=== PATIENT | male | born 1975 | race Caucasian/White ===

== ENCOUNTER 2018-01-14 15:04 | Inpatient (IN) | payer OTHER ==
[2018-01-14 16:36] LABS: ABS Basophils 0.1 10^3/ul (0-0.2); ABS Eosinophils 0.2 10^3/ul (0-0.6); ABS Lymphocytes 2.1 10^3/ul (1.0-4.8); ABS Monocytes 0.6 10^3/ul (0-0.8); ABS Neutrophils 3.4 10^3/ul (1.5-7.7); ABS Nucleated RBC 0 10^3/ul; Eosinophil % 2.6 % (0-6); Hematocrit 42 % (42-52); Hemoglobin 15.4 g/dl (14.0-18.0); Lymphocyte % 33.1 % (25-47); Mean Corpuscular HGB Conc 37 g/dl (31-36); Mean Corpuscular Hemoglobin 32 pg (27-31); Mean Corpuscular Volume 87 fL (80-94); Mean Platelet Volume 6.9 um3 (7.4-10.4); Nucleated Red Blood Cells % 0.1; Platelet Count 242 10^3/ul (150-450); Red Blood Count 4.78 10^6/ul (4.0-5.4); Red Cell Distribution Width 13 % (10.5-15); White Blood Count 6.3 10^3/ul (3.5-10.8)
[2018-01-14 16:41] LABS: Urine Appearance Clear; Urine Blood Negative (Negative); Urine Color Yellow; Urine Ketones Negative (Negative); Urine Protein Negative (Negative); Urine Specific Gravity 1.031 (1.010-1.030); Urine Urobilinogen Positive (Negative)
[2018-01-14] MEDS ORDERED: LORazepam TAB(*) 1 MG PO ONE (21:49)
--- NOTE | 2018-01-14 23:16 | ED ---
Sarah Gardiner Nilda, scribed for Jose Wren MD on 01/14/18 at 1729 . Psychiatric Complaint - HPI Summary HPI Summary: This patient is a 42 year old M presenting to [facility] accompanied by family with a chief complaint of constant SI thoughts and worsening depression for the past few months. Symptoms alleviated by nothing including counseling and medications. Patient denies ETOH and drugs today. Medications include Antidepressant, Ativan, and Limictal. PMHx includes major depressive disorder with anxiety. - History Of Current Complaint Chief Complaint: EDMentalHealth Time Seen by Provider: 01/14/18 15:53 Hx Obtained From: Patient Onset/Duration: Gradual Onset, Lasting Weeks, Still Present Timing: Constant Character: Depressed Alleviating Factor(s): Nothing Related History: Positive For: Prior Psychiatric Issues Has Suicidal: Reports: Thoughts - Allergies/Home Medications Allergies/Adverse Reactions: Allergies Allergy/AdvReac Type Severity Reaction Status Date / Time No Known Allergies Allergy Verified 01/14/18 15:20 Home Medications: Home Medications LORazepam TAB(*) [Ativan 1 MG TAB (*)] 2 mg PO BID 01/14/18 [History Confirmed 01/14/18] Multivitamins/Minerals TAB* [Theragran/minerals TAB*] 1 tab PO DAILY 01/14/18 [ History Confirmed 01/14/18] Vortioxetine (NF) [Trintellix (NF)] 20 mg PO DAILY 01/14/18 [History Confirmed 01/14/18] lamoTRIgine TAB(*) [LaMICtal TAB(*)] 100 mg PO DAILY 01/14/18 [History Confirmed 01/14/18] PMH/Surg Hx/FS Hx/Imm Hx Sensory History: Denies: Hx Legally Blind EENT History: Denies: Hx Deafness Psychiatric History: Reports: Hx Anxiety, Hx Depression, Hx Inpatient Treatment Denies: Hx Eating Disorder, Hx of Violent Episodes Against Others - Immunization History Date of Tetanus Vaccine: Unknown Date of Influenza Vaccine: None Infectious Disease History: No Infectious Disease History: Denies: Traveled Outside the [place] in Last 30 Days - Family History Known Family History: Positive: Diabetes, Other - negative mental health - Social History Alcohol Use: Rare Substance Use Type: Reports: None Smoking Status (MU): Never Smoked Tobacco Review of Systems Negative: Shortness Of Breath Psychological: Other - SI Positive: Depressed All Other Systems Reviewed And Are Negative: Yes Physical Exam - Summary Physical Exam Summary: General: well-appearing, no pain distress Skin: warm, color reflects adequate perfusion, dry Head: normal Eyes: EOMI, MONTEZ ENT: normal Neck: supple, nontender Respiratory: CTA, breath sounds present Cardiovascular: RRR Abdomen: soft, nontender Bowel: present Musculoskeletal: normal, strength/ROM intact Neurological: normal, sensory/motor intact, A&O x3 Psychological: affect/mood appropriate Triage Information Reviewed: Yes Vital Signs On Initial Exam: Initial Vitals Temp Pulse Resp BP Pulse Ox 99.4 F 88 16 128/75 97 01/14/18 15:17 01/14/18 15:17 01/14/18 15:17 01/14/18 15:17 01/14/18 15:17 Vital Signs Reviewed: Yes Diagnostics - Vital Signs Vital Signs Temp Pulse Resp BP Pulse Ox 01/14/18 15:17 99.4 F 88 16 128/75 97 - Laboratory Lab Results: Lab Results 01/14/18 01/14/18 01/14/18 Range/Units 06:00 06:00 16:18 WBC 6.3 (3.5-10.8) 10^3/ul RBC 4.78 (4.0-5.4) 10^6/ul Hgb 15.4 (14.0-18.0) g/dl Hct 42 (42-52) % MCV 87 (80-94) fL MCH 32 H (27-31) pg MCHC 37 H (31-36) g/dl RDW 13 (10.5-15) % Plt Count 242 (150-450) 10^3/ul MPV 6.9 L (7.4-10.4) um3 Neut % (Auto) 54.5 (38-83) % Lymph % (Auto) 33.1 (25-47) % [place] % (Auto) 9.0 H (0-7) % Eos % (Auto) 2.6 (0-6) % Baso % (Auto) 0.8 (0-2) % Absolute Neuts (auto) 3.4 (1.5-7.7) 10^3/ul Absolute Lymphs (auto) 2.1 (1.0-4.8) 10^3/ul Absolute Monos (auto) 0.6 (0-0.8) 10^3/ul Absolute Eos (auto) 0.2 (0-0.6) 10^3/ul Absolute Basos (auto) 0.1 (0-0.2) 10^3/ul Absolute Nucleated RBC 0 10^3/ul Nucleated RBC % 0.1 Sodium 139 (139-145) mmol/L Potassium Pending Chloride 102 (101-111) mmol/L Carbon Dioxide 30 (22-32) mmol/L Anion Gap Pending BUN 19 (6-24) mg/dL Creatinine 0.90 (0.67-1.17) mg/dL Est GFR ( Amer) 119.6 (>60) Est GFR (Non-Af Amer) 93.0 (>60) BUN/Creatinine Ratio 21.1 H (8-20) Glucose 100 (70-100) mg/dL Calcium 9.7 (8.6-10.3) mg/dL Total Bilirubin 0.50 (0.2-1.0) mg/dL AST Pending ALT 23 (7-52) U/L Alkaline Phosphatase 68 (34-104) U/L Total Protein 7.5 (6.4-8.9) g/dL Albumin 4.9 (3.2-5.2) g/dL Globulin 2.6 (2-4) g/dL Albumin/Globulin Ratio 1.9 (1-3) TSH 1.12 (0.34-5.60) mcIU/mL Urine Color Yellow Urine Appearance Clear Urine pH 5.0 (5-9) Ur Specific [place] 1.031 H (1.010-1.030) Urine Protein Negative (Negative) Urine Ketones Negative (Negative) Urine Blood Negative (Negative) Urine Nitrate Negative (Negative) Urine Bilirubin Negative (Negative) Urine Urobilinogen Positive A (Negative) Ur Leukocyte Esterase Negative (Negative) Urine Glucose Negative (Negative) Salicylates < 2.50 (<30) mg/dL Urine Opiates Screen (None Detect) Acetaminophen < 15 mcg/mL Ur Barbiturates Screen (None Detect) Ur Phencyclidine Scrn (None Detect) Ur Amphetamines Screen (None Detect) U Benzodiazepines Scrn (None Detect) Urine Cocaine Screen (None Detect) U Cannabinoids Screen (None Detect) Serum Alcohol < 10 (<10) mg/dL 05/07/18 Range/Units 16:18 WBC (3.5-10.8) 10^3/ul RBC (4.0-5.4) 10^6/ul Hgb (14.0-18.0) g/dl Hct (42-52) % MCV (80-94) fL MCH (27-31) pg MCHC (31-36) g/dl RDW (10.5-15) % Plt Count (150-450) 10^3/ul MPV (7.4-10.4) um3 Neut % (Auto) (38-83) % Lymph % (Auto) (25-47) % [place]lan % (Auto) (0-7) % Eos % (Auto) (0-6) % Baso % (Auto) (0-2) % Absolute Neuts (auto) (1.5-7.7) 10^3/ul Absolute Lymphs (auto) (1.0-4.8) 10^3/ul Absolute Monos (auto) (0-0.8) 10^3/ul Absolute Eos (auto) (0-0.6) 10^3/ul Absolute Basos (auto) (0-0.2) 10^3/ul Absolute Nucleated RBC 10^3/ul Nucleated RBC % Sodium (139-145) mmol/L Potassium Chloride (101-111) mmol/L Carbon Dioxide (22-32) mmol/L Anion Gap BUN (6-24) mg/dL Creatinine (0.67-1.17) mg/dL Est GFR ( Amer) (>60) Est GFR (Non-Af Amer) (>60) BUN/Creatinine Ratio (8-20) Glucose (70-100) mg/dL Calcium (8.6-10.3) mg/dL Total Bilirubin (0.2-1.0) mg/dL AST ALT (7-52) U/L Alkaline Phosphatase (34-104) U/L Total Protein (6.4-8.9) g/dL Albumin (3.2-5.2) g/dL Globulin (2-4) g/dL Albumin/Globulin Ratio (1-3) TSH (0.34-5.60) mcIU/mL Urine Color Urine Appearance Urine pH (5-9) Ur Specific [place] (1.010-1.030) Urine Protein (Negative) Urine Ketones (Negative) Urine Blood (Negative) Urine Nitrate (Negative) Urine Bilirubin (Negative) Urine Urobilinogen (Negative) Ur Leukocyte Esterase (Negative) Urine Glucose (Negative) Salicylates (<30) mg/dL Urine Opiates Screen None detected (None Detect) Acetaminophen mcg/mL Ur Barbiturates Screen None detected (None Detect) Ur Phencyclidine Scrn None detected (None Detect) Ur Amphetamines Screen None detected (None Detect) U Benzodiazepines Scrn None detected (None Detect) Urine Cocaine Screen None detected (None Detect) U Cannabinoids Screen None detected (None Detect) Serum Alcohol (<10) mg/dL Result Diagrams: 01/14/18 06:00 01/14/18 16:18 Lab Statement: Any lab studies that have been ordered have been reviewed, and results considered in the medical decision making process. Course/Dx - Course Course Of Treatment: Medically cleared for MHE at 19:06. Medications reviewed. - Differential Dx/Clinical Impression Provider Diagnosis: Mental health problem Discharge - Sign-Out/Discharge Documenting (check all that apply): Sign-Out Patient Signing out patient TO: Dougie Xiao - pending dispo, awaiting MHE. - Discharge Plan Condition: Stable Disposition: [facility]ATRIC FACILITY-[facility] [place] Discharge Disposition Comment: pending dispo, awaiting MHE. Referrals: Otilio Malin MD [Primary Care Provider] - - Billing Disposition and Condition Condition: STABLE Disposition: [facility] [place] The documentation as recorded by the Sarah khan Nilda accurately reflects the service I personally performed and the decisions made by , Jose Wren MD.
--- NOTE | 2018-01-15 06:32 | ED ---
Taryn Gardiner Rebecca, scribed for Dougie Xiao MD on 01/15/18 at 0612 . Progress - Progress Note Progress Note: Pt was signed out by Dr. Wren, pending disposition, awaiting MHE. Course/Dx - Course Course Of Treatment: Pt was signed out by Dr. Wren pending disposition, awaiting MHE. At shift change, the case has been reviewed by Dr. Palomino ( psychiatrist) and pt has been designated as a MHU hold and will be signed out to the next ED attending, Dr. Cruz. - Diagnoses Provider Diagnoses: Mental health problem Discharge - Sign-Out/Discharge Documenting (check all that apply): Sign-Out Patient, Receiving Sign-Out Signing out patient TO: Emmanuel Cruz Receiving patient FROM: Jose Wren - Discharge Plan Condition: Stable Disposition: [facility]AT[facility] FACILITY[facility] [place] Referrals: Otilio Malin MD [Primary Care Provider] - The documentation as recorded by the Taryn khan Rebecca accurately reflects the service I personally performed and the decisions made by Ninoska temple Abdul, MD.
[2018-01-15] MEDS ORDERED: LORazepam TAB(*) 1 MG PO ONE (11:05)
[2018-01-15] MEDS ORDERED: lamoTRIgine TAB(*) 25 MG PO ONE (11:05)
[2018-01-15] MEDS ORDERED: lamoTRIgine TAB(*) 100 MG PO ONE (12:00)
[2018-01-15] MEDS: VORTIOXETINE 10 MG PO SCH (12:20)
[2018-01-15] MEDS ORDERED: Al Hydrox/Mg Hydrox/Simet LIQ* 30 ML UDC PO PRN (13:52)
[2018-01-15] MEDS ORDERED: Acetaminophen TAB* 325 MG PO ONE (13:52)
--- NOTE | 2018-01-15 15:56 | ED ---
Nick Gardiner Jennifer, scribed for Emmanuel Cruz MD on 01/15/18 at 1107 . Progress - Progress Note Progress Note: Pt was signed out by Dr. Xiao, pending disposition, awaiting MHE. The patient has had a mental health evaluation and will be admitted to [facility] [place]. - Consult/PCP Time Called: 19:07 Course/Dx - Course Course Of Treatment: Pt was signed out by Dr. Xiao pending MHE and disposition. The patient is diagnosed with major depression and admitted to [facility] [place]. - Diagnoses Provider Diagnoses: Major depression Discharge - Sign-Out/Discharge Documenting (check all that apply): Discharge/Admit/Transfer - Discharge Plan Condition: Stable Disposition: [facility]AT[facility] FACILITY[facility] [place] - Billing Disposition and Condition Condition: STABLE [facility]position: [facility] [place] The documentation as recorded by the Nick khan Jennifer accurately reflects the service I personally performed and the decisions made by Anthony temple Tudie-Ann, MD.
[2018-01-15] MEDS ORDERED: traZODone TAB* 100 MG PO SCH (21:00)
[2018-01-15] MEDS: lamoTRIgine TAB(*) 100 MG PO SCH (21:06)
[2018-01-16] MEDS: VORTIOXETINE 10 MG PO SCH (08:28)
--- NOTE | 2018-01-16 10:05 | HP ---
H&P (Free Text) History and Physical: Psychiatric Attending History and Physical NAME: Jet Asher : 1975 AGE: 42 PROVIDER: Yonny Yin D.O. DATE OF ADMISSION: 01/16/2018 JUSTIFICATION FOR ADMISSION: Patient brought tot he emergency room by his after revealing that he has been ruminating about committing suicide daily with a plan to hang himself. Patient has history of recurrent depression and two past suicide attempts. He requires imminent admission to an inpatient psychiatric unit for treatment 24 hour supervision as he is danger to self CHIEF COMPLAINT: "My depression started again in early august and its gotten worse to the point that I only feel dread, anxiety, loss of pleasure. I came to get help because I couldn't stop thinking about ending my life..." HISTORY OF THE PRESENT ILLNESS: Mr Asher is a 42 yo father of two children who is temporarily living with parents since leaving family home a month ago after he and his agreed that his young children would be better off if not exposed to his depression which included daily crying spells. Mr. Asher is a reliable historian. I also reviewed past records including his admissions to [facility] in Jul and Aug 2014. Mr Asher reports that he has been diagnosed with Recurrent Depression and OCD but he does not believe that the latter diagnosis is correct. His history is remarkable for being treated with antidepressant medication since 1996 when he first was treated for panic attacks in college. He had his first hospitalization and first depressive episode in 2004 at the age of 30. He attempted suicide by Lexapro overedose at that time. He was treated successfully with Celexa up until 2013 when he had a recurrent episode. He was readmitted to [facility] in 07/2014. at that time patient's symptoms also included rumination over childhood football injury including the belief that this had led to right sided weakness, missed opportunities in his life. 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 patient refused antidepressants and was discharged on low dose depakote and valium for sleep. He was referred to residential OCD treatment program in [place] but left that program after one week. He was readmitted to [facility] in 08/2014 for persistent severe depression after having placed a noose around his neck at his parents home and contemplating committing suicide. patient was discharged on prozac 80 mg and Seroquel 25 mg qam and 100 mg qhs after 2 week hospital stay. Patient was to follow up at [facility]. Patient represented to the ED two weeks after discharge in late September 2013 after having discharged a firearm at parents home in the context of ruminating about suicide. Of concern was that patients parents had participated in family meetings and had assured that their son had no access to firearms. No bed was available and patient was transferred and admitted to [facility]. He relates that he was started on Effexor titrated up to 112.75 mg (having been lowered from 150 mg which resulted in agitation). Since discharge from that hospital stay in Sep 2014 patient's effexor was renewed by his PCP. patient reports that he functioned very well, was able to work, and take care of his family, and was not experiencing anxiety or obsessional ruminations. He was compliant with his medication. 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 Patient reports that his anger caused him to excercise poor judgment on multiple occasions including sending emails to his boss which were uncharacteristically blunt and devaluing. He also reports excercising poor boundaries with a female colleague in terms of being emotionally too intimate and attempting to give her advise which he believes was crossing boundaries that he normally doesnt cross. complaint was filed against him that he was physically to close to her. patient denies problems with sleep or decreased need for sleep,hypersexuality, excessive spending, shoplifting, breaking the law, homicidal ideation, hallucinations, delusions, or paranoid ideation. In late July 2017 he reports that he began to feel sad and quite abruptly he had onset of another depressive episode characterized by anhedonia, low energy, increased fatigue, preoccupation with feelings of hopelessness, worthlessness, obsessing about high school football injury once again, incresed guilt and remorse about past mistakes or perceived transgressions., feelings of dread, intense fear and despair, decreaed appetite with 20 lb weight loss,inability to go to work, poor concentration and inability to continue with his graduate studies. Patient also reports crying daily with almost daily thoughts of suicide which he did not share with his therapist. patient saw is GP in early august who raised Effexor to 150 mg daily with no improvement. By end of August symptoms were so severe that he returned to his GP who added Wellbutrin. At that time pateint reports he had multiple somatic symptoms, felt physcially unwell and very agitated. He was referred to Brittany Rae NP for medication evaluation who he first saw in October 2017. He was tapered off Effexor XR and started on Trintellix which was raised a month ago to 20 mg daily. Lamictal was started a month ago and is currently at 100 mg daily. Patient reports no improvement from this regimen. He was also given Ativan 2 mg BID which has been helping with sleep and daytime agitation. In late October, he moved to parents home so crying wouldn't upset his children. He has been unable to work since late August 2017 and his job is being held for him. Patient reports main stressor is that he has been relying on his parents for financial and emotional support and he feels very guilty about this. also worries about strain on his who homeschools his two sons. PAST PSYCHIATRIC HISTORY: Patient is currently followed by Brittany Rae NP for medication management. He has been seeing a therapist twice weekly named Leonor Gage. past medication trials include: lexapro, Prozac, Paxil, Citalopram, Wellbutrin, Duloxetine, Venlafaxine, Klonopin Diazepam, Ambien, Trintellix, Lamictal, Ativan, Seroquel. reports cutting himself once as a way of punishing himself. SUBSTANCE ABUSE HISTORY: denies past or present abuse of alcohol or drugs. PAST MEDICAL HISTORY: reports that he sustained injury to neck and right side of his body while playing football in 8th grade. states he was "paralyzed" at the time. never came to medical attention. since that injury he has at various times attributed various somatic complaints as arising secondary to that accidental injury. CURRENT MEDICATIONS: Trintellix 20 mg qd Lamictal 100 mg qam Ativan 2 mg BID ALLERGIES: NKDA FAMILY PSYCHIATRIC HISTORY: Alcoholism on paternal side. denies any known family history of psychiatric illness or suicide. FAMILY/PSYCHOSOCIAL HISTORY: Born and raised in [place]. family was intact. father worked as engineering surveyor. mother worked as teacher. He has one older brother. Did well in elementary school and middle school. denies disruptive behaviors, hyperactivity, attentional probelms in early or middle childhood. Grades began to slip in high school. reports he became more defiant and began displaying a temper which he had previously never had. "Its like I had a chip on my shoulder". binge drank from age 17 to 22. arrested twice for public intoxication. graduated high school and went to [employer] for college. Had "first mental health issue in college". developed panic attacks toward end of college and was treated with Paxil. Did well academically and graduated [employer] in 1998 (took him five years to graduate). 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 met and in 2005. 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 REVIEW OF SYSTEMS: 14 point review of systems was non contributory Vital Signs: Temp Pulse Resp BP Pulse Ox 99.2 F 87 14 104/68 99 01/16/18 07:29 01/16/18 07:29 01/16/18 20:14 01/16/18 07:29 01/16/18 07:29 PHYSICAL EXAMINATION: Skin: warm, dry, reflects adequate perfusion, no exanthem Head: atraumatic Neck: supple, non-tender, no cervical or submandibular adenopathy, no bruits Eyes: EOMI, MARLEN, conjunctiva without injection ENT: no nasal discharge, TM's w/o injection, pharynx without exudate or injection, no tonsillar hypertrophy, mucous membranes moist. no evidence of oral lesions Respiratory: CTA bilaterally without expiratory wheezing, no rhonchi, no retractions visible Cardiovascular: RRR normal s1 and s2. radial, brachoradialis, dorsalis pedis pulses symmetic 5+/5 bilaterally Abdomen: soft non tender, normoactive bowel sound present in all quadrants, no HSM, no palpable masses Musculoskeletal: full range of motions in all extremities, no evidence of spinal curvature Lymph: no axillary lypmphadenopathy Neuro: CN 2 to 12 intact, no sensory deficits, motor 5+/5 in upper and lower extremites, bilaterally symmetric no cerebellar signs, normal gait, no tremor MENTAL STATUS EXAMINATION: Patient is a well developed and nourished tall 43 year old male. j Patient was fairly related and came into interview willingly. He was dressed casually and had adequate hygiene. patient has an anxious demeanor and was somewhat restless during the interview. He appeared to be in mild to moderate emotional distress. He frequently mentioned feeling very anxious, fearful and experiencing significant feeling of dread or worry that something terrible was going to happen. .Speech is normal rate and volume. normal fluency and spontaneity. patient articulate Mood: is dysphoric and very anxious. patient has mild psychomotor agitation. affect is constricted, sad, anxious, with low amplitude of response. Thought process is logical, goal directed and coherent. Thought content: patient endorses the following depressive symptoms: decreased concentration, dysphoric mood, crying jags, decreased energy, decreased motivation, loss of interest and decreased ability to experience pleasure,daily daily thougths of suicide with recent increase in his intention to carry it out by hanging himself this is second time that he informed family about the severity of his suicidal impulses because of his fear that he was going to act upon his impulses, decreased ability to fall asleep at times decreased appetite with 20 lb weight loss in past 4 weeks, feeling increased shame and regret for past events. denies auditory, visual hallucinations, Paranoia, delusions, denies homicidal thoughts. Cogntive: alert and fully oriented in all spheres. He reports diminished concentration past few months. attention, concentration and memory not tested due to time constraints. Insight and Judgment both good/intact. LABORATORY DATA: Laboratory Results - last 24 hr 01/16/18 01/16/18 15:54 15:54 Hemoglobin A1c 4.4 Free T4 0.67 Thyroxine (T4) 5.68 L Laboratory Last Values WBC 6.3 10^3/ul (3.5-10.8) 01/14/18 06:00 RBC 4.78 10^6/ul (4.0-5.4) 01/14/18 06:00 Hgb 15.4 g/dl (14.0-18.0) 01/14/18 06:00 Hct 42 % (42-52) 01/14/18 06:00 MCV 87 fL (80-94) 01/14/18 06:00 MCH 32 pg (27-31) H 01/14/18 06:00 MCHC 37 g/dl (31-36) H 01/14/18 06:00 RDW 13 % (10.5-15) 01/14/18 06:00 Plt Count 242 10^3/ul (150-450) 01/14/18 06:00 MPV 6.9 um3 (7.4-10.4) L 01/14/18 06:00 Neut % (Auto) 54.5 % (38-83) 01/14/18 06:00 Lymph % (Auto) 33.1 % (25-47) 01/14/18 06:00 [place] % (Auto) 9.0 % (0-7) H 01/14/18 06:00 Eos % (Auto) 2.6 % (0-6) 01/14/18 06:00 Baso % (Auto) 0.8 % (0-2) 01/14/18 06:00 Absolute Neuts (auto) 3.4 10^3/ul (1.5-7.7) 01/14/18 06:00 Absolute Lymphs (auto) 2.1 10^3/ul (1.0-4.8) 01/14/18 06:00 Absolute Monos (auto) 0.6 10^3/ul (0-0.8) 01/14/18 06:00 Absolute Eos (auto) 0.2 10^3/ul (0-0.6) 01/14/18 06:00 Absolute Basos (auto) 0.1 10^3/ul (0-0.2) 01/14/18 06:00 Absolute Nucleated RBC 0 10^3/ul 01/14/18 06:00 Nucleated RBC % 0.1 01/14/18 06:00 Sodium 139 mmol/L (139-145) 01/14/18 16:18 Potassium TNP 01/14/18 16:18 Chloride 102 mmol/L (101-111) 05/07/18 16:18 Carbon Dioxide 30 mmol/L (22-32) 01/14/18 16:18 Anion Gap 7 mmol/L (2-11) 01/14/18 16:18 BUN 19 mg/dL (6-24) 01/14/18 16:18 Creatinine 0.90 mg/dL (0.67-1.17) 01/14/18 16:18 Est GFR ( Amer) 119.6 (>60) 01/14/18 16:18 Est GFR (Non-Af Amer) 93.0 (>60) 01/14/18 16:18 BUN/Creatinine Ratio 21.1 (8-20) H 01/14/18 16:18 Glucose 100 mg/dL (70-100) 01/14/18 16:18 Hemoglobin A1c 4.4 % (4.0-5.6) 01/16/18 15:54 Calcium 9.7 mg/dL (8.6-10.3) 01/14/18 16:18 Total Bilirubin 0.50 mg/dL (0.2-1.0) 01/14/18 16:18 AST TNP 01/14/18 16:18 ALT 23 U/L (7-52) 01/14/18 16:18 Alkaline Phosphatase 68 U/L (34-104) 01/14/18 16:18 Total Protein 7.5 g/dL (6.4-8.9) 01/14/18 16:18 Albumin 4.9 g/dL (3.2-5.2) 01/14/18 16:18 Globulin 2.6 g/dL (2-4) 01/14/18 16:18 Albumin/Globulin Ratio 1.9 (1-3) 01/14/18 16:18 TSH 1.12 mcIU/mL (0.34-5.60) 01/14/18 16:18 Free T4 0.67 ng/dL (0.61-1.12) 01/16/18 15:54 Thyroxine (T4) 5.68 mcg/mL (6.09-12.23) L 01/16/18 15:54 Urine Color Yellow 01/14/18 06:00 Urine Appearance Clear 01/14/18 06:00 Urine pH 5.0 (5-9) 01/14/18 06:00 Ur Specific [place] 1.031 (1.010-1.030) H 01/14/18 06:00 Urine Protein Negative (Negative) 01/14/18 06:00 Urine Ketones Negative (Negative) 01/14/18 06:00 Urine Blood Negative (Negative) 01/14/18 06:00 Urine Nitrate Negative (Negative) 01/14/18 06:00 Urine Bilirubin Negative (Negative) 01/14/18 06:00 Urine Urobilinogen Positive (Negative) A 01/14/18 06:00 Ur Leukocyte Esterase Negative (Negative) 01/14/18 06:00 Urine Glucose Negative (Negative) 01/14/18 06:00 Salicylates < 2.50 mg/dL (<30) 01/14/18 16:18 Urine Opiates Screen None detected (None Detect) 01/14/18 16:18 Acetaminophen < 15 mcg/mL 01/14/18 16:18 Ur Barbiturates Screen None detected (None Detect) 01/14/18 16:18 Ur Phencyclidine Scrn None detected (None Detect) 01/14/18 16:18 Ur Amphetamines Screen None detected (None Detect) 01/14/18 16:18 U Benzodiazepines Scrn None detected (None Detect) 01/14/18 16:18 Urine Cocaine Screen None detected (None Detect) 01/14/18 16:18 U Cannabinoids Screen None detected (None Detect) 01/14/18 16:18 Serum Alcohol < 10 mg/dL (<10) 01/14/18 16:18 IMPRESSION: 42 yo with history of recurrent severe depressive episodes (this would be third ) associated with suicidal ideation and at least two suicide attempts. necessitating multiple psychiatric hospitalization. Between epiosdes of illness patient had many years of being in complete remission. Patient had first onset of jackie about one year ago which lasted for about 6 months and was followed by abrupt cycling into depressive syndrome which had onset in early August and has become increasingly more disabling leading up to the current admission. Patient mental status reveal profound dysphoria, despair, psychomotor agiation, suicidal ideation with strong impulsses to hang himself with a belt or noose. Patient is not actively suicidal at present time and contracts for safety. Patient has a significant anxious component to current depression and I would classify it as an agitated depression. patient has significant anticipatory anxiety, dread, fear which would best be classified as an unspecified anxiety disorder. His tendency to ruminate about somatic symptoms and past injury are commonly seen during episodes of depression. He denies rituals, compulsions, intrusive thoughts with typical ocd themes of scrupulousness, germs, zoroastrianism, symmetry. DIAGNOSES: Bipolar Disorder type I current episode depressed severe with agitation and obsessional rumination Anxiety disorder unspecified rule out panic disorder (reemergence) rule out obsessive compulsive personality disorder PLAN: patient will be admitted to [facility] as an involuntary patient. he will be placed on q 15 min observation. Milieu, individual and group therapies. social work evaluation for therapy and discharge planning. to see psychiatry daily for medication management in order to address target psychiatric symptoms pharmacologically. family meeting in future to increase data base. psychoeducation with patient with regard to bipolar disorder. after full discussino of diagnostic impressions and treatment alternatives, patient gave informed consent to treatment with [place] Carbonate, Lamictal and Ativan initially. we will reassess daily and consider other medications if patient is not making progress. no need to repeat MRI or EEG as these were done in 2013.
[2018-01-16] MEDS ORDERED: LORazepam TAB(*) 0.5 MG PO ONE (15:16)
[2018-01-16] MEDS ORDERED: OLANzapine TAB*ODT* 5 MG PO PRN (15:18)
[2018-01-16] MEDS: lamoTRIgine TAB(*) 100 MG PO SCH (20:14)
[2018-01-16] MEDS: Lithium Carbonate ER* 450 MG TAB.ER PO SCH (20:15)
[2018-01-16] MEDS ORDERED: LORazepam TAB(*) 0.5 MG PO SCH (21:00)
[2018-01-17] MEDS: Lithium Carbonate ER* 450 MG TAB.ER PO SCH ×2 (08:35→20:15)
[2018-01-17] MEDS: VORTIOXETINE 10 MG PO SCH (08:36)
--- NOTE | 2018-01-17 10:27 | PN ---
Subjective - Subjective Subjective: Psychiatric Attending progress Note: Per nursing patient tends to be seclusive, spends alot of time in room yesterday did not attend many groups. Today he has been out of his room more and attended 3 groups today. I saw Skyler with hospital social worker Sharron Edmonds today. He continues to present as flat, dysphoric, and anxious. He has trouble making eye contact. His fluency is reduced. Verbal responses are delayed, and he appears to be expending considerable effort to respond. There is considerable internal agitation that I sense and likely he is preoccupied internally with many worries. perseverates about possible side effect from lithium (which he doesn't have), perseverates about becoming addicted if he uses too much ativan. asked if we would be meeting tomorrow. has considerable difficulties making decisions (should my parents be invited to family meeting). also worried alot about his thesis which his college has allowed him to defer to February 2018. skyler denied suicidal ideation today. He believes the ativan helps during the day. He had some difficulty sleeping last night but did manage to get 6 to 8 hours. He did not request Zyprexa which was available as a prn. we agreed to hold family meeting next week. He requested computer priveleges so he could check his graduate program email. He is not interested in staff pass as he has been fearful of going outside which he views as "agoraphobic". He describes being on verge of panic for past 5 months-- again not typical physical symptoms of panic but more psychical components including fear, panic, dread, belief that something terrible is going to happen. I shared that xanax and klonopoin are typically better for panic but he reports ativan works better for his anxiety. He agreed to allow me to change am ativan to scheduled so that he is now taking 2 mg BID. and I will add an additional 2 mg daily prn for total max of 6 mg daily. Objective - Appearance Appearance: Well Developed/Nourished, Obese Dysmorphic Features: No Hygiene: Normal Grooming: Well Kept - Behavior Psychomotor Activities: Abnormal-Decreased Exhibits Abnormal Movement: No - Attitude and Relatedness Attitude and Relatedness: Cooperative Eye Contact: Fair - Speech Quality: Unpressured Latencies: Long Quantity: Terse - Mood Patient's Decription of Mood: "Anxious" - Affect Observed Affect: Constricted - tense, Affect Consistent with: Dysphoria - Thought Process Patient's Thought Process: Coherent Thought Content: Yes Passive Wish, No Suicidal Planning, No Homicidal Ideation, No Paranoid Ideation - Sensorium Type of Hallucinations: Visual: No, Auditory: No, Command: No - Level of Consciousness Level of Consciousness: Alert Orientation: Yes Intact, Yes Orientated to Time, Yes Orientated to Place, Yes Orientated to Person - Impulse Control Impulse Control: Intact - Insight and Judgement Insight and Judgement: Good - Group Participation Particating in Group Activities: Yes Assessment - Assessment Merits Inpatient Hospitalization: For Stabilization, For Ongoing Evaluation, For Discharge Planning Clinical Impression: bipolar disorder current episode depressed severe with agitated component Anxiety Disorder unspecified (atypical panic, rumination, perseveration) personality disorder unspecified (dependent, obsessive compulsive traits) Plan - Plan Treatment Plan: Plan: [place] CR 450 mg BID increase to 450/675 on Sunday ativan 2 mg BID and 2 mg additional prn Change Lamictal to 50 mg QAM and 75 mg QHS on Sunday Lower Trintellix to 5 mg daily on Sunday Consider adding Rexulti and Imipramine for augmentation of depression and to treat panic will discuss further with patient q 30 min add staff pass add comfort room priveleges with computer priveleges family meeting next week Medications: Current Medications Al Hydrox/Mg Hydrox/Simethicone (Maalox Plus*) 30 ml PO Q6H PRN PRN Reason: INDIGESTION Lamotrigine (Lamictal Tab(*)) 100 mg PO BEDTIME [facility] Last Admin: 01/16/18 20:14 Dose: 100 mg [place] Carbonate ([place] Carbonate Er Tab*) 450 mg PO BID@ [facility] Last Admin: 01/17/18 08:35 Dose: 450 mg Lorazepam (Ativan Tab(*)) 2 mg PO BEDTIME [facility] Last Admin: 01/16/18 20:14 Dose: 2 mg Lorazepam (Ativan Tab(*)) 2 mg PO DAILY PRN PRN Reason: ANXIETY Olanzapine (Zyprexa * Tab Odt) 5 mg PO BEDTIME PRN PRN Reason: agitation or insomnia Vortioxetine (Trintellix (Nf)) 10 mg PO DAILY [facility] Last Admin: 01/17/18 08:36 Dose: 10 mg
--- NOTE | 2018-01-17 11:32 | PN ---
[facility]: Group Therapy Note - Service Type Service Type: [id number] Group Psychotherapy - Cognitive Behavioral Group Therapy ( CBT):Patient was attentive and participatory in CBT programming this morning, and remained in good behavioral control. Patient expressed positive insights regarding relevant treatment interventions and goals.
[2018-01-17] MEDS: LORazepam TAB(*) 1 MG PO PRN (13:53)
[2018-01-17] MEDS: lamoTRIgine TAB(*) 100 MG PO SCH (20:15)
[2018-01-17] MEDS: LORazepam TAB(*) 1 MG PO SCH (20:16)
[2018-01-18] MEDS: Lithium Carbonate ER* 450 MG TAB.ER PO SCH ×2 (08:25→20:21)
[2018-01-18] MEDS: VORTIOXETINE 10 MG PO SCH (08:26)
[2018-01-18] MEDS: LORazepam TAB(*) 1 MG PO SCH ×2 (08:26→20:22)
--- NOTE | 2018-01-18 12:22 | PN ---
Subjective - Subjective Subjective: Psychiatric Attending Progress Note: remains sullen, dysphoric, flat affect. Tells me that he has been attending 3 groups but that he is unable to tolerate more than that. needs time alone in his room to rest. tells me that he gets over whelmed and anxious after 3 groups. In a similar manner, he cannot tolerate going outside past few months. He did go on staff pass yesterday and will try to go today. I encouraged him to go on staff pass. We talked in length about medication. patient remains overly concerned about having adverse effects from medication citing prozac/seroquel combination was "disastrous". I told him that his reticence to accept medication does not jive with the marked impairement and disruption of functioning that depression has caused inhis life. add to that the months of not getting better with outpatient therapy. I shared that lithium was going to help with maintenance of his mood disorder and prevent recurrences but that he needed a medicatino or two medications that were abortive medication which would acutely and rapidly address his symptoms. quite frankly: "you need to get better and get back to your and children." Patient remains preoccupied with potential side effects. He agreed to start Cymbalta 30 mg po QAM but not Rexulti or Latuda which I also wanted to start. Objective - Appearance Appearance: Well Developed/Nourished Dysmorphic Features: No Hygiene: Normal Grooming: Fairly Well Kept - Behavior Psychomotor Activities: Abnormal-Decreased Exhibits Abnormal Movement: No - Attitude and Relatedness Attitude and Relatedness: Cooperative Eye Contact: Fair - Speech Quality: Unpressured Latencies: Long Quantity: Terse - Mood Patient's Decription of Mood: "Anxious" - Affect Observed Affect: Depressed Affect Consistent with: Dysphoria - Thought Process Patient's Thought Process: Over Inclusive Thought Content: No Passive Wish, No Suicidal Planning, No Homicidal Ideation, No Paranoid Ideation - Sensorium Experiencing Hallucinations: No, Sensorium is Clear Type of Hallucinations: Visual: No, Auditory: No - Level of Consciousness Level of Consciousness: Alert Orientation: Yes Intact, Yes Orientated to Time, Yes Orientated to Place, Yes Orientated to Person - Impulse Control Impulse Control: Intact - Insight and Judgement Insight and Judgement: Good - Group Participation Particating in Group Activities: Yes - Medication Management Medication Management Adherence: Yes Assessment - Assessment Clinical Impression: bipolar disorder current episode depressed severe with agitated component Anxiety Disorder unspecified (atypical panic, rumination, perseveration) personality disorder unspecified (dependent, obsessive compulsive traits) Plan - Plan Treatment Plan: Plan: increase to 450/675 on Sunday and then to 675 mg BID on sunday ativan 2 mg BID and 2 mg additional prn Change Lamictal to 50 mg QAM and 75 mg QHS on Sunday Lower Trintellix to 5 mg po QAM in morning start Cymbalta 30 mg po daily in am Consider adding Rexulti and Imipramine for augmentation of depression and to treat panic will discuss further with patient family meeting next week Medications: Current Medications Al Hydrox/Mg Hydrox/Simethicone (Maalox Plus*) 30 ml PO Q6H PRN PRN Reason: INDIGESTION Lamotrigine (Lamictal Tab(*)) 100 mg PO BEDTIME [facility] Last Admin: 01/17/18 20:15 Dose: 100 mg [place] Carbonate ([place] Carbonate Er Tab*) 450 mg PO BID@ [facility] Last Admin: 01/18/18 08:25 Dose: 450 mg Lorazepam (Ativan Tab(*)) 2 mg PO DAILY PRN PRN Reason: ANXIETY Last Admin: 01/17/18 13:53 Dose: 2 mg Lorazepam (Ativan Tab(*)) 2 mg PO BID@ [facility] Last Admin: 01/18/18 08:26 Dose: 2 mg Olanzapine (Zyprexa * Tab Odt) 5 mg PO BEDTIME PRN PRN Reason: agitation or insomnia Vortioxetine (Trintellix (Nf)) 10 mg PO DAILY [facility] Last Admin: 01/18/18 08:26 Dose: 10 mg
[2018-01-18] MEDS: lamoTRIgine TAB(*) 100 MG PO SCH (20:22)
[2018-01-19] MEDS: CMCS: Vortioxetine (NF) 10 MG TAB (FORMERLY Brintellix) PO SCH (08:28)
[2018-01-19] MEDS: DULoxetine DR CAP* 30 MG CAP.DR PO SCH (08:28)
[2018-01-19] MEDS: Lithium Carbonate ER* 450 MG TAB.ER PO SCH ×2 (08:28→20:00)
[2018-01-19] MEDS: LORazepam TAB(*) 1 MG PO SCH ×2 (08:28→19:59)
[2018-01-19] MEDS: LORazepam TAB(*) 1 MG PO PRN (13:53)
[2018-01-19] MEDS: lamoTRIgine TAB(*) 100 MG PO SCH (19:59)
[2018-01-20] MEDS: DULoxetine DR CAP* 30 MG CAP.DR PO SCH (08:39)
[2018-01-20] MEDS: Lithium Carbonate ER* 450 MG TAB.ER PO SCH ×2 (08:39→20:07)
[2018-01-20] MEDS: CMCS: Vortioxetine (NF) 10 MG TAB (FORMERLY Brintellix) PO SCH (08:40)
[2018-01-20] MEDS: LORazepam TAB(*) 1 MG PO SCH ×2 (08:41→20:09)
--- NOTE | 2018-01-20 13:13 | PN ---
Subjective - Subjective Date of Service: 01/20/18 Service Type: 91101 Hosp care 15 min low complexity Subjective: Shasha is seen in weekend coverage for Dr. Yin. He is found in his room, lying supine in bed, awake but isolating to himself. He reports some mild sedation from recent med changes and says that he's taking it easy this weekend to get some rest. "I'll go do some painting during rec group this afternoon." He remains depressed and withdrawn with psychomotor retardation, however, he notes that his SI has dissipated since admission and he thinks the unit is doing him good. Objective - Appearance Appearance: Well Developed/Nourished Dysmorphic Features: No Hygiene: Normal Grooming: Well Kept - Behavior Psychomotor Activities: Abnormal-Decreased Exhibits Abnormal Movement: No - Attitude and Relatedness Attitude and Relatedness: Withdrawn Eye Contact: Good - Speech Quality: Unpressured Latencies: Normal Quantity: Terse - Mood Patient's Decription of Mood: "Sad" - Affect Observed Affect: Constricted Affect Consistent with: Dysphoria - Thought Process Patient's Thought Process: Coherent Thought Content: No Passive Wish, No Suicidal Planning, No Homicidal Ideation, No Paranoid Ideation - Sensorium Experiencing Hallucinations: No, Sensorium is Clear Type of Hallucinations: Visual: No, Auditory: No, Command: No - Level of Consciousness Level of Consciousness: Alert Orientation: Yes Intact, Yes Orientated to Time, Yes Orientated to Place, Yes Orientated to Person - Impulse Control Impulse Control: Tenuous - Insight and Judgement Insight and Judgement: Fair - Group Participation Particating in Group Activities: Yes - Medication Management Medication Management Adherence: Yes Assessment - Assessment Merits Inpatient Hospitalization: For Immediate Safety, For Stabilization Inpatient DSM-V Dx: F31.4 Clinical Impression: 42 y.o. , white male with a history of bipolar depression admitted for treatment refractory depressive episode associated with suicidality. Plan - Plan Treatment Plan: Name: SHASHA GRAYSON Birthdate: 1975 [id number] The patient remains on lamotrigine and vortioxetine therapies from outpatient setting. [place] and duloxetine have been added. The patient remains depressed and warrants further care in a locked and secured inpatient setting for safety. Continued Medication Management: Different Medication Medications: Current Medications Al Hydrox/Mg Hydrox/Simethicone (Maalox Plus*) 30 ml PO Q6H PRN PRN Reason: INDIGESTION Duloxetine HCl (Cymbalta Cap*) 60 mg PO DAILY [facility] Lamotrigine (Lamictal Tab(*)) 100 mg PO BEDTIME [facility] Stop: 01/20/18 21:01 Last Admin: 01/19/18 19:59 Dose: 100 mg Lamotrigine (Lamictal Tab(*)) 50 mg PO DAILY [facility] Lamotrigine (Lamictal Tab(*)) 75 mg PO BEDTIME [facility] [place] Carbonate ([place] Carbonate Er Tab*) 450 mg PO DAILY [facility] Last Admin: 01/20/18 08:39 Dose: 450 mg [place] Carbonate ([place] Carbonate Er Tab*) 675 mg PO BEDTIME [facility] Last Admin: 01/19/18 20:00 Dose: 675 mg Lorazepam (Ativan Tab(*)) 2 mg PO DAILY PRN PRN Reason: ANXIETY Last Admin: 01/19/18 13:53 Dose: 2 mg Lorazepam (Ativan Tab(*)) 2 mg PO BID@ [facility] Last Admin: 01/20/18 08:41 Dose: Not Given Olanzapine (Zyprexa * Tab Odt) 5 mg PO BEDTIME PRN PRN Reason: agitation or insomnia Vortioxetine (Trintellix (Nf)) 5 mg PO DAILY [facility] Stop: 01/21/18 09:01 Last Admin: 01/20/18 08:40 Dose: 5 mg - Discharge Plan Discharge Plan: Inpatient Hospitalization
[2018-01-20] MEDS: lamoTRIgine TAB(*) 100 MG PO SCH (20:07)
[2018-01-21] MEDS: DULoxetine DR CAP* 60 MG CAP.DR PO SCH (08:21)
[2018-01-21] MEDS: lamoTRIgine TAB(*) 25 MG PO SCH ×2 (08:22→20:08)
[2018-01-21] MEDS: Lithium Carbonate ER* 450 MG TAB.ER PO SCH ×2 (08:22→20:08)
[2018-01-21] MEDS: CMCS: Vortioxetine (NF) 10 MG TAB (FORMERLY Brintellix) PO SCH (08:22)
[2018-01-21] MEDS: LORazepam TAB(*) 1 MG PO SCH ×2 (08:23→20:07)
--- NOTE | 2018-01-21 15:26 | PN ---
Subjective - Subjective Subjective: Psychiatric Attending Progress Note: Patient reports that he remains "flat and with very little motivation or ability to feel pleasure". He does say that the crisis of feeling desperate, hopeless and suicidal has remitted. We discussed how his depressive symptoms progressed during the past 6 months and impacted his family to point that asked him to leave and move in with parents. He was crying alot and this was upsetting his children. we further talked about goal of remission of symptoms. I expressed concern that we continue to be aggressive with medication given the severity of his illness and the risk for losing marriage and family from mental illness. Patient further talked of parents and his illness's effect on them as well. we discussed alternative to medication should medication be ineffective or only partiallly effective This would include ECT. inpatient ECT at [facility] versus outpatient ECT discussed. Patient not in favor of this at this point but would consider it if no response is seen from medication trials done on this admission. We have A family meeting set up for tomorrow with parents and Objective - Appearance Appearance: Well Developed/Nourished Dysmorphic Features: No Hygiene: Normal Grooming: Well Kept - Behavior Psychomotor Activities: Normal Exhibits Abnormal Movement: No - Attitude and Relatedness Attitude and Relatedness: Cooperative Eye Contact: Fair - Speech Quality: Unpressured Latencies: Normal Quantity: Appropriate - Mood Patient's Decription of Mood: "Anxious" - Affect Observed Affect: Depressed - constricted, flat Affect Consistent with: Dysphoria - Thought Process Patient's Thought Process: Coherent, Impoverished Thought Content: No Passive Wish, No Suicidal Planning, No Homicidal Ideation, No Paranoid Ideation - Sensorium Experiencing Hallucinations: No, Sensorium is Clear Type of Hallucinations: Visual: No, Auditory: No, Command: No - Level of Consciousness Level of Consciousness: Alert Orientation: Yes Intact, Yes Orientated to Time, Yes Orientated to Place, Yes Orientated to Person - Impulse Control Impulse Control: Intact - Insight and Judgement Insight and Judgement: Good - Group Participation Particating in Group Activities: Yes - Medication Management Medication Management Adherence: Yes Assessment - Assessment Inpatient DSM-V Dx: F31.4 Clinical Impression: bipolar disorder current episode depressed severe with agitated component Anxiety Disorder unspecified (atypical panic, rumination, perseveration) personality disorder unspecified (dependent, obsessive compulsive traits) Plan - Plan Treatment Plan: Plan: [place] 675 mg BID since yesterday ativan 2 mg BID and 2 mg additional prn (only using 2 mg twice daily) Change Lamictal to 50 mg QAM and 75 mg QHS on Sunday Discontinue Trintellix Cymbalta currently at 60 mg daily Consider adding Rexulti and Imipramine for augmentation of depression and to treat panic family meeting in am Medications: Current Medications Al Hydrox/Mg Hydrox/Simethicone (Maalox Plus*) 30 ml PO Q6H PRN PRN Reason: INDIGESTION Duloxetine HCl (Cymbalta Cap*) 60 mg PO DAILY [facility] Last Admin: 01/21/18 08:21 Dose: 60 mg Lamotrigine (Lamictal Tab(*)) 50 mg PO DAILY [facility] Last Admin: 01/21/18 08:22 Dose: 50 mg Lamotrigine (Lamictal Tab(*)) 75 mg PO BEDTIME [facility] Long Carbonate (Long Carbonate Er Tab*) 450 mg PO DAILY [facility] Last Admin: 01/21/18 08:22 Dose: 450 mg Long Carbonate (Long Carbonate Er Tab*) 675 mg PO BEDTIME [facility] Last Admin: 01/20/18 20:07 Dose: 675 mg Lorazepam (Ativan Tab(*)) 2 mg PO DAILY PRN PRN Reason: ANXIETY Last Admin: 01/19/18 13:53 Dose: 2 mg Lorazepam (Ativan Tab(*)) 2 mg PO BID@, [facility] Last Admin: 01/21/18 08:23 Dose: 2 mg Olanzapine (Zyprexa * Tab Odt) 5 mg PO BEDTIME PRN PRN Reason: agitation or insomnia
[2018-01-22] MEDS: LORazepam TAB(*) 1 MG PO SCH ×2 (08:26→20:10)
[2018-01-22] MEDS: DULoxetine DR CAP* 60 MG CAP.DR PO SCH (08:27)
[2018-01-22] MEDS: Lithium Carbonate ER* 450 MG TAB.ER PO SCH ×2 (08:27→20:10)
[2018-01-22] MEDS: lamoTRIgine TAB(*) 25 MG PO SCH ×2 (08:27→20:09)
--- NOTE | 2018-01-22 10:18 | PN ---
Subjective - Subjective Subjective: Psychiatric Attending Progress Note: Family Meeting: Dr. Wesley Yin, SHYANNE Edmonds, Patient, Patient's parents, Patient' s present at meeting Pertinent History related by Skyler's : After Skyler's first depression in 2004 he had complete remission and was euthymic. Children were born in 2007 and 2010 and Nathen bonded with both children, spent time with them, was reliable to watch them. In 2013 Nathen developed another severe depressive episode which necessitated three hospitalizations in close succession due to recurrent suicidal ideation and persistent depressive symptoms. Family and Nathen agree that he appeared "overmedicated" on prozac and seroquel combination. This was ultimately discontinued when he went to [facility] and he was started on Effexor with remission of dysphoria, amotivation, crying, severe panic and anxiety, isolation, loss of interest. Nathen's reluctance to more than one medication is a direct result of his fear of feeling like he did when he was taking prozac and serouquel. He remains fearful of taking antipsychotic medications because of the side effects he experienced with seroquel. Although his depressive symptoms lifted after release from [facility] in 2014, she reports he has not been the same since 2013. She states that Nathen showed increased goal directed activity since 2014 which was highly egocentric, often excluded family. 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 The amount of time he spent with his children has been much less than previous to 2013, he slept much less than usual, exhibited excessive and increased goal directed activities (hiking,working on his masters degree), was described as having very low frustration tolerance, and displayed irritability which previously had not been his baseline. Much more focused on his own needs rather than the needs of the family. During last 6 months things deteriorated further. skyler became inreasingly rageful and intensely angry to the point that he would become explosive in front of the children. never mean or abusive to them the anger was never over something the children did. It was always over becoming frustrated over something that he was doing that fell short of his expectations or dropping something by accident. He would begin screaming or cursing. This occurred for about a one month time. It go so bad that report was made to [facility] and Skyler had to take anger management classes. Ultimately she was asked him to leave and go live with his parents. subsequently, the intense rage went away and was never at that level again. However, he remained irritable, tearful, would isolate, was unavailable , couldnt go to work, was deeply internally preoccupied, sad, and motorically slowed. He would call stating he was agitated, suicidal and couldn't take it any more. Family would try and get him to go the hospital but he resisted for fear of being placed on medication that would cause him side effects and fearing that he would not get better with medicaiton anyway. Discussed obstacles to current treatment including resistance to medication. 's perspective very much not understanding of biological basis of depression. mother pretty much the same. mother told me that maybe he got this way because they kept him on Celexa all those years (was euthymic for 9 years on Celexa). didnt believe medication was the answer but that the symptoms represent a character fault that Skyler is masking with medication. biological basis of depression explained. Father understood my concern over Skyler's resistance to various medications which could petentially help. In particular the antipsychotic medication. FAther confronted son and asked if he would allow to switch antipsychotic medication for the Cymbalta which was what I initially wanted. skyler said no and would like to remain on current combination of lithium and cymbalta for another week to see how he is responding. MSE: flat affect, psychomotorically slow, tearful, paucity of speech and paucity of content of speech indecisive, anhedonic, dysphoric, k patient continues with delusion that the injury he sustained as a child caused his chronic depression. denies AH,VH, denies SI and HI at present time. 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 unspecified personality disorder Plan: continue current medication unchanged lithium carbonate 675 mg BID Cymbalta 60 mg qam Ativan 2 mg BID observe closely for remissio of symtoms Assessment - Assessment Inpatient DSM-V Dx: F31.4 Clinical Impression: bipolar disorder current episode depressed severe with agitated component Anxiety Disorder unspecified (atypical panic, rumination, perseveration) personality disorder unspecified (dependent, obsessive compulsive traits) Plan - Plan Treatment Plan: Plan: [place] 675 mg BID since yesterday ativan 2 mg BID and 2 mg additional prn (only using 2 mg twice daily) Change Lamictal to 50 mg QAM and 75 mg QHS on Sunday Discontinue Trintellix Cymbalta currently at 60 mg daily Consider adding Rexulti and Imipramine for augmentation of depression and to treat panic family meeting in am Medications: Current Medications Al Hydrox/Mg Hydrox/Simethicone (Maalox Plus*) 30 ml PO Q6H PRN PRN Reason: INDIGESTION Duloxetine HCl (Cymbalta Cap*) 60 mg PO DAILY [facility] Last Admin: 01/22/18 08:27 Dose: 60 mg Lamotrigine (Lamictal Tab(*)) 50 mg PO DAILY [facility] Last Admin: 01/22/18 08:27 Dose: 50 mg Lamotrigine (Lamictal Tab(*)) 75 mg PO BEDTIME [facility] Last Admin: 01/21/18 20:08 Dose: 75 mg [place] Carbonate ([place] Carbonate Er Tab*) 450 mg PO DAILY [facility] Last Admin: 01/22/18 08:27 Dose: 450 mg [place] Carbonate ([place] Carbonate Er Tab*) 675 mg PO BEDTIME [facility] Last Admin: 01/21/18 20:08 Dose: 675 mg Lorazepam (Ativan Tab(*)) 2 mg PO DAILY PRN PRN Reason: ANXIETY Last Admin: 01/19/18 13:53 Dose: 2 mg Lorazepam (Ativan Tab(*)) 2 mg PO BID@09,21 [facility] Last Admin: 01/22/18 08:26 Dose: 2 mg Olanzapine (Zyprexa * Tab Odt) 5 mg PO BEDTIME PRN PRN Reason: agitation or insomnia
[2018-01-23] MEDS: lamoTRIgine TAB(*) 25 MG PO SCH ×2 (08:16→20:13)
[2018-01-23] MEDS: LORazepam TAB(*) 1 MG PO SCH ×2 (08:16→20:18)
[2018-01-23] MEDS: Lithium Carbonate ER* 450 MG TAB.ER PO SCH ×2 (08:16→20:14)
[2018-01-23] MEDS: DULoxetine DR CAP* 60 MG CAP.DR PO SCH (08:16)
[2018-01-23] MEDS: Levothyroxine TAB* 25 MCG TAB PO SCH (10:48)
--- NOTE | 2018-01-23 11:59 | PN ---
Subjective - Subjective Subjective: Psychiatric Attending Progress Note: Met with patient x 60 minutes to reassess his mental status and to discuss yesterday's family meeting. Patient continues to have symptoms of severe depressin including amotivation, dysphoria, feeling of worthlessness, hopelessness. He is sleeping better getting 8 hoursper night. Although he attends some groups, he continues to retreat to his room and isolates for large blocks of time. socialization and interaction with other patients is sparse. Patient usually eats alone. patient denies any adverse side effects from medication. Mental status speech: decrased fluency and spontaneity. delayed response time. soft volume. slow rate psychomotor behavior: evidences moderate slowing in all gross motor movements no postural rigidity note, no shuffling gait, Mood: dysphoric affect: flat, decreased range, somber, low amplitude Thought process: goal directed, logical Thought content: no AH,VH. patient remains with severe anhedonia, abulia ( inabilty to initite purposeful activity), sense of hopelessness and helplessness, preoccupied with never getting better, worries about whether he will be able to return to work, whether he will be able to support his family , guilty ridden that is bearing the burden of caring for children. denies active suicidal thoughts but fearful that he could become this way again if depression doesn't lift. patient went into detail today about his preoccupation with accident which occurred when he was 13 which was mistakenly (in my opinion) diagnosed with obsessive compulsive disorder. patient was playing football. tackled and headbutted hard on his side. remembers feeling intense fear, feeling pain on right side, being unable to move his arm intially (feeling of paralysis). felt body integrity was compromised. injury never addressed acutely. brought home by mother. injury was highly traumatic experience, never processed with adult and never was reassured that his injuries were not permanent. over time developed loss of confidence, had psychosomatic symptoms including perception of right sided weakness and sensory changes on same side. developed belief that injury had resulted in neurological deficits which would explain his failure to excel in sports and which discouraged him from continuing on with his involvement in drumming. He reports that he has ruminated about this injury since age 13. total time spent weekly is 2 hours. no rituals. thoughts are egosyntonic. patient continues to believe that he has weakness on right side, despite having seen neurologist and being told that he has normal neurological examination. discussed adding abilify to augment antidepressant effect of other mediations and because abilify will acutely treat depression. and will likely decrease somatic symptom which is really a somatic delusion at this point. patient reluctant to add abiilfy due to experience here 4 years ago when he was put on prozac and seroquel andfelt "overmedicated". ultimately agreed and gave informed consent to add Abilify Impression: patient continues with severe bipolar depressive syndrome. SI has remitted since starting [place]. However patient remains profoundly depressed with psychomotor retardation, neurovegetative symptoms, obsessional preoccupation with childhood trauma, somatic delusions of right sided weakness. The aforementioned symtpoms combined with new understanding that patient has bipolar depression versus previously though unipolar depression significantly increase suicide risk. patient will need to show significant remission of mood symptoms. Plan; add abilify 2 mg and titrate to 5 mg tomorrow lithium level is 0.66 after two days of 675 mg BID. will repeat level in two days and titrate lithium further Duloxetine 60 mg qam ATivan 2 mg BID synthroid 25 mcg daily Assessment - Assessment Clinical Impression: bipolar disorder current episode depressed severe with obsessional features Anxiety Disorder unspecified (atypical panic, rumination, perseveration) unspecified trauma related disorder (traumatic childhood injury)
[2018-01-23] MEDS: ARIPiprazole TAB* 2 MG PO SCH (20:13)
[2018-01-24] MEDS: lamoTRIgine TAB(*) 25 MG PO SCH ×2 (08:17→20:07)
[2018-01-24] MEDS: DULoxetine DR CAP* 60 MG CAP.DR PO SCH (08:17)
[2018-01-24] MEDS: Levothyroxine TAB* 25 MCG TAB PO SCH (08:18)
[2018-01-24] MEDS: Lithium Carbonate ER* 450 MG TAB.ER PO SCH ×2 (08:18→20:09)
[2018-01-24] MEDS: LORazepam TAB(*) 1 MG PO SCH ×2 (08:21→20:10)
[2018-01-24] MEDS: ARIPiprazole TAB* 2 MG PO SCH (20:07)
[2018-01-25] MEDS: DULoxetine DR CAP* 60 MG CAP.DR PO SCH (08:57)
[2018-01-25] MEDS: lamoTRIgine TAB(*) 25 MG PO SCH ×2 (08:57→20:44)
[2018-01-25] MEDS: LORazepam TAB(*) 1 MG PO SCH ×2 (08:57→20:42)
[2018-01-25] MEDS: Levothyroxine TAB* 25 MCG TAB PO SCH (08:58)
[2018-01-25] MEDS: Lithium Carbonate ER* 450 MG TAB.ER PO SCH ×2 (08:58→20:43)
--- NOTE | 2018-01-25 11:04 | PN ---
Subjective - Subjective Subjective: Psychiatric Attending Progress Note feels like he has made progress/gains over past two days. reports motivation, energy, ability to engage, desire to initiate are returning. agreed to take synthroid yesterday after I explained reasoning behind starting low dose of synthroid. MSE: there is a definite improvement from yesterday to today in patients mental status (likely related to addition of abilify 2 mg). speech with increased spontaneity, fluency, amount mood: less dysphoric affect brighter, more animated. no longer dull or flat. patient is much more engaged and interactive. eye contact improved. psychomotor behavior not so slow. reaction time, relatedness much better today. TC: no SI. no mention of past accident ie. somatic delusions remitting. patient talked of discharge next week. He met with parents during visiting hours who will allow him to return to live with them on discharge insight improved. judgment intact/good Denies side effects from any of the meds no tremor, no frequency or dysuria, denies eps, dytonia, dry mouth, diarrhea, Impression: MDD recurrent severe which has begun to respond to multidrug regimen Plan: continue current medication regimen increase Abilify to 5 mg qhs lithium level over weekend. Assessment - Assessment Inpatient DSM-V Dx: F31.4 Clinical Impression: bipolar disorder current episode depressed severe with obsessional features Anxiety Disorder unspecified (atypical panic, rumination, perseveration) unspecified trauma related disorder (traumatic childhood injury) Plan - Plan Treatment Plan: Plan: [place] 675 mg BID since yesterday ativan 2 mg BID and 2 mg additional prn (only using 2 mg twice daily) Change Lamictal to 50 mg QAM and 75 mg QHS on Sunday Discontinue Trintellix Cymbalta currently at 60 mg daily Consider adding Rexulti and Imipramine for augmentation of depression and to treat panic family meeting in am Medications: Current Medications Al Hydrox/Mg Hydrox/Simethicone (Maalox Plus*) 30 ml PO Q6H PRN PRN Reason: INDIGESTION Aripiprazole (Abilify Tab*) 2 mg PO BEDTIME [facility] Last Admin: 01/24/18 20:07 Dose: 2 mg Duloxetine HCl (Cymbalta Cap*) 60 mg PO DAILY [facility] Last Admin: 01/25/18 08:57 Dose: 60 mg Lamotrigine (Lamictal Tab(*)) 50 mg PO DAILY [facility] Last Admin: 01/25/18 08:57 Dose: 50 mg Lamotrigine (Lamictal Tab(*)) 75 mg PO BEDTIME [facility] Last Admin: 01/24/18 20:07 Dose: 75 mg Levothyroxine Sodium (Synthroid Tab*) 25 mcg PO 0600 [facility] Last Admin: 01/25/18 08:58 Dose: 25 mcg [place] Carbonate ([place] Carbonate Er Tab*) 675 mg PO BEDTIME [facility] Last Admin: 01/24/18 20:09 Dose: 675 mg [place] Carbonate ([place] Carbonate Er Tab*) 675 mg PO DAILY [facility] Last Admin: 01/25/18 08:58 Dose: 675 mg Lorazepam (Ativan Tab(*)) 2 mg PO DAILY PRN PRN Reason: ANXIETY Last Admin: 01/19/18 13:53 Dose: 2 mg Lorazepam (Ativan Tab(*)) 2 mg PO BID@, [facility] Last Admin: 01/25/18 08:57 Dose: 2 mg Olanzapine (Zyprexa * Tab Odt) 5 mg PO BEDTIME PRN PRN Reason: agitation or insomnia
[2018-01-25] MEDS: ARIPiprazole TAB* 5 MG PO SCH (20:41)
[2018-01-26] MEDS: Levothyroxine TAB* 25 MCG TAB PO SCH (07:40)
[2018-01-26] MEDS: lamoTRIgine TAB(*) 25 MG PO SCH ×2 (08:35→20:25)
[2018-01-26] MEDS: DULoxetine DR CAP* 60 MG CAP.DR PO SCH (08:35)
[2018-01-26] MEDS: Lithium Carbonate ER* 450 MG TAB.ER PO SCH ×2 (08:36→20:26)
[2018-01-26] MEDS: LORazepam TAB(*) 1 MG PO SCH ×2 (08:39→20:27)
[2018-01-26] MEDS: ARIPiprazole TAB* 5 MG PO SCH (20:25)
[2018-01-27] MEDS: Levothyroxine TAB* 25 MCG TAB PO SCH (07:46)
[2018-01-27] MEDS: DULoxetine DR CAP* 60 MG CAP.DR PO SCH (09:06)
[2018-01-27] MEDS: Lithium Carbonate ER* 450 MG TAB.ER PO SCH ×2 (09:07→21:13)
[2018-01-27] MEDS: LORazepam TAB(*) 1 MG PO SCH ×2 (09:08→21:16)
[2018-01-27] MEDS: lamoTRIgine TAB(*) 25 MG PO SCH ×2 (09:08→21:13)
[2018-01-27] MEDS: ARIPiprazole TAB* 5 MG PO SCH (21:13)
[2018-01-28] MEDS: LORazepam TAB(*) 1 MG PO SCH ×2 (08:34→20:18)
[2018-01-28] MEDS: Lithium Carbonate ER* 450 MG TAB.ER PO SCH ×2 (08:35→20:19)
[2018-01-28] MEDS: Levothyroxine TAB* 25 MCG TAB PO SCH (08:35)
[2018-01-28] MEDS: DULoxetine DR CAP* 60 MG CAP.DR PO SCH (08:35)
[2018-01-28] MEDS: lamoTRIgine TAB(*) 25 MG PO SCH ×2 (08:35→20:18)
--- NOTE | 2018-01-28 13:07 | PN ---
Subjective - Subjective Subjective: Psychiatric Attending Progress Note: weekend staff reports/notes reviewed. patient received visitations from parents and over weekend. all agree that Devin will return to his parents home temporarily before transitioning back home with his and two sons. dysphoria less prominent and suicidal ideation remitted. continues to experience anhedonia, loss of interest, diminished initiative. perseveration over past accident has diminished over weekend even further then it was. appetite good. sleeping 8 to 9 hours through the night. [place] level = 0.72 (01/28/2018) Objective - Appearance Appearance: Well Developed/Nourished Dysmorphic Features: No Hygiene: Normal - fair hygiene Grooming: Fairly Well Kept - Behavior Psychomotor Activities: Abnormal-Decreased Exhibits Abnormal Movement: No - Attitude and Relatedness Attitude and Relatedness: fairly related Eye Contact: Fair - Speech Quality: Unpressured Latencies: Normal Quantity: Terse - Mood Patient's Decription of Mood: "Okay" - Affect Observed Affect: Constricted Affect Consistent with: Dysphoria - Thought Process Patient's Thought Process: Coherent Thought Content: No Passive Wish, No Suicidal Planning, No Homicidal Ideation, No Paranoid Ideation - Sensorium Experiencing Hallucinations: No, Sensorium is Clear Type of Hallucinations: Visual: No, Auditory: No, Command: No - Level of Consciousness Level of Consciousness: Alert Orientation: Yes Intact, Yes Orientated to Time, Yes Orientated to Place, Yes Orientated to Person - Impulse Control Impulse Control: Intact - Insight and Judgement Insight and Judgement: Good - Group Participation Particating in Group Activities: Yes - Medication Management Medication Management Adherence: Yes Assessment - Assessment Inpatient DSM-V Dx: F31.4 Clinical Impression: bipolar disorder current episode depressed severe with obsessional features Anxiety Disorder unspecified (atypical panic, rumination, perseveration) unspecified trauma related disorder (traumatic childhood injury) Plan - Plan Treatment Plan: Plan: Increase [place] to 675 mg QAM/900 mg QHS since yesterday ativan 2 mg BID and 2 mg additional prn (only using 2 mg twice daily) Lamictal to 50 mg QAM and 75 mg QHS on Sunday Cymbalta 60 mg daily Increase ABilify to 7.5 mg QHS synthroid 25 mcg daily patient continues to require medicaiton adjustment foir mood stabalization at this time on an iinpatient level of care. depressive symptoms have partially lifted but not adequate for discharge as patient is high risk for relapse and has made near lethal self injurious gestures and suicide attempts in past. Medications: Current Medications Al Hydrox/Mg Hydrox/Simethicone (Maalox Plus*) 30 ml PO Q6H PRN PRN Reason: INDIGESTION Aripiprazole (Abilify Tab*) 5 mg PO BEDTIME [facility] Last Admin: 01/27/18 21:13 Dose: 5 mg Duloxetine HCl (Cymbalta Cap*) 60 mg PO DAILY [facility] Last Admin: 01/28/18 08:35 Dose: 60 mg Lamotrigine (Lamictal Tab(*)) 50 mg PO DAILY [facility] Last Admin: 01/28/18 08:35 Dose: 50 mg Lamotrigine (Lamictal Tab(*)) 75 mg PO BEDTIME [facility] Last Admin: 01/27/18 21:13 Dose: 75 mg Levothyroxine Sodium (Synthroid Tab*) 25 mcg PO 0600 [facility] Last Admin: 01/28/18 08:35 Dose: 25 mcg [place] Carbonate ([place] Carbonate Er Tab*) 675 mg PO DAILY [facility] Last Admin: 01/28/18 08:35 Dose: 675 mg [place] Carbonate ([place] Carbonate Er Tab*) 900 mg PO BEDTIME [facility] Lorazepam (Ativan Tab(*)) 2 mg PO DAILY PRN PRN Reason: ANXIETY Last Admin: 01/19/18 13:53 Dose: 2 mg Lorazepam (Ativan Tab(*)) 2 mg PO BID@ [facility] Last Admin: 01/28/18 08:34 Dose: 2 mg Olanzapine (Zyprexa * Tab Odt) 5 mg PO BEDTIME PRN PRN Reason: agitation or insomnia
[2018-01-28] MEDS ORDERED: Bisacodyl EC TAB* 5 MG PO ONE (15:37)
[2018-01-28] MEDS ORDERED: Docusate CAP* 100 MG PO ONE (15:37)
[2018-01-28] MEDS: Polyethylene Glycol 3350* 17 GM PACKET PO SCH (15:45)
[2018-01-28] MEDS: Docusate CAP* 100 MG PO SCH (20:19)
[2018-01-28] MEDS: ARIPiprazole TAB* 5 MG PO SCH (20:19)
[2018-01-29] MEDS: Polyethylene Glycol 3350* 17 GM PACKET PO SCH (08:21)
[2018-01-29] MEDS: Levothyroxine TAB* 25 MCG TAB PO SCH (08:22)
[2018-01-29] MEDS: DULoxetine DR CAP* 60 MG CAP.DR PO SCH (08:22)
[2018-01-29] MEDS: Lithium Carbonate ER* 450 MG TAB.ER PO SCH ×2 (08:23→20:26)
[2018-01-29] MEDS: lamoTRIgine TAB(*) 25 MG PO SCH ×2 (08:23→20:25)
[2018-01-29] MEDS: Docusate CAP* 100 MG PO SCH ×2 (08:24→20:27)
[2018-01-29] MEDS: LORazepam TAB(*) 1 MG PO SCH ×2 (08:24→20:25)
--- NOTE | 2018-01-29 12:01 | PN ---
MHU: Group Therapy Note - Service Type Service Type: [id number] Group Psychotherapy - Cognitive Behavioral Group Therapy ( CBT):Patient was attentive and participatory in CBT programming this morning, and remained in good behavioral control. Patient expressed positive insights regarding relevant treatment interventions and goals.
[2018-01-29] MEDS: ARIPiprazole TAB* 5 MG PO SCH (20:27)
[2018-01-30] MEDS: lamoTRIgine TAB(*) 25 MG PO SCH ×2 (08:27→20:18)
[2018-01-30] MEDS: DULoxetine DR CAP* 60 MG CAP.DR PO SCH (08:27)
[2018-01-30] MEDS: Polyethylene Glycol 3350* 17 GM PACKET PO SCH (08:28)
[2018-01-30] MEDS: Levothyroxine TAB* 25 MCG TAB PO SCH (08:28)
[2018-01-30] MEDS: LORazepam TAB(*) 1 MG PO SCH ×2 (08:29→20:20)
[2018-01-30] MEDS: Docusate CAP* 100 MG PO SCH (08:30)
[2018-01-30] MEDS: Lithium Carbonate ER* 450 MG TAB.ER PO SCH ×2 (08:57→20:17)
--- NOTE | 2018-01-30 10:47 | PN ---
Subjective - Subjective Subjective: Psychiatric Attending Progress Note: Met with Jet and his yesterday X 1 hour. shared more history. Talked about her children, home schooling them. much more favorable and positive in her interaction with Daniel. 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 Discussion moved to Jet's accident on football field at age 13. both were able to come to understanding that accident was a psychical trauma which resulted in Jet having perception of being weaker on right side, causing him to develop an avoidance of sports and music due to his belief that he lacked the neurological capacity to excel. Nathen's persistent preoccupation with neurologic deficit (weakness) despite non focal physical exam and reassurance by several neurologists that he is neurologically intact was explored. Jet's symptoms were interpreted as psychosomatic in origin. Jet and his were both accepting of this interpretation. Jet's tendency to avoid playing guitar and singing as well as his reticence to take part in his own son's musical education was explored. progress made today with improved level of insight on patient's part. ABILIFY INCREASED YESTERDAY TO 7.5 MG LITHIUM LEVEL DRAWN EARLY THIS MORNING LITHIUM LEVEL IS .89 WHICH IS THERAPEUTIC I met with Jet today. His mood overall has improved. affect brighter. still somewhat flat with constricted affect. no SI, feels he has made progress and will be ready for discharge on Sunday. patient researched therapist on line He wants to do EMDR for trauma history He agrees to follow up with [facility] for medication follow up We will solidify appointment with new therapist prior to discharge Impression/plan Bipolar Disorder I current episode depressed severe in partial remission Conversion disorder with weakness other specified trauma disorder (sports injury age 13) continue current medication regimen discharge is set for sunday
[2018-01-30] MEDS: ARIPiprazole TAB* 5 MG PO SCH (20:18)
[2018-01-31] MEDS: Polyethylene Glycol 3350* 17 GM PACKET PO SCH (08:14)
[2018-01-31] MEDS: DULoxetine DR CAP* 60 MG CAP.DR PO SCH (08:15)
[2018-01-31] MEDS: LORazepam TAB(*) 1 MG PO SCH (08:15)
[2018-01-31] MEDS: Lithium Carbonate ER* 450 MG TAB.ER PO SCH (08:16)
[2018-01-31] MEDS: Levothyroxine TAB* 25 MCG TAB PO SCH (08:16)
[2018-01-31] MEDS: Docusate CAP* 100 MG PO SCH ×2 (08:17)
[2018-01-31 08:20] VITALS: BP 117/64
[2018-01-31] MEDS ORDERED: lamoTRIgine TAB(*) 25 MG PO SCH (09:00)
--- NOTE | 2018-01-31 13:16 | PN ---
MHU: Group Therapy Note - Service Type Service Type: [id number] Group Psychotherapy - Cognitive Behavioral Group Therapy ( CBT):Patient was attentive and participatory in CBT programming this morning, and remained in good behavioral control. Patient expressed positive insights regarding relevant treatment interventions and goals.
--- NOTE | 2018-01-31 14:58 | DS ---
Subjective - Subjective Subjective: DISCHARGE SUMMARY PATIENT: Jet Asher : 11/08/1974 AGE: 42 PROVIDER: Yonny Yin D.O. 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 He endorses 60 to 70 percent improvement overall. specifically he endorses brighter mood and affect, remission of all suicidal thoughts, improved motivation,greater energy, increased ability to experience pleasure, and greater initiative. He has set attainable short term goals including moving back in with his family, completing his masters degree, and following up with therapist and medication provider. He understands that it will take more time for him to make a more complete recovery and expects to return to work when his depressive symptoms have more fully remitted. speech is normal rate and volume. mood is improved but remains dysphoric. affect brighter more reactive but remains constricted Thought process organized, logical goal directed. Thought content denies AH,VH,SI,HI. no psychotic symptoms. patient continues with belief that he has neurological deficit ie. weakness on one side secondary top sports injury that he sustained at age 13. This does not cause severe impairment in his functioning and is a chronic conversion symptoms secondary to trauma. patient has no panic symptoms. He does have free floating anxiety which has decreased considerably with ativan. alert fully oriented. concentration, short term memory are intact. insight good judgment: intact DISCHARGE INSTRUCTIONS: A. MEDICATIONS: Wetmore CR 900 mg (two tabs) po QAM and 675 mg (one and one half tablets) po QHS Lamictal 75 mg po BID Duloxetine 60 mg po QAM Abilify 7.5 mg po QHS Ativan 2 mg po BID Synthroid 25 mcg po QAM B. DIET: Regular C. ACTIVITIES: TOLERATED NICOTINE REPLACEMENT THERAPY/SMOKING CESSATION REFERRAL NOT INDICATED PATIENT IS A NONSMOKER THERE ARE NO LABORATORY OR DIAGNOSTIC STUDIES PENDING AT THE TIME OF DISCHARGE. D. FOLLOW UP CARE: f/u with JIMI Rae on 02/06/2018 for medication management patient referred for therapy to [facility] patient to f/u with PCP by scheduling appointment within 2 weeks of discharge E. SUBSTANCE ABUSE FOLLOWUP: Not indicated ATTENDING PSYCHIATRIST HOSPITAL COURSE: PART A. JUSTIFICATION FOR ADMISSION: Patient brought tot he emergency room by his after revealing that he has been ruminating about committing suicide daily with a plan to hang himself. Patient has history of recurrent depression and two past suicide attempts. He requires imminent admission to an inpatient psychiatric unit for treatment 24 hour supervision as he is danger to self CHIEF COMPLAINT: "My depression started again in early august and its gotten worse to the point that I only feel dread, anxiety, loss of pleasure. I came to get help because I couldn't stop thinking about ending my life..." HISTORY OF THE PRESENT ILLNESS: Mr Asher is a 42 yo father of two children who is temporarily living with parents since leaving family home a month ago after he and his agreed that his young children would be better off if not exposed to his depression which included daily crying spells. Mr. Asher is a reliable historian. I also reviewed past records including [place] [facility] [place]. Mr Asher reports that he has been diagnosed with Recurrent Depression and OCD but he does not believe that the latter diagnosis is correct. His history is remarkable for being treated with antidepressant medication since 1996 when he first was treated for panic attacks in [facility]. He had his first hospitalization and first depressive episode in 2004 at the age of 30. He attempted suicide by Lexaaron simms at that time. He was treated successfully with Celexa up until 2013 when he had a recurrent episode. He was read[place] [facility] [place]. at that time patient's symptoms also included rumination over childhood football injury including the belief that this had led to right sided weakness, missed opportunities in his life. 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 patient refused antidepressants and was discharged on low dose depakote and valium for sleep. He was referred to residential OCD treatment program in [place] but left that program after one week. He was read[place] [facility] [place] for persistent severe depression after having placed a noose around his neck at his parents home and contemplating committing suicide. patient was discharged on prozac 80 mg and Seroquel 25 mg qam and 100 mg qhs after 2 week hospital stay. Patient was to follow up at [facility]. Patient represented to the ED two weeks after discharge in late September 2013 after having discharged a firearm at parents home in the context of ruminating about suicide. Of concern was that patients parents had participated in family meetings and had assured that their son had no access to firearms. No bed was available and patient was transferred and admitted to [facility]. He relates that he was started on Effexor titrated up to 112.75 mg (having been lowered from 150 mg which resulted in agitation). Since discharge from that hospital stay in Sep 2014 patient's effexor was renewed by his PCP. patient reports that he functioned very well, was able to work, and take care of his family, and was not experiencing anxiety or obsessional ruminations. He was compliant with his medication. 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 Patient reports that his anger caused him to excercise poor judgment on multiple occasions including sending emails to his boss which were uncharacteristically blunt and devaluing. He also reports excercising poor boundaries with a female colleague in terms of being emotionally too intimate and attempting to give her advise which he believes was crossing boundaries that he normally doesnt cross. complaint was filed against him that he was physically to close to her. patient denies problems with sleep or decreased need for sleep,hypersexuality, excessive spending, shoplifting, breaking the law, homicidal ideation, hallucinations, delusions, or paranoid ideation. In late July 2017 he reports that he began to feel sad and quite abruptly he had onset of another depressive episode characterized by anhedonia, low energy, increased fatigue, preoccupation with feelings of hopelessness, worthlessness, obsessing about high school football injury once again, incresed guilt and remorse about past mistakes or perceived transgressions., feelings of dread, intense fear and despair, decreaed appetite with 20 lb weight loss,inability to go to work, poor concentration and inability to continue with his graduate studies. Patient also reports crying daily with almost daily thoughts of suicide which he did not share with his therapist. patient saw is GP in early august who raised Effexor to 150 mg daily with no improvement. By end of August symptoms were so severe that he returned to his GP who added Wellbutrin. At that time pateint reports he had multiple somatic symptoms, felt physcially unwell and very agitated. He was referred to Brittany Rae NP for medication evaluation who he first saw in October 2017. He was tapered off Effexor XR and started on Trintellix which was raised a month ago to 20 mg daily. Lamictal was started a month ago and is currently at 100 mg daily. Patient reports no improvement from this regimen. He was also given Ativan 2 mg BID which has been helping with sleep and daytime agitation. In late October, he moved to parents home so crying wouldn't upset his children. He has been unable to work since late August 2017 and his job is being held for him. Patient reports main stressor is that he has been relying on his parents for financial and emotional support and he feels very guilty about this. also worries about strain on his who homeschools his two sons. PAST PSYCHIATRIC HISTORY: Patient is currently followed by Brittany Rae NP for medication management. He has been seeing a therapist twice weekly named Leonor Gage. past medication trials include: lexapro, Prozac, Paxil, Citalopram, Wellbutrin, Duloxetine, Venlafaxine, Klonopin Diazepam, Ambien, Trintellix, Lamictal, Ativan, Seroquel. reports cutting himself once as a way of punishing himself. SUBSTANCE ABUSE HISTORY: denies past or present abuse of alcohol or drugs. PAST MEDICAL HISTORY: reports that he sustained injury to neck and right side of his body while playing football in 8th grade. states he was "paralyzed" at the time. never came to medical attention. since that injury he has at various times attributed various somatic complaints as arising secondary to that accidental injury. CURRENT MEDICATIONS: Trintellix 20 mg qd Lamictal 100 mg qam Ativan 2 mg BID ALLERGIES: NKDA FAMILY PSYCHIATRIC HISTORY: Alcoholism on paternal side. denies any known family history of psychiatric illness or suicide. FAMILY/PSYCHOSOCIAL HISTORY: Born and raised in [place]. family was intact. father worked as electrical engineering intern. mother worked as teacher. He has one older brother. Did well in elementary school and middle school. denies disruptive behaviors, hyperactivity, attentional probelms in early or middle childhood. Grades began to slip in high school. reports he became more defiant and began displaying a temper which he had previously never had. "Its like I had a chip on my shoulder". binge drank from age 17 to 22. arrested twice for public intoxication. graduated high school and went to [employer] for college. Had "first mental health issue in college". developed panic attacks toward end of college and was treated with Paxil. Did well academically and graduated [employer] in 1998 (took him five years to graduate). 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 met and in 2005. 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 MENTAL STATUS EXAMINATION: Patient is a well developed and nourished tall 43 year old male. j Patient was fairly related and came into interview willingly. He was dressed casually and had adequate hygiene. patient has an anxious demeanor and was somewhat restless during the interview. He appeared to be in mild to moderate emotional distress. He frequently mentioned feeling very anxious, fearful and experiencing significant feeling of dread or worry that something terrible was going to happen. .Speech is normal rate and volume. normal fluency and spontaneity. patient articulate Mood: is dysphoric and very anxious. patient has mild psychomotor agitation. affect is constricted, sad, anxious, with low amplitude of response. Thought process is logical, goal directed and coherent. Thought content: patient endorses the following depressive symptoms: decreased concentration, dysphoric mood, crying jags, decreased energy, decreased motivation, loss of interest and decreased ability to experience pleasure,daily daily thougths of suicide with recent increase in his intention to carry it out by hanging himself this is second time that he informed family about the severity of his suicidal impulses because of his fear that he was going to act upon his impulses, decreased ability to fall asleep at times decreased appetite with 20 lb weight loss in past 4 weeks, feeling increased shame and regret for past events. denies auditory, visual hallucinations, Paranoia, delusions, denies homicidal thoughts. Cogntive: alert and fully oriented in all spheres. He reports diminished concentration past few months. attention, concentration and memory not tested due to time constraints. Insight and Judgment both good/intact. HOSPITAL COURSE : PART B PSYCHIATRIC TREATMENT RENDERED: Patient was admitted to [facility] on voluntary status. He was integrated into the structured milieu and afforded individual and group therapies lead by the units interdisciplinary team of mental health professionals. Mental status checks and vitals were closely monitored by 24 hour nursing staff with the assistance of mental health technical staff. Patient was evaluated and reassessed daily by a psychiatrist which included medication adjustment in order to ameliorate target symptoms and minimize potential side effects. Patient was also seen daily by a social science research assistant for therapy and discharge planning. Mr. Asher was respectful to stafff and other patients and actively participated in his treatment plan during his hospital stay. initially, he tended to be quiet and would only attend some of the groups. Further history gathering with patient revealed that prior to recurrence of depressive symptoms in September 2017, patient had a 6 month period characterized by increased goal directed activity, irritability, psychomotor acceleration, decreased need for sleep, increased distractability, poor impulse control, injudicious behaviors at work (overstepping boundaries with boss and female colleague). Patient was rediagnosed with Bipolar Disorder. His current depressive episode was therefore treated as bipolar depressive episode. Patient was initially resistant to medication changes. psychoeducation and family sessions resulted in increased acceptance of medication for treatment of patient's target symtpoms. Patient was started on Wetmore Carbonate CR which was titrated up to 1575 mg daily for maintenance treatment of bipolar disorder as well as to target suicidal ideation and depressive symptoms. She was cooperative with staff and participated in her own treatment plan. Patient's behavioral functioning characterized by negative symptoms including poor hygiene, low energy, low motivation, tendency to sleep late and take naps during the day, attendance at few groups with limited participation, intermittent paranoid statements but no evidence of arben paranoid or persecutory delusions, poverty of content of thought, no hallucinations Patient reported feeling "manic" which she described as too many thoughts, feeling so agitated and irritable that she feared losing control of herself, when agitated in such a manner patient describes that she fears she will hurt someone. she denied desire to hurt someone. She never had homicidal thoughts. she only feared that her agitation would cause her to become violent. . Patient had normal physical examination and was cleared medically for admission to psychiatry. Routine admission bloodwork was all within normal limits (see labs). Patient was restarted on blood pressure and antihypercholesterolemia medications. Perphenazine was discontinued and replaced with Invega in order to target negative psychotic symptoms as well as racing thoughts, and intermittent low frequency grandiose/paranoid thoughts. Patient requested to restart lithium as she had been on this medication for more than 10years and it was only since discontinuing her lithium last year that she has been ill enough to require psychiatric hospitalization. Patient was titrated up to 1125 mg daily and lithium levels were closely monitored as patient also takes Hydrochlorthiazide for hypertension and this agent is known to elevate lithium levels. Patient's steady state lithium level prior to discharge was 0.78. To address insomnia patient was started on Ambien which was titrated up to 10 mg nightly. Patient's sleep increased in duration but she continued to have mid AM awakenings. Over the course of the hospital stay patient's mental status improved. racing thoughts gradually remitted. Her thoughts became more organized and she had increased duration of sleep. There was no evidence of danger to self or others during the admission. Patient was enthusiastic about being discharged. She felt she was ready and verbalized that medication changes had been beneficial. She endorsed improved clarity of thought, decreased irritability, no further episodes of agitation, and she felt more hopeful. She was able to set short term goals to accomplish after discharge. These included focusing on herself rather than always offering to help others, reengaging in her mental health treatment on a regular basis by going to [facility] several days weekly, decreasing her use of the [employer] phone lines which is unhealthy as she is exposed to various forms of verbal and emotional abuse when she uses this service. Patient denied any adverse effects from any of the new medications she was prescribed. she agreed to follow up with Dr. Johnson for medication management on 02/07/2018 at 2:00 pm YONNY YIN DO Treatment Course & Assessment Clinical Course & Impression: bipolar disorder current episode depressed severe with obsessional features Anxiety Disorder unspecified (atypical panic, rumination, perseveration) unspecified trauma related disorder (traumatic childhood injury) Inpatient DSM-V Dx: F31.4 Discharge Planning - Discharge Planning Medications: Current Medications Al Hydrox/Mg Hydrox/Simethicone (Maalox Plus*) 30 ml PO Q6H PRN PRN Reason: INDIGESTION Aripiprazole (Abilify Tab*) 7.5 mg PO BEDTIME [facility] Last Admin: 01/30/18 20:18 Dose: 7.5 mg Docusate Sodium (Colace Cap*) 100 mg PO BID@ [facility] Last Admin: 01/31/18 08:17 Dose: 100 mg Duloxetine HCl (Cymbalta Cap*) 60 mg PO DAILY [facility] Last Admin: 01/31/18 08:15 Dose: 60 mg Lamotrigine (Lamictal Tab(*)) 75 mg PO BEDTIME [facility] Last Admin: 01/30/18 20:18 Dose: 75 mg Lamotrigine (Lamictal Tab(*)) 75 mg PO DAILY@ [facility] Last Admin: 01/31/18 08:17 Dose: 75 mg Levothyroxine Sodium (Synthroid Tab*) 25 mcg PO 0600 [facility] Last Admin: 01/31/18 08:16 Dose: 25 mcg Wetmore Carbonate (Wetmore Carbonate Er Tab*) 675 mg PO DAILY [facility] Last Admin: 01/31/18 08:16 Dose: 675 mg Wetmore Carbonate (Wetmore Carbonate Er Tab*) 900 mg PO BEDTIME [facility] Last Admin: 01/30/18 20:17 Dose: 900 mg Lorazepam (Ativan Tab(*)) 2 mg PO DAILY PRN PRN Reason: ANXIETY Last Admin: 01/19/18 13:53 Dose: 2 mg Lorazepam (Ativan Tab(*)) 2 mg PO BID@ [facility] Last Admin: 01/31/18 08:15 Dose: 2 mg Olanzapine (Zyprexa * Tab Odt) 5 mg PO BEDTIME PRN PRN Reason: agitation or insomnia Polyethylene Glycol/Electrolytes (Miralax*) 17 gm PO DAILY [facility] Last Admin: 01/31/18 08:14 Dose: 17 gm Discharge Planning: Prescriptions provided for discharge [] Yes [] No Follow up care details as per social work arrangements. Patient response to discharge plan: [] eager for discharge [] agreeable with discharge plan [] ambivalent about discharge [] disagrees with discharge today
== END 2018-01-31 16:10 | disposition home or self-care (01) | DRG 753 ==
LOC: ED 15:04 → BSU 01-15 13:33
PROVIDERS: ADMIT Psychiatry & Neurology Psychiatry; ATTEND Psychiatry & Neurology Psychiatry
PROC: GZHZZZZ Group Psychotherapy (ICD-10-PCS; principal; 2018-01-31)
DX: F31.4 Bipolar disorder, current episode depressed, severe, without psychotic features (principal); R45.851 Suicidal ideations; F44.89 Other dissociative and conversion disorders; R53.1 Weakness; F41.9 Anxiety disorder, unspecified; F42.9 Obsessive-compulsive disorder, unspecified; F43.9 Reaction to severe stress, unspecified; Z87.828 Personal history of other (healed) physical injury and trauma; Z91.5 Personal history of self-harm; Z81.1 Family history of alcohol abuse and dependence; Z83.3 Family history of diabetes mellitus
CPT/HCPCS: 36415; 80053; 80061; 80178; 80307; 80320; 80329; 81003; 81291; 82607; 82746; 83036; 83930; 84436; 84439; 84443; 84479; 84481; 85014; 85025; 86376; 90847; 90853; 99222; 99231; 99232; 99233; 99238; 99284; A9270-GY; G0480

== ENCOUNTER 2018-08-09 14:44 | Inpatient (IN) | payer OTHER ==
[2018-08-09] MEDS ORDERED: Nicotine Inhaler* 10 MG AMP INH PRN (15:46)
[2018-08-09] MEDS ORDERED: Mouth Piece, Nicotine* 1 EACH CARTRIDGE INH ONE (16:00)
[2018-08-09 16:11] LABS: ABS Basophils 0 10^3/ul (0-0.2); ABS Eosinophils 0.2 10^3/ul (0-0.6); ABS Lymphocytes 1.8 10^3/ul (1.0-4.8); ABS Monocytes 0.5 10^3/ul (0-0.8); ABS Neutrophils 3.7 10^3/ul (1.5-7.7); ABS Nucleated RBC 0 10^3/ul; Eosinophil % 2.6 %; Hematocrit 43 % (42-52); Hemoglobin 15.1 g/dl (14.0-18.0); Lymphocyte % 29.1 %; Mean Corpuscular HGB Conc 36 g/dl (31-36); Mean Corpuscular Hemoglobin 31 pg (27-31); Mean Corpuscular Volume 87 fL (80-94); Mean Platelet Volume 6.9 fL (7.4-10.4); Nucleated Red Blood Cells % 0.2; Platelet Count 194 10^3/ul (150-450); Red Blood Count 4.91 10^6/ul (4.00-5.40); Red Cell Distribution Width 14 % (10.5-15); White Blood Count 6.3 10^3/ul (3.5-10.8)
[2018-08-09 16:27] LABS: EGFR Non-African American 110.8 (>60)
--- NOTE | 2018-08-09 17:13 | ED ---
Substance Abuse/Use - HPI Summary HPI Summary: A 43 y/o male brought in by [facility] presents to [facility] with a chief complaint of a suicide attempt by intentional overdose at around 00:30 . The patient claims that he currently feels sad. He denies any thyroid or heart conditions, DM or HTN. He states that he has been sad for over one year. He denies HI, CP or SOB. Per mother and the patient has been sad and anxious for a very long time and has tried various drug therapies with no success. He is afraid of doing electric shock therapy, although he previously had that option in [place]. He has been using CBD oil and Ativan as needed. The patient took 50 2 mg Ativan. He recently spent 8 weeks in [place] at therapy. He has a FHx of depression. - History Of Current Complaint Chief Complaint: EDOverdose Stated Complaint: OVERDOSE Time Seen by Provider: 08/09/18 15:05 Hx Obtained From: Patient, Family/Chronometer Tester Overdose Characteristics: Oral Severity Initially: Severe Severity Currently: Severe Associated Signs And Symptoms: Other: - depressed Related Hx: Prior Psych Admission - Allergies/Home Medications Allergies/Adverse Reactions: Allergies Allergy/AdvReac Type Severity Reaction Status Date / Time No Known Allergies Allergy Verified 08/09/18 18:13 Home Medications: Home Medications LORazepam TAB(*) [Ativan 1 MG TAB (*)] 2 mg PO BID PRN MDD 4 mg 08/09/18 [ History Confirmed 08/09/18] PMH/Surg Hx/FS Hx/Imm Hx Endocrine/Hematology History: Denies: Hx Diabetes, Hx Thyroid Disease Cardiovascular History: Denies: Hx Hypertension Sensory History: Denies: Hx Contacts or Glasses, Hx Legally Blind, Hx Deafness, Hx Hearing Aid Opthamlomology History: Denies: Hx Contacts or Glasses, Hx Legally Blind Psychiatric History: Reports: Hx Anxiety, Hx Depression, Hx Inpatient Treatment , Hx Community Mental Health Tx Denies: Hx Eating Disorder, Hx of Violent Episodes Against Others - Immunization History Date of Tetanus Vaccine: Unknown Date of Influenza Vaccine: None Infectious Disease History: No Infectious Disease History: Denies: Traveled Outside the [place] in Last 30 Days - Family History Known Family History: Positive: Diabetes, Other - negative mental health, depression - Social History Alcohol Use: states that he last drank alcohol six months ago Substance Use Type: Reports: Other Substance Use Comment - Amount & Last Used: CBD oil Smoking Status (MU): Former Smoker Have You Smoked in the Last Year: Yes - reports he smokes "on occasion", identifying one cigarette "every so often" Review of Systems Negative: Chest Pain Negative: Shortness Of Breath Positive: Other - positive:SI negative: HI All Other Systems Reviewed And Are Negative: Yes Physical Exam - Summary Physical Exam Summary: GENERAL: Patient is a well-developed and nourished M who is lying comfortable in the stretcher. Patient is not in any acute respiratory distress. HEAD AND FACE: Normocephalic EYES: PERRLA, EOMI x 2. EARS: Hearing grossly intact. MOUTH: Oropharynx within normal limits. NECK: Supple, trachea is midline, no adenopathy, no JVD, no carotid bruit. CHEST: Symmetric, no tenderness at palpation LUNGS: Clear to auscultation bilaterally. No wheezing or crackles. CVS: Regular rate and rhythm, S1 and S2 present, no murmurs or gallops appreciated. ABDOMEN: Soft, non-tender. Bowel sounds are normal. No abdominal abnormal pulsations. EXTREMITIES: Full ROM in all major joints, no edema, no cyanosis or clubbing. NEURO: Alert and oriented x 3. No acute neurological deficits. Speech is normal and follows commands. SKIN: Dry and warm Psych: Very flat affect. SI no HI Triage Information Reviewed: Yes Vital Signs On Initial Exam: Initial Vitals Pulse Resp BP Pulse Ox 77 20 117/80 95 08/09/18 14:49 08/09/18 14:49 08/09/18 14:49 08/09/18 14:49 Vital Signs Reviewed: Yes Diagnostics - Vital Signs Vital Signs Temp Pulse Resp BP Pulse Ox 08/09/18 16:19 74 134/86 98 08/09/18 16:00 76 96 08/09/18 15:49 75 135/80 96 08/09/18 15:19 76 20 114/85 96 08/09/18 15:01 98.4 F 79 16 117/80 96 08/09/18 15:00 78 22 96 08/09/18 14:49 77 20 117/80 95 - Laboratory Lab Results: Lab Results 08/09/18 08/09/18 Range/Units 16:04 16:04 WBC 6.3 (3.5-10.8) 10^3/ul RBC 4.91 (4.00-5.40) 10^6/ul Hgb 15.1 (14.0-18.0) g/dl Hct 43 (42-52) % MCV 87 (80-94) fL MCH 31 (27-31) pg MCHC 36 (31-36) g/dl RDW 14 (10.5-15) % Plt Count 194 (150-450) 10^3/ul MPV 6.9 L (7.4-10.4) fL Neut % (Auto) 59.2 % Lymph % (Auto) 29.1 % [place] % (Auto) 8.7 % Eos % (Auto) 2.6 % Baso % (Auto) 0.4 % Absolute Neuts (auto) 3.7 (1.5-7.7) 10^3/ul Absolute Lymphs (auto) 1.8 (1.0-4.8) 10^3/ul Absolute Monos (auto) 0.5 (0-0.8) 10^3/ul Absolute Eos (auto) 0.2 (0-0.6) 10^3/ul Absolute Basos (auto) 0 (0-0.2) 10^3/ul Absolute Nucleated RBC 0 10^3/ul Nucleated RBC % 0.2 Sodium 138 (135-145) mmol/L Potassium 4.0 (3.5-5.0) mmol/L Chloride 107 (101-111) mmol/L Carbon Dioxide 23 (22-32) mmol/L Anion Gap 8 (2-11) mmol/L BUN 14 (6-24) mg/dL Creatinine 0.77 (0.67-1.17) mg/dL Est GFR ( Amer) 134.1 (>60) Est GFR (Non-Af Amer) 110.8 (>60) BUN/Creatinine Ratio 18.2 (8-20) Glucose 88 (70-100) mg/dL Calcium 9.7 (8.6-10.3) mg/dL Total Bilirubin 0.60 (0.2-1.0) mg/dL AST 16 (13-39) U/L ALT 23 (7-52) U/L Alkaline Phosphatase 88 (34-104) U/L Total Protein 6.8 (6.4-8.9) g/dL Albumin 4.5 (3.2-5.2) g/dL Globulin 2.3 (2-4) g/dL Albumin/Globulin Ratio 2.0 (1-3) TSH 1.05 (0.34-5.60) mcIU/mL Salicylates < 2.50 (<30) mg/dL Acetaminophen < 15 mcg/mL Serum Alcohol < 10 (<10) mg/dL Result Diagrams: 08/09/18 16:04 08/09/18 16:04 Lab Statement: Any lab studies that have been ordered have been reviewed, and results considered in the medical decision making process. - EKG 15:50 Cardiac Rate: NL - 75 bpm EKG Rhythm: Sinus Rhythm Summary of EKG Findings: CELIA Course/Dx - Course Course Of Treatment: A 43 y/o male brought in by [facility] ambulance presents to [facility] with a chief complaint of a suicide attempt by intentional overdose at around 00:30 08/09/18. Workup is remarkable with a very flat affect and SI no HI. EKG showed NSR at 75 bpm. Lab results obtained WNL. Dx: intentional overdose. Called poision control and they requested an additional 6 hours of observation. The patient will be admitted to Dr. Erickson.Case discussed with hospitalist. I discussed results with patient. The patient agrees with this plan. - Diagnoses Provider Diagnoses: Intentional lorazepam overdose - Physician Notifications Discussed Care Of Patient With: Vivienne Erickson Time Discussed With Above Provider: 17:00 Instructed by Provider To: Admit As Observation - Poson control was called requesting additional observation for 6 hours Discharge - Sign-Out/Discharge Documenting (check all that apply): Patient Departure - admit - Discharge Plan Condition: Fair Disposition: ADMITTED TO [facility] - Billing Disposition and Condition Condition: FAIR Disposition: Admitted to [facility] - Attestation Statements Document Initiated by Scribe: Yes Documenting Scribe: Cyrus Chau Provider For Whom [place] is Documenting (Include Credential): Emmanuel Cruz MD Scribe Attestation: Cyrus Gardiner, scribed for Emmanuel Cruz MD on 08/11/18 at 0232. Scribe Documentation Reviewed: Yes Provider Attestation: The documentation as recorded by the Cyrus khan accurately reflects the service I personally performed and the decisions made by me, Osbaldo Cruz MD Status of Scribe Document: Viewed
[2018-08-09] MEDS ORDERED: NS 0.9% 1000 ML* 1,000 ML IV ONE (17:40)
[2018-08-09 19:54] LABS: Urine Appearance Clear; Urine Blood Negative (Negative); Urine Color Yellow; Urine Ketones Negative (Negative); Urine Protein Negative (Negative); Urine Specific Gravity 1.012 (1.010-1.030); Urine Urobilinogen Negative (Negative)
[2018-08-09] MEDS: NS 0.9% 1000 ML* 1,000 ML IV SCH (20:16)
--- NOTE | 2018-08-10 04:38 | HP ---
HISTORY AND PHYSICAL: ADDENDUM AND CORRECTION: Please note that the medication list above mentioned was incorrect. It was taken from the medical records when the patient was still sedated. Currently, the patient is awake and he is able to tell me that he is taking Ativan 2 mg as needed only. He is not on any remaining medications including the Synthroid that he was taking in the past only when he was on lithium. [id number]/CPS #: [id number] MTDD
--- NOTE | 2018-08-10 05:19 | HP ---
MEDICATION CORRECTION ADDENDUM NOW INCLUDED ON THIS REPORT CC: Brittany Rae NP.* HISTORY AND PHYSICAL: DATE OF ADMISSION: 08/09/18 PRIMARY CARE PROVIDER: Brittany Rae NP and Dr. Otilio Malin. CHIEF COMPLAINT: Status post Ativan overdose. HISTORY OF PRESENT ILLNESS: Jet Asher is a 43-year-old male with history of problems with depression and suicidal ideations in the past, who presented to the hospital after reported 50 tablets of 2 mg dose of Ativan overdose. The patient also stated that with the tablets he drank a bottle of wine yesterday. The patient is fully conversational, alert and oriented, but his gait is still mildly unsteady. I recommended to place on overnight observation to the medical floor for Ativan overdose with a plan for psychiatric consult in the morning and physical therapy in the morning and likely transferred to psychiatric service tomorrow. PAST MEDICAL HISTORY: 1. History of major depression with suicidal ideations in the past, most recent hospitalizations for depression with suicidal ideation was in January 2018. 2. History of right shoulder chronic pain after surgery when playing football. MEDICATIONS AT HOME: Include: 1. Multivitamin 1 tablet daily. 2. Cymbalta 60 mg daily. 3. Abilify 5 mg daily. 4. Levothyroxine 25 mcg daily. 5. Lorazepam 2 mg b.i.d. p.r.n. ADDENDUM AND CORRECTION: Please note that the medication list above mentioned was incorrect. It was taken from the medical records when the patient was still sedated. Currently, the patient is awake and he is able to tell me that he is taking Ativan 2 mg as needed only. He is not on any remaining medications including the Synthroid that he was taking in the past only when he was on lithium. ALLERGIES: No known drug allergies. FAMILY HISTORY: No reported history of depression, cancer, and diabetes SOCIAL HISTORY: The patient denies any tobacco, alcohol or drug use. He is currently unemployed and lives with his parents. REVIEW OF SYSTEMS: The patient stated that she just got "unlucky." He complains of feeling depressed and not willing to live. He states that he tried to kill himself with the Ativan, but "unfortunately he did not succeed." He denies any GI symptoms specifically, no constipation, diarrhea, abdominal pain. He has no genitourinary complaints. He has chronic pain in the right shoulder that has not bothering him that much recently. All the remaining 12 systems were reviewed with the patient and were otherwise negative. PHYSICAL EXAMINATION GENERAL: The patient is a very pleasant 43-year-old male, who has a very flat affect. The patient is not in acute distress, alert, awake, and oriented x3, mildly lethargic. VITAL SIGNS: Blood pressure of 134/86, heart rate of 74, respiratory rate 20, oxygen saturation 98% on room air, temperature of 98.4. HEENT: Head atraumatic, normocephalic. Eyes: Pupils are equal and reactive to light and accommodation. Oropharynx is clear. Mucosa moist. NECK: Supple. No JVD. No bruit bilaterally. RESPIRATORY: Clear to auscultation bilaterally. CARDIOVASCULAR: Regular rhythm. No murmur. ABDOMEN: Soft, nontender. Bowel sounds are present in all 4 quadrants. EXTREMITIES: There is no edema. +2 pitting pedal edema. There is no clubbing and cyanosis. NEURO EVALUATION: Speech clear. Cranial nerves II through XII grossly intact. Motor strength is 5/5 bilaterally. The patient's gait is unsteady and he needs one person assist in walk or to be able to ambulate at this point. PSYCHIATRIC EVALUATION: Very flat affect. No evidence of anxiety. DIAGNOSTIC STUDIES/LAB DATA: White blood cell count of 6.2, hemoglobin of 15.1 , hematocrit of 43, platelets of 194. Sodium was 138, potassium 4.0, chloride 107, carbon dioxide 43, BUN 14, creatinine 0.77. Liver function is unremarkable, TSH of 1.05. Drug screen was negative for salicylates, acetaminophen and alcohol. ASSESSMENT AND PLAN: In regards to Ativan overdose. The Poison Control Center recommended for the patient to be observed medically until 8 p.m. today, which would be another hour and a half. Nevertheless, patient still has unsteady gait and requires physical therapy evaluation in order to be able to ambulate fully at our mental health unit. With that he is going to be placed on overnight observation on surveillance system monitor bed. I will place the patient on intravenous fluids. I will stop all of his medications apart from levothyroxine , which he is going to be continued until the psychiatrist sees him in the morning for evaluation. The patient also will be required to be on one-to-one observation due to suicidal ideation. For DVT prophylaxis, the patient is low risk and he is going to be continued with encouragement for ambulation. The patient's code status is full. His surrogate decision maker is mother. TIME SPENT: Approximately 55 minutes was spent on admission of this patient. More than half that time was spent [id number] with the patient in patient's evaluation and physical exam. [id number]/CPS #: [id number]/CPS #: [id number] JING
[2018-08-10] MEDS ORDERED: Levothyroxine TAB* 25 MCG TAB PO SCH (06:00)
[2018-08-10] MEDS: NS 0.9% 1000 ML* 1,000 ML IV SCH (06:37)
--- NOTE | 2018-08-10 19:00 | PN ---
Subjective Date of Service: 08/10/18 Interval History: Patient felt much more steady on his feet today. No cardiac events. Denies chest pain, abdominal pain, SOB. Able to give clear psychiatric history. Attests the Ativan OD occurred PM. He recently left the [facility] in [place] about 3 weeks ago 07/21. There he stopped his previous Cymbalta 60mg daily. [place] bad both pre and post this change. Attests he has 20 year history of medication trials which include zoloft, wellbutrin, effexor, paxil, depakote (4 years ago) , lithium (5months ago), clonopin. Says Dr. Yin was first/only person to think he may have bipolar and he disagrees with that assessment. Following with Brittany Rae for Psychiatry needs since October. Medically cleared for discharge around 1000am. Awaiting psychiatry consult. Objective Active Medications: Acetaminophen (Tylenol Tab*) 650 mg PO Q4H PRN PRN Reason: FEVER/PAIN Nicotine (Nicotine Inhaler*) 10 mg INH Q2H PRN PRN Reason: CRAVING Vital Signs - 8 hr 08/10/18 08/10/18 11:05 14:59 Temperature 98.2 F 97.9 F Pulse Rate 81 89 Respiratory 16 16 Rate Blood Pressure 131/69 121/71 (mmHg) O2 Sat by Pulse 98 97 Oximetry Oxygen Devices in Use Now: None Appearance: Anxious appearing. Eyes: No Scleral Icterus, PERRLA Ears/Nose/Mouth/Throat: NL Teeth, Lips, Gums, Mucous Membranes Moist Respiratory: Symmetrical Chest Expansion and Respiratory Effort, Clear to Auscultation Cardiovascular: NL Sounds; No Murmurs; No JVD, RRR Abdominal: NL Sounds; No Tenderness; No Distention, No Hepatosplenomegaly Extremities: No Edema Skin: No Rash or Ulcers Neurological: Alert and Oriented x 3 - Oriented to name, [facility], reason for admission. 2018. Initially mispoke and said May 11 instead of August 10, NL Sensation, NL Muscle Strength and Tone Nutrition: Taking PO's Result Diagrams: 08/09/18 16:04 08/09/18 16:04 Additional Lab and Data: Laboratory Results - last 24 hr 08/09/18 08/09/18 19:00 19:00 Urine Color Yellow Urine Appearance Clear Urine pH 6.0 Ur Specific [place] 1.012 Urine Protein Negative Urine Ketones Negative Urine Blood Negative Urine Nitrate Negative Urine Bilirubin Negative Urine Urobilinogen Negative Ur Leukocyte Esterase Negative Urine Glucose Negative Urine Opiates Screen None detected Ur Barbiturates Screen None detected Ur Phencyclidine Scrn None detected Ur Amphetamines Screen None detected U Benzodiazepines Scrn None detected Urine Cocaine Screen None detected U Cannabinoids Screen None detected Assess/Plan/Problems-Billing Assessment: 43 yo male long standing severe depression and anxiety, recently took off his cymbalta at [facility] in [place] 3 weeks prior presents with intentional OD with suicidal intent of 50 tabs of 2mg ativan. Medically cleared since 1000 08/10/18. Awaiting psychiatric evaluation continue 1:1 suicide precautions mental health gown nicotine inhaler prn. discontinue telemetry discontinue IVF regular diet dispo: medically discharged but no safe discharge plan without psychiatric evaluation. CODE: FULL
--- NOTE | 2018-08-11 18:50 | ADMNOTE ---
Identification - Identify Employment Status: Unemployed Hx Psychiatric Hospitalization: Yes Arrived to Hospital Via: Ambulance History - Objective HPI: 43 y/o WM with h/o mental illness and alcohol use d/o was admitted to medical floor following an intentional OD on 50 X 2mg Lorazepam and drinking a bottle of wine with an intention to end his life. He continues to be severely depressed and suicidal. At this time he barely can speak due to sedation. Denies hallucinations or delusions. Got off of all psychotropics except Ativan prescribed by his outpatient prescriber. Considering ECT if his Treatment Team agrees. Past Medical History: None Exam Appearance: Well Developed/Nourished, Healthy Appearing Hygiene: Normal Grooming: Disheveled Psychomotor Activities: Abnormal-Decreased Exhibits Abnormal Movement: No Attitude and Relatedness: Cooperative Eye Contact: Poor - Speech Quality: Unpressured Latencies: Long Quantity: Terse Patient's Decription of Mood: "Sad" Observed Affect: Depressed Affect Consistent with: Dysphoria Patient's Thought Process: Coherent, Goal Directed Thought Content: Yes Passive Wish, No Suicidal Planning, No Homicidal Ideation, No Paranoid Ideation Experiencing Hallucinations: No, Sensorium is Clear Type of Hallucinations: Visual: No, Auditory: No, Command: No Level of Consciousness: Lethargic Orientation: Yes Intact, Yes Orientated to Time, Yes Orientated to Place, Yes Orientated to Person Impulse Control: Impaired Insight and Judgement: Impaired Impression - Impression Merits Inpatient Hospitalization: Yes Plan - Treatment Plan Continued Medication Management: Consider Medication - Consider ECT Medications: Current Medications Acetaminophen (Tylenol Tab*) 650 mg PO Q4H PRN PRN Reason: FEVER/PAIN Nicotine (Nicotine Inhaler*) 10 mg INH Q2H PRN PRN Reason: CRAVING - Discharge Plan Discharge Plan: Drug/Alcohol Rehab
--- NOTE | 2018-08-12 01:19 | DS ---
DISCHARGE SUMMARY: DATE OF ADMISSION: 08/09/18 DATE OF DISCHARGE: 08/11/18 ADMITTING PROVIDER: Dr. Linda Butts. PRIMARY CARE PROVIDERS: Dr. Otilio Malin and Brittany Rae, OVERSEAMER ATTENDING PHYSICIAN ON DAY OF DISCHARGE: Dr. Yoshi Hutchins. CONSULTING PSYCHIATRIST: Will be Dr. Wetzel. CHIEF COMPLAINT: Severe depression with intentional overdose with suicidal intent. PRINCIPAL DIAGNOSES: 1. Longstanding severe depression. 2. Anxiety. 3. Possible bipolar disorder; suicidal attempt with overdose of 100 mg total Ativan with continued suicidal ideation. HISTORY OF PRESENT ILLNESS AND HOSPITAL COURSE: Jet Asher is a 43-year- old male with past medical history of severe longstanding depression, anxiety, possible bipolar disorder with multiple suicidal ideations in the past who attempted to kill himself taking 50 tablets of his 2 mg Ativan dose on the night of 08/08/18. He was found by his father approximately 12 hours later, was brought to [facility] [place]. Please see H and P of Dr. Linda Butts for full details. He also drank a bottle of wine that . He was referred to hospitalist service for admission and Poison Control was contacted who recommended continued observation. His gait was found to be unsteady initially in the emergency room. This improved, he was cleared by physical therapy. He had no events on telemetry overnight and this was discontinued. He was oriented x4, able to give a clear psychiatric history, and repeatedly said that he was displeased that his suicidal attempt had failed and reportedly asked this provider why it did not work and was asking how long the medication will last in the system. He has extensive longstanding depression history. He has been on medication trials of Lexapro, Prozac, Paxil, citalopram, Wellbutrin, duloxetine, venlafaxine, Klonopin, diazepam, Ambien, Trintellix, Lamictal, Ativan, Seroquel , lithium. Did report recently on duloxetine 60 mg a day and 3 weeks prior to admission had returned from a treatment center in [place] called the [facility]" where his duloxetine was stopped. He felt poorly both before and after discharge from that facility on 07/21/18. He had continued to follow with Brittany Rae and it was thought he had developed tolerance to the 1 mg of Ativan b.i.d. p.r.n. and just a day prior to his suicide attempt, has been prescribed 2 mg b.i.d. p.r.n. His last suicidal ideation had been in January when he had been admitted between 01/16/18 and and had been discharged with diagnosis of bipolar disorder with current episode severe depression and conversion disorder related to weakness related to a football injury at age 13. His discharge medications at that time had been lithium CR 900 mg (2 tabs) p.o. q.a.m. and 675 mg (one and one-half tabs) p.o. q.h.s., Lamictal 75 mg p.o. b.i.d., duloxetine 60 mg p.o. q.a.m., Abilify 7.5 mg q.h.s., Ativan 2 mg p.o. b.i.d., and Synthroid 25 mcg p.o. q.a.m. (at that time, his TSH had been 1.12, free T4 0.67 (low), and total T4 5.68 (low)). His admission meds at that time had been Trintellix 20 mg daily and Lamictal 100 mg q.a.m. and Ativan 2 mg b.i.d. The patient's additional workup included CBC, CMP, urinalysis and toxicology screen, was within normal limits. His TSH was 1.05. There are no medications on discharge other than nicotine inhaler. MEDICATIONS: Nicotine inhaler 10 mg inhaled q.2 hours p.r.n. DIET: Unchanged. No instructions. FOLLOWUP: He will be transferring to the behavioral services unit for further medication titration and treatment for his severe depression and/or bipolar disorder. He will be meeting with Dr. Wetzel later today. He will follow up with Dr. Malin and Brittany Rae after his discharge from behavioral services unit. TIME SPENT: On discharge 45 minutes. [id number]/[facility] #: [id number] [facility] MEDICAL CENTERRosemary
[2018-08-12] MEDS ORDERED: Acetaminophen TAB* 325 MG PO PRN (10:12)
[2018-08-12] MEDS ORDERED: Al Hydrox/Mg Hydrox/Simet LIQ* 30 ML UDC PO PRN (10:12)
[2018-08-12] MEDS ORDERED: Cefpodoxime (NF) 200 MG TAB PO SCH (14:00)
--- NOTE | 2018-08-12 14:52 | HP ---
H&P (Free Text) History and Physical: JUSTIFICATION FOR ADMISSION: Patient presented to emergency room with suicidal attempt of overdosing on Ativan with alcohol and worsening of depression. He requires inpatient psychiatric admission in order to provide treatment and stabilization as he is a danger to himself. CHIEF COMPLAINT: "I have no motivation do anything, I have tried many medications HISTORY OF THE PRESENT ILLNESS: Patient is a 43 y/o male, living with his parent, unemployed, with history of major depressive disorder. Patient was admitted to inpatient unit for worsening of depression, feelings of worthless, hopeless and helpless, decline in his functioning, hypersomnia, psychomotor retardation, anhedonia and was struggling with suicidal thoughts. 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 Patient woke up the next day still under influence of Ativan communicated his attempt and was brought to the hospital for further evaluation and treatment. Patient was observed and treated on the medical floor and then transferred. Patient has been compliant with his Ativan 2 mg BID but reports that he went off of all his other medications at a treatment center in [place] where he stayed for about 8 weeks somewhere in May/ June. Patient has multiple trial of medications in the past and reportedly has been unable to function and reports no improvement in his depression for some time and was thinking about ECT and do not want to try any medications. Patient reports no manic symptoms. Patient reports no psychotic symptoms. Patient continues to struggle with suicidal thoughts but is looking into ECT or TMS for his depression. Patient reports no homicidal ideation on the unit. Patient continued to exhibit behavior that is in control and is safe on all checks at the hospital . PAST PSYCHIATRIC HISTORY: Patient has history of multiple inpatient psychiatric hospitalization for depression and suicidal thoughts/attempts. Patient has history of outpatient psychiatric treatment for his depression with both therapy and medication management . Patients medications trials included lexapro, Prozac, Paxil, Citalopram, Wellbutrin, Duloxetine, Venlafaxine, Klonopin, Diazepam, Ambien, Trintellix, Lamictal, Ativan, Seroquel. Patient reported cutting himself once as a way of punishing himself. Patient has been in no inpatient or outpatient drug treatment. Patient has history of no homicidal threats, intent or attempt. Patient reports no history of aggressive and agitated behavior when decompensates. No access to firearm reported. Patient reports no manic or psychotic symptoms in the past. But during chart review patient had a period of manic like symptoms mentioned in Dr. Nobles note . 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 Patient reports that his anger caused him to excercise poor judgment on multiple occasions including sending emails to his boss which were uncharacteristically blunt and devaluing. He also reports excercising poor boundaries with a female colleague in terms of being emotionally too intimate and attempting to give her advise which he believes was crossing boundaries that he normally doesnt cross. Complaint was filed against him that he was physically to close to her. Patient denies problems with sleep or decreased need for sl eep,hypersexuality,excessive spending, shoplifting, breaking the law, homicidal ideation, hallucinations, delusions, or paranoid ideation. SUBSTANCE ABUSE HISTORY: Patient denies any current substance abuse. Patient reports history of abusing cannabis but years ago and no recent use. Patient reported use of alcohol on the day when he presented to ED. Patient overdosed on his Ativan with a bottle of wine in one evening. Patient reported last use of alcohol before this attempt was about a year ago. No inpatient or outpatient durg treatment reported. PAST MEDICAL HISTORY: No active medical problems, History of injury during football play when he was in 8th grade. ALLERGIES: NKA FAMILY PSYCHIATRIC HISTORY: Patient reports no family history of psychiatric illness or suicide. Reports alcoholism on paternal side. FAMILY/PSYCHOSOCIAL HISTORY: Patient currently lives with his parents. Patient is . Patient has children. Patient education level is graduation with masters in creative writing. Patient support system includes family/parents. Born and raised in [place]. family was intact. father worked as internal combustion engineer. mother worked as teacher. He has one older brother. Did well in elementary school and middle school. denies disruptive behaviors, hyperactivity, attentional problems in early or middle childhood. Grades began to slip in high school. reports he became more defiant and began displaying a temper which he had previously never had. "Its like I had a chip on my shoulder". binge drank from age 17 to 22. arrested twice for public intoxication. graduated high school and went to [employer] for college. Had "first mental healthissue in college". developed panic attacks toward end of college and was treated with Paxil. Did well academically and graduated [employer] in 1998 ( took him five years to graduate). 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 met and in 2005. 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 REVIEW OF SYSTEMS: Patients review of symptoms was negative for any physical complaint. Patient vitals and labs were reviewed and within normal limits. Patients Medical floor physical exam before transfer was reviewed which is grossly normal with no active medical problem. Appearance: Anxious appearing. Eyes: No Scleral Icterus, PERRLA Ears/Nose/Mouth/Throat: NL Teeth, Lips, Gums, Mucous Membranes Moist Respiratory: Symmetrical Chest Expansion and Respiratory Effort, Clear to Auscultation Cardiovascular: NL Sounds; No Murmurs; No JVD, RRR Abdominal: NL Sounds; No Tenderness; No Distention, No Hepatosplenomegaly Extremities: No Edema Skin: No Rash or Ulcers Neurological: Alert and Oriented x 3 - Oriented to name, [facility], reason for admission. 2018. Initially mispoke and said May 11 instead of August 10, NL Sensation, NL Muscle Strength and Tone MENTAL STATUS EXAMINATION: Appearance: 43 year old male, sparse hair, making poor eye contact disheveled, fair hygiene, poor grooming Behavior: cooperative Gait: normal but slow Abnormal motor activity: psychomotor retardation Speech: slow rate and rhythm, low tone and volume Mood: sad Affect: depressed, constrictive and not reactive Thought process: goal directed Thought Content: Suicidal/Homicidal ideation: suicidal thoughts with negative cognitive thinking, no hi Delusions: none Obsessions: none Phobia: none Perceptual disturbance: none Attention: limited Orientation: grossly intact Concentration: limited Memory: fair Insight: poor Judgment: improving given understanding and wanting to get ECT Impulse control: poor given recent attempt IMPRESSION: Patient with history of major depression. Patient currently admitted due to worsening of depression, feelings of worthless and hopeless and helpless with suicidal attempt. Patient has also struggled with multiple medication trials in the past with no to limited response. Patient is a danger to self if discharged hence will be stabilized on inpatient unit with medication adjustments and therapy. DIAGNOSIS: Major Depressive Disorder, recurrent, Severe without psychotic features PLAN: Admit to U on Q 15 min observation. Patient is full code. Patient is on involuntary admission status Integrate patient into the milieu Individual and group psychotherapy Social work consult for therapy and assist with transfer to [facility] for inpatient ECT treatment. Will hold family meeting with parents to increase Data base, if needed. Will obtain further collateral information from facility treatment at [place]. Patient did not agree for any medication trial at this time. Will start patient on Trazodone 50 mg PO at bedtime as needed for sleep. Hydroxyzine 5 0mg PO Q6HRS PRN fro anxiety. Will continue to monitor and f/u for improvement and side effects. Amy Richardson MD Attending Psychiatrist
[2018-08-12] MEDS ORDERED: traZODone TAB* 50 MG TAB PO PRN (18:07)
[2018-08-13] MEDS: Vitamin THERAPEUTIC TAB PO SCH (09:44)
--- NOTE | 2018-08-13 12:28 | PN ---
Subjective - Subjective Date of Service: 08/13/18 Service Type: 93716 Hosp care 15 min low complexity Subjective: Patient was seen by self, discussed with treatment team, chart was reviewed. Patient has not been acceptive of medications on the unit. Patient has been hopeless about response from mediations as he has been on multiple trials. Patient reports continued depression, suicidal thoughts, not intent or plan in the hospital. Patient is hoping to get his depression resolved with treatment of ECT. Patient was educated and encouraged to participate in therapy and milieu. patient has been isolative and secluded most of the time. But was able to come out of his room after motivation. Patient was given psyhoeducation about depression and treatment options other than medications. Patient sleeping has been fair and is in his bed most of the day. Patient eating has been fair. Patient has been cooperative with staff. Patient behavior has been in control. Patient mood was anxious and dysphoric and worries about if he is ever going to get better. Patient report he is distress about his feelings of depression especially around his and children and has been living at his parents since the beginning of this year to avoid that. Patient has been reporting no homicidal ideation. No psychotic symptoms of delusions or hallucinations. Objective - Appearance Appearance: Healthy Appearing Dysmorphic Features: No Hygiene: Normal Grooming: Fairly Well Kept - Behavior Psychomotor Activities: Abnormal-Decreased Exhibits Abnormal Movement: No - Attitude and Relatedness Attitude and Relatedness: Cooperative Eye Contact: Fair - Speech Quality: Unpressured Latencies: Long Quantity: Terse - Mood Patient's Decription of Mood: "Sad" - Affect Observed Affect: Depressed Affect Consistent with: Dysphoria - Thought Process Patient's Thought Process: Goal Directed Thought Content: Yes Passive Wish, No Suicidal Planning, No Homicidal Ideation, No Paranoid Ideation - Sensorium Experiencing Hallucinations: No, Sensorium is Clear Type of Hallucinations: Visual: No, Auditory: No, Command: No - Level of Consciousness Level of Consciousness: Alert Orientation: Yes Intact, Yes Orientated to Time - Impulse Control Impulse Control: Poor - given recent suicidal attempt - Insight and Judgement Insight and Judgement: Poor - given recent suicidal attempt buyt improving as willing to get ECT - Group Participation Particating in Group Activities: No - Medication Management Medication Management Adherence: No - patient not on any standing medications Assessment - Assessment Merits Inpatient Hospitalization: For Immediate Safety, For Stabilization, For Discharge Planning Inpatient DSM-V Dx: F33.9 MHU: Problem List - Patient Problems (1) Suicide attempt by substance overdose Current Visit: Yes Status: Acute Code(s): T65.92XA - TOXIC EFFECT OF UNSP SUBSTANCE, INTENTIONAL SELF-HARM, INIT SNOMED Code(s): 49134079 (2) Anxiety disorder, unspecified Current Visit: No Status: Acute Code(s): F41.9 - ANXIETY DISORDER, UNSPECIFIED SNOMED Code(s): 417274882 (3) Major depressive disorder, severe Current Visit: No Status: Acute Priority: High Onset Date: 07/16/14 Code (s): F32.2 - MAJOR DEPRESSV DISORD, SINGLE EPSD, SEV W/O PSYCH FEATURES SNOMED Code(s): 963446135 Plan - Plan Treatment Plan: Name: SHASHA GRAYSON Birthdate: 1975 [id number] - Patient continues to be hospitalized due to recent suicidal attempt, depression, anxiety and negative cognition awaiting transfer to [place] for ECT treatment. - Patient's as needed medications were continued for anxiety and benzo withdrawal and sleep. - Patient will be monitored for improvement and side effects. Risk and benefits were discussed. - Patient was encouraged to continue his participation in the milieu, group and individual therapy. Medications: Current Medications Acetaminophen (Tylenol Tab*) 650 mg PO Q4H PRN PRN Reason: FEVER/PAIN Al Hydrox/Mg Hydrox/Simethicone (Maalox Plus*) 30 ml PO Q4H PRN PRN Reason: INDIGESTION Lorazepam (Ativan Tab(*)) 2 mg PO Q6H PRN PRN Reason: ANXIETY/BENZO WITHDRAWAL Multivitamins (Theragran Tab*) 1 tab PO DAILY IRENE Last Admin: 08/13/18 09:44 Dose: Not Given Nicotine (Nicotine Inhaler*) 10 mg INH Q2H PRN PRN Reason: CRAVING Trazodone HCl (Desyrel Tab*) 50 mg PO BEDTIME PRN PRN Reason: SLEEP
[2018-08-14] MEDS: LORazepam TAB(*) 1 MG PO PRN ×2 (04:03→12:26)
--- NOTE | 2018-08-14 11:33 | PN ---
Subjective - Subjective Date of Service: 08/14/18 Service Type: [id number] Hosp care 15 min low complexity Subjective: Patient was seen by self, discussed with treatment team, chart was reviewed. Patient has not been acceptive of medications on the unit. Patient has been hoping that ECT will help with his severed depressive symptoms. Patient reports continued depression, suicidal thoughts, was worried about chcf sequela from recent attempt. Patient reports no current suicidal intent or plan in the hospital. Patient has been doing somewhat better in attending groups. Patient has been less isolative and secluded. Patient sleeping was disturbed last night with intense anxiety and took Ativan to resolve that. Patient eating has been fair. Patient has been cooperative with staff. Patient behavior has been in control. Patient mood was anxious and dysphoric and worries about if he is ever going to get better. P Patient has been reporting no homicidal ideation. No psychotic symptoms of delusions or hallucinations. Objective - Appearance Appearance: Healthy Appearing Dysmorphic Features: No Hygiene: Normal Grooming: Fairly Well Kept - Behavior Psychomotor Activities: Abnormal-Decreased Exhibits Abnormal Movement: No - Attitude and Relatedness Attitude and Relatedness: Cooperative Eye Contact: Fair - Speech Quality: Unpressured Latencies: Normal Quantity: Terse - Mood Patient's Decription of Mood: "Anxious" - Affect Observed Affect: Tense Affect Consistent with: Dysphoria - Thought Process Patient's Thought Process: Goal Directed Thought Content: Yes Passive Wish, No Suicidal Planning, No Homicidal Ideation, No Paranoid Ideation - Sensorium Experiencing Hallucinations: No, Sensorium is Clear Type of Hallucinations: Visual: No, Auditory: No, Command: No - Level of Consciousness Level of Consciousness: Alert Orientation: Yes Intact, Yes Orientated to Time, Yes Orientated to Place, Yes Orientated to Person - Impulse Control Impulse Control: Poor - Insight and Judgement Insight and Judgement: Poor - Medication Management Medication Management Adherence: Yes Assessment - Assessment Merits Inpatient Hospitalization: For Immediate Safety, For Stabilization, For Discharge Planning Inpatient DSM-V Dx: F33.9 Clinical Impression: Patient with history of major depression. Patient currently admitted due to worsening of depression, feelings of worthless and hopeless and helpless with suicidal attempt. Patient has also struggled with multiple medication trials in the past with no to limited response. Patient is a danger to self if discharged hence will be stabilized on inpatient unit with medication adjustments and therapy. MHU: Problem List - Patient Problems (1) Suicide attempt by substance overdose Current Visit: Yes Status: Acute Code(s): T65.92XA - TOXIC EFFECT OF UNSP SUBSTANCE, INTENTIONAL SELF-HARM, INIT SNOMED Code(s): 26585333 (2) Anxiety disorder, unspecified Current Visit: No Status: Acute Code(s): F41.9 - ANXIETY DISORDER, UNSPECIFIED SNOMED Code(s): 734471610 (3) Major depressive disorder, severe Current Visit: No Status: Acute Priority: High Onset Date: 07/16/14 Code (s): F32.2 - MAJOR DEPRESSV DISORD, SINGLE EPSD, SEV W/O PSYCH FEATURES SNOMED Code(s): 069264550 Plan - Plan Treatment Plan: Name: SHASHA GRAYSON Birthdate: 1975 [id number] - Patient continues to be hospitalized due to recent suicidal attempt, depression, anxiety and negative cognition awaiting transfer to [place] for ECT treatment. - Patient's as needed medications were continued Ativan for anxiety and benzo withdrawal and Trazodone for sleep. - Patient will be monitored for improvement and side effects. Risk and benefits were discussed. - Patient was encouraged to continue his participation in the milieu, group and individual therapy. Medications: Current Medications Acetaminophen (Tylenol Tab*) 650 mg PO Q4H PRN PRN Reason: FEVER/PAIN Al Hydrox/Mg Hydrox/Simethicone (Maalox Plus*) 30 ml PO Q4H PRN PRN Reason: INDIGESTION Lorazepam (Ativan Tab(*)) 2 mg PO Q6H PRN PRN Reason: ANXIETY/BENZO WITHDRAWAL Last Admin: 08/14/18 04:03 Dose: 2 mg Multivitamins (Theragran Tab*) 1 tab PO DAILY IRENE Last Admin: 08/13/18 09:44 Dose: Not Given Nicotine (Nicotine Inhaler*) 10 mg INH Q2H PRN PRN Reason: CRAVING Trazodone HCl (Desyrel Tab*) 50 mg PO BEDTIME PRN PRN Reason: SLEEP
[2018-08-14] MEDS: Vitamin THERAPEUTIC TAB PO SCH (11:52)
[2018-08-15] MEDS: Vitamin THERAPEUTIC TAB PO SCH (10:10)
--- NOTE | 2018-08-15 12:48 | PN ---
Subjective - Subjective Date of Service: 08/15/18 Service Type: [id number] Hosp care 15 min low complexity Subjective: Patient was seen by self, discussed with treatment team, chart was reviewed. Patient continues to be not been acceptive of medications on the unit. Patient has been hoping that ECT will help with his severed depressive symptoms. Patient reports continued depression with minimal improvement and participating in some groups and milieu, suicidal thoughts, negative cognition. Patient reports no current suicidal intent or plan in the hospital. Patient has been less isolative and secluded. Patient sleeping was better last night. Patient eating has been fair. Patient has been cooperative with staff. Patient behavior has been in control. Patient mood was anxious and dysphoric and worries about his future and thinks his problems to be big. Patient has been reporting no homicidal ideation. No psychotic symptoms of delusions or hallucinations. Patient has been safe on all checks and requesting for observation level to be switched to q30 minutes. Objective - Appearance Appearance: Healthy Appearing Dysmorphic Features: No Hygiene: Normal Grooming: Fairly Well Kept - Behavior Psychomotor Activities: Abnormal-Decreased - Attitude and Relatedness Attitude and Relatedness: Cooperative Eye Contact: Fair - Speech Quality: Unpressured Latencies: Normal Quantity: Terse - Mood Patient's Decription of Mood: "Anxious" - Affect Observed Affect: Constricted Affect Consistent with: Dysphoria - Thought Process Patient's Thought Process: Goal Directed Thought Content: Yes Passive Wish, No Suicidal Planning, No Homicidal Ideation, No Paranoid Ideation - Sensorium Experiencing Hallucinations: No, Sensorium is Clear Type of Hallucinations: Visual: No, Auditory: No, Command: No - Level of Consciousness Level of Consciousness: Alert Orientation: Yes Intact, Yes Orientated to Time, Yes Orientated to Place, Yes Orientated to Person - Impulse Control Impulse Control: Poor - as per recent evidence but improving - Insight and Judgement Insight and Judgement: Poor - as per recent evidence but improving - Group Participation Particating in Group Activities: Yes - Medication Management Medication Management Adherence: Yes - but improving even though refusing any medication trial but accepting ECT treatment Assessment - Assessment Merits Inpatient Hospitalization: For Immediate Safety, For Stabilization, For Discharge Planning Inpatient DSM-V Dx: F33.9 Clinical Impression: Patient with history of major depression. Patient currently admitted due to worsening of depression, feelings of worthless and hopeless and helpless with suicidal attempt. Patient has also struggled with multiple medication trials in the past with no to limited response. Patient is a danger to self if discharged hence will be stabilized on inpatient unit with medication adjustments and therapy. MHU: Problem List - Patient Problems (1) Suicide attempt by substance overdose Current Visit: Yes Status: Acute Code(s): T65.92XA - TOXIC EFFECT OF UNSP SUBSTANCE, INTENTIONAL SELF-HARM, INIT SNOMED Code(s): 74803107 (2) Anxiety disorder, unspecified Current Visit: No Status: Acute Code(s): F41.9 - ANXIETY DISORDER, UNSPECIFIED SNOMED Code(s): 697445374 (3) Major depressive disorder, severe Current Visit: No Status: Acute Priority: High Onset Date: 07/16/14 Code (s): F32.2 - MAJOR DEPRESSV DISORD, SINGLE EPSD, SEV W/O PSYCH FEATURES SNOMED Code(s): 925511809 Plan - Plan Treatment Plan: Name: SHASHA GRAYSON Birthdate: 1975 [id number] - Patient continues to be hospitalized due to recent suicidal attempt, depression, anxiety and negative cognition awaiting transfer to [place] for ECT treatment. - Patient's as needed medications were continued Ativan for anxiety and Trazodone for sleep. - Patient will be monitored for improvement and side effects. Risk and benefits were discussed. - Patient was encouraged to continue his participation in the milieu, group and individual therapy. Medications: Current Medications Acetaminophen (Tylenol Tab*) 650 mg PO Q4H PRN PRN Reason: FEVER/PAIN Al Hydrox/Mg Hydrox/Simethicone (Maalox Plus*) 30 ml PO Q4H PRN PRN Reason: INDIGESTION Lorazepam (Ativan Tab(*)) 2 mg PO Q6H PRN PRN Reason: ANXIETY/BENZO WITHDRAWAL Last Admin: 08/14/18 12:26 Dose: 2 mg Multivitamins (Theragran Tab*) 1 tab PO DAILY IRENE Last Admin: 08/15/18 10:10 Dose: Not Given Nicotine (Nicotine Inhaler*) 10 mg INH Q2H PRN PRN Reason: CRAVING Trazodone HCl (Desyrel Tab*) 50 mg PO BEDTIME PRN PRN Reason: SLEEP Last Admin: 08/14/18 20:48 Dose: 50 mg
[2018-08-15] MEDS: LORazepam TAB(*) 1 MG PO PRN (13:19)
[2018-08-16] MEDS: Vitamin THERAPEUTIC TAB PO SCH (09:51)
--- NOTE | 2018-08-16 11:36 | PN ---
Subjective - Subjective Date of Service: 08/16/18 Service Type: 13339 Hosp care 15 min low complexity Subjective: Patient was seen by self, discussed with treatment team, chart was reviewed. Patient continues to have catastrophic thinking and feeling that ativan makes it worst when effects wears off. Patient is hopeful about ECT that will help with his severe depressive symptoms. Patient reported continued depression with minimal improvement and is participating in some groups and milieu, suicidal thoughts, negative cognition. Patient reports no current suicidal intent or plan in the hospital. Patient has been isolative and secluded but less than initial days of hospitalization. Patient sleeping was disturbed last night. Patient reports that he doesn't respond to trazodone for sleep. Patient eating has been fair. Patient has been cooperative with staff. Patient behavior has been in control. Patient mood was anxious and dysphoric and worries about every thing. Patient was working to find a root cause to his depression but has been unable to find any specific cause. Patient has been reporting no homicidal ideation. No psychotic symptoms of delusions or hallucinations. Patient has been safe on all checks and requesting for observation level to be switched to q30 minutes and provide comfort room and computer privileges. Objective - Appearance Appearance: Healthy Appearing Dysmorphic Features: No Hygiene: Normal Grooming: Well Kept - Behavior Psychomotor Activities: Abnormal-Decreased Exhibits Abnormal Movement: No - Attitude and Relatedness Attitude and Relatedness: Cooperative Eye Contact: Poor - Speech Quality: Unpressured Latencies: Normal Quantity: Terse - Mood Patient's Decription of Mood: "Anxious" - Affect Observed Affect: Constricted Affect Consistent with: Dysphoria - Thought Process Patient's Thought Process: Goal Directed Thought Content: No Passive Wish, No Suicidal Planning, No Homicidal Ideation, No Paranoid Ideation - Sensorium Experiencing Hallucinations: No, Sensorium is Clear Type of Hallucinations: Visual: No, Auditory: No, Command: No - Level of Consciousness Level of Consciousness: Alert Orientation: No Intact, No Orientated to Time, No Orientated to Place, No Orientated to Person - Impulse Control Impulse Control: Intact - Insight and Judgement Insight and Judgement: Fair - Group Participation Particating in Group Activities: Yes - Medication Management Medication Management Adherence: Yes Assessment - Assessment Merits Inpatient Hospitalization: For Immediate Safety, For Stabilization, For Discharge Planning Inpatient DSM-V Dx: F33.9 Clinical Impression: Patient with history of major depression. Patient currently admitted due to worsening of depression, feelings of worthless and hopeless and helpless with suicidal attempt. Patient has also struggled with multiple medication trials in the past with no to limited response. Patient is a danger to self if discharged hence will be stabilized on inpatient unit with medication adjustments and therapy. MHU: Problem List - Patient Problems (1) Suicide attempt by substance overdose Current Visit: Yes Status: Acute Code(s): T65.92XA - TOXIC EFFECT OF UNSP SUBSTANCE, INTENTIONAL SELF-HARM, INIT SNOMED Code(s): 65823863 (2) Anxiety disorder, unspecified Current Visit: No Status: Acute Code(s): F41.9 - ANXIETY DISORDER, UNSPECIFIED SNOMED Code(s): 131039011 (3) Major depressive disorder, severe Current Visit: No Status: Acute Priority: High Onset Date: 07/16/14 Code (s): F32.2 - MAJOR DEPRESSV DISORD, SINGLE EPSD, SEV W/O PSYCH FEATURES SNOMED Code(s): 827730129 Plan - Plan Treatment Plan: Name: SHASHA GRAYSON Birthdate: 1975 [id number] - Patient continues to be hospitalized due to recent suicidal attempt, depression, anxiety and negative cognition awaiting transfer to [place] for ECT treatment. - Patient's as needed medications were switched from Ativan to Hydroxyzine 100 mg PO Q8hrs for anxiety and Trazodone to Remeron for sleep. - Patient will be monitored for improvement and side effects. Risk and benefits were discussed. - Patient was encouraged to continue his participation in the milieu, group and individual therapy. Medications: Current Medications Acetaminophen (Tylenol Tab*) 650 mg PO Q4H PRN PRN Reason: FEVER/PAIN Al Hydrox/Mg Hydrox/Simethicone (Maalox Plus*) 30 ml PO Q4H PRN PRN Reason: INDIGESTION Lorazepam (Ativan Tab(*)) 2 mg PO Q6H PRN PRN Reason: ANXIETY/BENZO WITHDRAWAL Last Admin: 08/15/18 13:19 Dose: 2 mg Multivitamins (Theragran Tab*) 1 tab PO DAILY IRENE Last Admin: 08/16/18 09:51 Dose: Not Given Nicotine (Nicotine Inhaler*) 10 mg INH Q2H PRN PRN Reason: CRAVING Trazodone HCl (Desyrel Tab*) 50 mg PO BEDTIME PRN PRN Reason: SLEEP Last Admin: 08/14/18 20:48 Dose: 50 mg
[2018-08-16] MEDS: hydrOXYzine HCL TAB* 50 MG PO PRN (11:59)
[2018-08-16] MEDS: Acetaminophen TAB* 325 MG PO PRN (17:08)
[2018-08-17] MEDS: Mirtazapine TAB* 15 MG PO PRN ×2 (02:43→20:44)
[2018-08-17] MEDS: Vitamin THERAPEUTIC TAB PO SCH (08:51)
[2018-08-17] MEDS: hydrOXYzine HCL TAB* 50 MG PO PRN ×2 (09:05→19:25)
[2018-08-17] MEDS: Acetaminophen TAB* 325 MG PO PRN (10:54)
[2018-08-17] MEDS ORDERED: traZODone TAB* 50 MG TAB ONE (21:21)
[2018-08-17] MEDS ORDERED: traZODone TAB* 50 MG TAB PO ONE (21:25)
[2018-08-18] MEDS: Acetaminophen TAB* 325 MG PO PRN ×4 (00:50→22:25)
[2018-08-18] MEDS: Vitamin THERAPEUTIC TAB PO SCH (08:28)
[2018-08-18] MEDS ORDERED: Magnesium Hydroxide LIQ* 30 ML UDC PO ONE (14:00)
--- NOTE | 2018-08-18 21:30 | PN ---
Subjective - Subjective Date of Service: 08/18/18 Subjective: Patient found in his room, reading, he continues to endorse high level of distress with depressed mood, high anxiety, continued poor sleep and passive wish. He denies active suicidal ideation and contracts for safety. He asks pertinent questions about ECT and he is receptive to support and psycho- education. Per staff, he has been mostly seclusive to his room. Objective - Appearance Appearance: Healthy Appearing Dysmorphic Features: No Hygiene: Normal Grooming: Well Kept - Behavior Psychomotor Activities: Normal Exhibits Abnormal Movement: No - Attitude and Relatedness Attitude and Relatedness: Cooperative Eye Contact: Fair - Speech Quality: Unpressured Latencies: Normal Quantity: Appropriate - Mood Patient's Decription of Mood: "Sad" - Affect Observed Affect: Constricted Affect Consistent with: Dysphoria - Thought Process Patient's Thought Process: Coherent, Goal Directed Thought Content: Yes Passive Wish, No Suicidal Planning, No Homicidal Ideation, No Paranoid Ideation - Sensorium Experiencing Hallucinations: No, Sensorium is Clear - Level of Consciousness Level of Consciousness: Alert Orientation: Yes Intact - Impulse Control Impulse Control: Intact - Insight and Judgement Insight and Judgement: Fair - Group Participation Particating in Group Activities: No - Medication Management Medication Management Adherence: Yes Assessment - Assessment Merits Inpatient Hospitalization: For Ongoing Evaluation, Consolidate Improvements, For Discharge Planning Inpatient DSM-V Dx: F33.9 Clinical Impression: Patient with history of major depression. Patient currently admitted due to worsening of depression, feelings of worthless and hopeless and helpless with suicidal attempt. Patient has also struggled with multiple medication trials in the past with no to limited response. Patient is a danger to self if discharged hence will be stabilized on inpatient unit with medication adjustments and therapy. Continues to feel depressed and anxious, denying suicidality,and leatha for safety. He does not find current trials of hydroxyzine, mirtazapine and trazodone helpful. hopeful ECT will provide relief. He needs continued admission for safety and stabilization. Plan - Plan Treatment Plan: Name: SHASHA GRAYSON Birthdate: 1975 [id number] - Patient continues to be hospitalized due to recent suicidal attempt, depression, anxiety and negative cognition awaiting transfer to [place] for ECT treatment. - Patient's as needed medications were switched from Ativan to Hydroxyzine 100 mg PO Q8hrs for anxiety and Trazodone to Remeron for sleep. - Patient will be monitored for improvement and side effects. Risk and benefits were discussed. - Patient was encouraged to continue his participation in the milieu, group and individual therapy. Medications: Current Medications Acetaminophen (Tylenol Tab*) 650 mg PO Q4H PRN PRN Reason: FEVER/PAIN Last Admin: 08/18/18 18:35 Dose: 650 mg Al Hydrox/Mg Hydrox/Simethicone (Maalox Plus*) 30 ml PO Q4H PRN PRN Reason: INDIGESTION Docusate Sodium (Colace Cap*) 100 mg PO BID IRENE Hydroxyzine HCl (Atarax Tab*) 100 mg PO Q8HR PRN PRN Reason: ANXIETY Last Admin: 08/17/18 19:25 Dose: 100 mg Mirtazapine (Remeron Tab*) 7.5 mg PO BEDTIME PRN PRN Reason: SLEEP Last Admin: 08/17/18 20:44 Dose: 7.5 mg Multivitamins (Theragran Tab*) 1 tab PO DAILY IRENE Last Admin: 08/18/18 08:28 Dose: Not Given Nicotine (Nicotine Inhaler*) 10 mg INH Q2H PRN PRN Reason: CRAVING - Discharge Plan Discharge Plan: Inpatient Hospitalization - [place] to [facility] for ECT
[2018-08-18] MEDS: Docusate CAP* 100 MG PO SCH (22:48)
[2018-08-18] MEDS ORDERED: Ibuprofen TAB* 600 MG ONE (23:47)
[2018-08-18] MEDS: Mirtazapine TAB* 15 MG PO PRN (23:55)
[2018-08-19] MEDS ORDERED: Ibuprofen TAB* 600 MG PO ONE (00:15)
[2018-08-19] MEDS: Acetaminophen TAB* 325 MG PO PRN ×4 (01:55→13:55)
[2018-08-19] MEDS: Ibuprofen TAB* 600 MG PO PRN ×2 (06:00→12:08)
[2018-08-19 08:51] VITALS: BP 158/87
[2018-08-19] MEDS: Vitamin THERAPEUTIC TAB PO SCH (09:31)
[2018-08-19] MEDS: Docusate CAP* 100 MG PO SCH (09:31)
--- NOTE | 2018-08-19 11:50 | PN ---
MHU: Group Therapy Note - Service Type Service Type: [id number] Group Psychotherapy - Cognitive Behavioral Group Therapy ( CBT):Patient attended CBT programming this morning and presented with flat affect that did not vary with discussion. Although responsive to direct prompts to respond to questions, patient did not engage in spontaneous conversation.
--- NOTE | 2018-08-19 15:12 | DS ---
Subjective - Subjective Service Types: [id number] [facility] Day Mgmt complex over 30 min Discharge Date: 08/19/18 Subjective: JUSTIFICATION FOR ADMISSION: Patient presented to emergency room with suicidal attempt of overdosing on Ativan with alcohol and worsening of depression. He requires inpatient psychiatric admission in order to provide treatment and stabilization as he is a danger to himself. CHIEF COMPLAINT: "I have no motivation do anything, I have tried many medications HISTORY OF THE PRESENT ILLNESS: Patient is a 43 y/o male, living with his parent, unemployed, with history of major depressive disorder. Patient was admitted to inpatient unit for worsening of depression, feelings of worthless, hopeless and helpless, decline in his functioning, hypersomnia, psychomotor retardation, anhedonia and was struggling with suicidal thoughts. 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 Patient woke up the next day still under influence of Ativan communicated his attempt and was brought to the hospital for further evaluation and treatment. Patient was observed and treated on the medical floor and then transferred. Patient has been compliant with his Ativan 2 mg BID but reports that he went off of all his other medications at a treatment center in [place] where he stayed for about 8 weeks somewhere in May/ June. Patient has multiple trial of medications in the past and reportedly has been unable to function and reports no improvement in his depression for some time and was thinking about ECT and do not want to try any medications. Patient reports no manic symptoms. Patient reports no psychotic symptoms. Patient continues to struggle with suicidal thoughts but is looking into ECT or TMS for his depression. Patient reports no homicidal ideation on the unit. Patient continued to exhibit behavior that is in control and is safe on all checks at the hospital . PAST PSYCHIATRIC HISTORY: Patient has history of multiple inpatient psychiatric hospitalization for depression and suicidal thoughts/attempts. Patient has history of outpatient psychiatric treatment for his depression with both therapy and medication management . Patients medications trials included lexapro, Prozac, Paxil, Citalopram, Wellbutrin, Duloxetine, Venlafaxine, Klonopin, Diazepam, Ambien, Trintellix, Lamictal, Ativan, Seroquel. Patient reported cutting himself once as a way of punishing himself. Patient has been in no inpatient or outpatient drug treatment. Patient has history of no homicidal threats, intent or attempt. Patient reports no history of aggressive and agitated behavior when decompensates. No access to firearm reported. Patient reports no manic or psychotic symptoms in the past. But during chart review patient had a period of manic like symptoms mentioned in Dr. Nobles note . 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 Patient reports that his anger caused him to excercise poor judgment on multiple occasions including sending emails to his boss which were uncharacteristically blunt and devaluing. He also reports excercising poor boundaries with a female colleague in terms of being emotionally too intimate and attempting to give her advise which he believes was crossing boundaries that he normally doesnt cross. Complaint was filed against him that he was physically to close to her. Patient denies problems with sleep or decreased need for sl eep,hypersexuality,excessive spending, shoplifting, breaking the law, homicidal ideation, hallucinations, delusions, or paranoid ideation. SUBSTANCE ABUSE HISTORY: Patient denies any current substance abuse. Patient reports history of abusing cannabis but years ago and no recent use. Patient reported use of alcohol on the day when he presented to ED. Patient overdosed on his Ativan with a bottle of wine in one evening. Patient reported last use of alcohol before this attempt was about a year ago. No inpatient or outpatient durg treatment reported. PAST MEDICAL HISTORY: No active medical problems, History of back injury during football play when he was in 8th grade. ALLERGIES: NKA FAMILY PSYCHIATRIC HISTORY: Patient reports no family history of psychiatric illness or suicide. Reports alcoholism on paternal side. FAMILY/PSYCHOSOCIAL HISTORY: Patient currently lives with his parents. Patient is . Patient has children. Patient education level is graduation with masters in creative writing. Patient support system includes family/parents. Born and raised in [place]. family was intact. father worked as dredge boat engineer. mother worked as teacher. He has one older brother. Did well in elementary school and middle school. denies disruptive behaviors, hyperactivity, attentional problems in early or middle childhood. Grades began to slip in high school. reports he became more defiant and began displaying a temper which he had previously never had. "Its like I had a chip on my shoulder". binge drank from age 17 to 22. arrested twice for public intoxication. graduated high school and went to [employer] for college. Had "first mental healthissue in college". developed panic attacks toward end of college and was treated with Paxil. Did well academically and graduated [employer] in 1998 ( took him five years to graduate). 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 met and in 2005. Started work at a [employer] agency and has worked for them in different capacities for the past 11 years. 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 REVIEW OF SYSTEMS: Patients review of symptoms was negative for any physical complaint. Patient vitals and labs were reviewed and within normal limits. Patients Medical floor physical exam before transfer was reviewed which is grossly normal with no active medical problem. Appearance: Anxious appearing. Eyes: No Scleral Icterus, PERRLA Ears/Nose/Mouth/Throat: NL Teeth, Lips, Gums, Mucous Membranes Moist Respiratory: Symmetrical Chest Expansion and Respiratory Effort, Clear to Auscultation Cardiovascular: NL Sounds; No Murmurs; No JVD, RRR Abdominal: NL Sounds; No Tenderness; No Distention, No Hepatosplenomegaly Extremities: No Edema Skin: No Rash or Ulcers Neurological: Alert and Oriented x 3 - Oriented to name, [facility], reason for admission. 2018. Initially mispoke and said May 11 instead of August 10, NL Sensation, NL Muscle Strength and Tone MENTAL STATUS EXAMINATION On ADMISSION: Appearance: 43 year old male, sparse hair, making poor eye contact disheveled, fair hygiene, poor grooming Behavior: cooperative Gait: normal but slow Abnormal motor activity: psychomotor retardation Speech: slow rate and rhythm, low tone and volume Mood: sad Affect: depressed, constrictive and not reactive Thought process: goal directed Thought Content: Suicidal/Homicidal ideation: suicidal thoughts with negative cognitive thinking, no hi Delusions: none Obsessions: none Phobia: none Perceptual disturbance: none Attention: limited Orientation: grossly intact Concentration: limited Memory: fair Insight: poor Judgment: improving given understanding and wanting to get ECT Impulse control: poor given recent attempt DIAGNOSIS On ADMISSION: Major Depressive Disorder, recurrent, Severe without psychotic features DIAGNOSIS On DISCHARGE: Major Depressive Disorder, recurrent, Severe without psychotic features, Generalized Anxiety Disorder, History of questionable manic symptom Objective - Appearance Appearance: Healthy Appearing Dysmorphic Features: No Hygiene: Normal - Behavior Psychomotor Activities: Abnormal-Decreased Exhibits Abnormal Movement: No - Attitude and Relatedness Attitude and Relatedness: Cooperative Eye Contact: Poor - Speech Quality: Unpressured Latencies: Normal Quantity: Terse - Mood Patient's Decription of Mood: "Anxious" - Affect Observed Affect: Constricted Affect Consistent with: Dysphoria - Thought Process Patient's Thought Process: Goal Directed Thought Content: Yes Passive Wish, No Suicidal Planning, No Homicidal Ideation, No Paranoid Ideation - Sensorium Experiencing Hallucinations: No, Sensorium is Clear Type of Hallucinations: Visual: No, Auditory: No, Command: No - Level of Consciousness Level of Consciousness: Alert Orientation: Yes Intact, Yes Orientated to Time, Yes Orientated to Place, Yes Orientated to Person - Impulse Control Impulse Control: Intact - at time of evluation but had recent history of suicidal attempt wiht poor impulse control - Insight and Judgement Insight and Judgement: Fair - at time of evlaluation, acceptive of ECT treatment - Group Participation Particating in Group Activities: Yes - Medication Management Medication Management Adherence: Yes - as needed Treatment Course & Assessment Clinical Course & Impression: Patient is 43 y/o male with history of major depression and back injury. Patient currently admitted due to worsening of depression, feelings of worthless and hopeless and helpless with suicidal attempt. Patient has also struggled with multiple medication trials in the past with no to limited response. Patient was a danger to self if discharged hence will be stabilized on inpatient unit with medication adjustments and therapy. Patient was not acceptive of medications on the unit. Patient was hopeless about response from mediations as he has been on multiple trials of medication in the past. Patient reported continued depression, suicidal thoughts, no intent or plan in the hospital. Patient was hoping to get his depression resolved with treatment of ECT. Patient was educated and encouraged to participate in therapy and milieu. patient has been isolative and secluded most of the time during this hospitalization. Patient was able to come out of his room after some motivation to at least attend some groups. Patient was given psyhoeducation about depression and treatment options other than medications. Patient mood was anxious and dysphoric and worries about if he was ever going to get better. Patient report he is distress about his feelings of depression especially around his and children and has been living at his parents since the beginning of this year to avoid that. Patient was monitored and followed up for improvement and side effects. Patient was in the process of being transferred to [place] for ECT treatment. Patient's agreed to take as needed medications for anxiety and benzo withdrawal and sleep. Patient during this hospitalization was hoping that ECT will help with his severe depressive symptoms. 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 Patient reported no current suicidal intent or plan in the hospital. Patient started doing somewhat better in attending groups. Patient was less isolative and secluded. Patient sleeping was disturbed at night with intense anxiety and took Ativan to resolve that with limited benefit. Patient has been safe on all checks and requesting for observation level to be switched to q30 minutes so that he can have comfort room access later and computer privileges which he utilized appropriately. Patient continued to have catastrophic thinking and feeling that ativan makes it worst when effects wears off. Patient reported continued depression with minimal improvement in suicidal thoughts, negative cognition. Patient was working to find a root cause to his depression but has been unable to find any specific cause but did reports that he feels that his symptoms started after having back injury in 8th grade. Patient still reports some residual pain on right side of the body due to that. Patient was reporting no homicidal ideation. No psychotic symptoms of delusions or hallucinations. Patient's as needed medications were switched due to limited benefit from Ativan to Hydroxyzine 100 mg PO Q8hrs for anxiety and Trazodone was changed to Remeron for sleep. Patient was acceptive of treatment of ECT, was awaiting for acceptance from [facility]. Patient was accepted today and was transferred to [facility] on a voluntary status for further treatment of his depression anxiety. Merits Inpatient Hospitalization: Yes Clear for Discharge: Other - transfered to [facility] Inpatient DSM-V Dx: F33.9 Discharge Planning - Discharge Planning Outpatient Program: transfered to [facility] Medications: Discharge Medications Acetaminophen (Tylenol Tab*) 650 mg PO Q4H PRN PRN Reason: FEVER/PAIN Last Admin: 08/19/18 13:55 Dose: 650 mg Al Hydrox/Mg Hydrox/Simethicone (Maalox Plus*) 30 ml PO Q4H PRN PRN Reason: INDIGESTION Docusate Sodium (Colace Cap*) 100 mg PO BID [facility] Last Admin: 08/19/18 09:31 Dose: Not Given Hydroxyzine HCl (Atarax Tab*) 100 mg PO Q8HR PRN PRN Reason: ANXIETY Last Admin: 08/17/18 19:25 Dose: 100 mg Ibuprofen (Motrin Tab*) 600 mg PO Q6H PRN PRN Reason: PAIN Last Admin: 08/19/18 12:08 Dose: 600 mg Mirtazapine (Remeron Tab*) 7.5 mg PO BEDTIME PRN PRN Reason: SLEEP Last Admin: 08/18/18 23:55 Dose: 7.5 mg Multivitamins (Theragran Tab*) 1 tab PO DAILY [facility] Last Admin: 08/19/18 09:31 Dose: Not Given Discharge Planning: Prescriptions provided for discharge [] Yes [x] No Follow up care details as per social work arrangements. Patient response to discharge plan: [x] eager for transfer to [facility] for further treatment with ECT [] agreeable with discharge plan [] ambivalent about discharge [] disagrees with discharge today
== END 2018-08-19 15:00 | DRG 751 ==
LOC: ED 14:44 → MED 18:02 → OBSVTOIN 08-11 16:00 → BSU 08-11 16:18
PROVIDERS: ADMIT Internal Medicine; ATTEND Psychiatry & Neurology Psychiatry
DX: F33.2 Major depressive disorder, recurrent severe without psychotic features (principal); R45.851 Suicidal ideations; F15.93 Other stimulant use, unspecified with withdrawal; F41.1 Generalized anxiety disorder; T42.4X2A Poisoning by benzodiazepines, intentional self-harm, initial encounter; T51.0X2A Toxic effect of ethanol, intentional self-harm, initial encounter; X58.XXXA Exposure to other specified factors, initial encounter; M25.511 Pain in right shoulder; Y92.009 Unspecified place in unspecified non-institutional (private) residence as the place of occurrence of the external cause; Z79.899 Other long term (current) drug therapy; Z81.1 Family history of alcohol abuse and dependence
CPT/HCPCS: 36415; 80053; 80307; 80320; 80329; 81003; 84443; 85025; 90853; 93005; 99222; 99231; 99238; 99283; A9270-GY; G0480

== ENCOUNTER 2018-09-05 20:25 | Inpatient (IN) | payer OTHER ==
[2018-09-05] MEDS ORDERED: NS 0.9% 1000 ML* 1,000 ML IV ONE (20:35)
--- NOTE | 2018-09-05 20:42 | ED ---
Psychiatric Complaint - HPI Summary HPI Summary: This patient is a 43 year old M brought in by ambulance accompanied by his with a chief complaint of SI with attempt since yesterday morning at 8:00am. He states that he took 50 Tylenol pills, 500mg each. The patient rates the pain 6/ 10 in severity. Patient reports palpitations and feeling ill. He did not tell his until today and decided to come to the ED. The patient had a recent suicide attempt 3-4 weeks ago and had 6 ECT treatments at [facility]. The patient thinks he is never going to get better. He was placed on a tricyclic in [facility], antidepressant, but didnt take it today. He has taken it every day before today. He did not take an overdose of this medication, but he doesn t know the name of the medication. PMHX prior SI, major depressive disorder. 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 - Character: Depressed, Frustrated Aggravating Factor(s): Drug Use - tylenol Related History: Positive For: Prior Psychiatric Issues - SI Has Suicidal: Reports: Demonstrates Gesture - Risk Factor(s) Completed Suicide Risk Factors: Male, Past Suicide Attempt - 3-4 weeks ago - Allergies/Home Medications Allergies/Adverse Reactions: Allergies Allergy/AdvReac Type Severity Reaction Status Date / Time No Known Allergies Allergy Verified 08/09/18 18:13 Home Medications: Home Medications Doxepin HCl 50 mg PO BID 09/05/18 [History Confirmed 09/05/18] PMH/Surg Hx/FS Hx/Imm Hx Endocrine/Hematology History: Denies: Hx Diabetes, Hx Thyroid Disease Cardiovascular History: Denies: Hx Hypertension Sensory History: Denies: Hx Contacts or Glasses, Hx Legally Blind, Hx Deafness, Hx Hearing Aid Opthamlomology History: Denies: Hx Contacts or Glasses, Hx Legally Blind Psychiatric History: Reports: Hx Anxiety, Hx Depression, Hx Inpatient Treatment , Hx Community Mental Health Tx Denies: Hx Eating Disorder, Hx of Violent Episodes Against Others - Immunization History Date of Tetanus Vaccine: Unknown Date of Influenza Vaccine: None Infectious Disease History: No Infectious Disease History: Denies: Traveled Outside the [place] in Last 30 Days - Family History Known Family History: Positive: Diabetes, Other - negative mental health, depression - Social History Lives: With Family Alcohol Use: states that he last drank alcohol six months ago Substance Use Type: Reports: Other Substance Use Comment - Amount & Last Used: CBD oil Smoking Status (MU): Former Smoker Have You Smoked in the Last Year: Yes - reports he smokes "on occasion", identifying one cigarette "every so often" Review of Systems Positive: Palpitations Positive: Depressed All Other Systems Reviewed And Are Negative: Yes Physical Exam - Summary Physical Exam Summary: Appearance: Well-appearing, Well-nourished, lying in bed comfortably Skin: Warm, dry, no obvious rash Eyes: sclera anicteric, no conjunctival pallor ENT: mucous membranes moist, pharynx appears normal Neck: Supple, nontender Respiratory: Clear to auscultation, no signs of respiratory distress Cardiovascular: Normal S1, S2. No murmurs. Normal distal pulses in tibial and radial bilaterally. Abdomen: Soft, nontender, normal active bowel sounds present Musculoskeletal: Normal, Strength/ROM Intact Neurological: A&Ox3, awake and alert, mentation is normal, speech is fluent and appropriate Psychiatric: affect is normal, does not appear anxious or depressed Triage Information Reviewed: Yes Vital Signs On Initial Exam: Initial Vitals Temp Pulse Resp BP Pulse Ox 98.3 F 91 20 135/96 97 09/05/18 20:28 09/05/18 20:28 09/05/18 20:28 09/05/18 20:28 09/05/18 20:28 Vital Signs Reviewed: Yes Diagnostics - Vital Signs Vital Signs Temp Pulse Resp BP Pulse Ox 09/05/18 20:28 98.3 F 91 20 135/96 97 - Laboratory Result Diagrams: 09/05/18 21:09 09/05/18 21:09 Lab Statement: Any lab studies that have been ordered have been reviewed, and results considered in the medical decision making process. - EKG 20:50 Cardiac Rate: NL - 93 bpm EKG Rhythm: Sinus Rhythm Summary of EKG Findings: P waves, QRS complex, and T waves are within normal limits, T waves and intervals are normal, no ischemic changes. Course/Dx - Course Course Of Treatment: This patient is a 43 year old M brought in by ambulance accompanied by his with a chief complaint of SI with attempt since yesterday morning at 8:00am. He states that he took 50 Tylenol pills, 500mg each. The patient rates the pain 6/10 in severity. Patient reports palpitations and feeling ill. He did not tell his until today and decided to come to the ED. The patient had a recent suicide attempt 3-4 weeks ago and had 6 ECT treatments at [facility]. The patient thinks he is never going to get better. He was placed on a tricyclic in [facility], antidepressant, but didnt take it today. He has taken it every day before today. An EKG reveals NSR 93 bpm, P waves, QRS complex, and T waves are within normal limits, T waves and intervals are normal, no ischemic changes. Test results with no significant abnormalities. In the ED course the patient was given Acetylcysteine and IV fluids. We discussed patient care with Poison Control and they recommended Acetylcysteine therapy. We discussed patient care with Dr. Ayon and they recommended admission. Patient will be admitted. - Differential Dx/Clinical Impression Provider Diagnosis: Acetaminophen overdose, Suicide attempt - Physician Notifications Discussed Care Of Patient With: Poison Control Time Discussed With Above Provider: 21:40 Instructed by Provider To: Other - acetylcysteine therapy Discharge - Sign-Out/Discharge Documenting (check all that apply): Patient Departure - admission - Discharge Plan Condition: Fair Disposition: ADMITTED TO [facility] - Billing Disposition and Condition Condition: FAIR Disposition: Admitted to [facility] - Attestation Statements Document Initiated by Enoc: Yes Documenting Kathleenibkimberly: Iban Mckeon Provider For Whom Enoc is Documenting (Include Credential): MD Enoc Virk Attestation: Iban Gardiner, scribed for Magen Lopez MD on 09/06/18 at 0212. Scribe Documentation Reviewed: Yes Provider Attestation: The documentation as recorded by the Iban khan accurately reflects the service I personally performed and the decisions made by me, Magen Lopez MD Status of Scribe Document: Viewed Consult Consult: Spoke with Dr. Ayon and they recommended admission
[2018-09-05 21:08] LABS: Urine Appearance Clear; Urine Bilirubin Negative (Negative); Urine Blood Negative (Negative); Urine Color Yellow; Urine Glucose Negative (Negative); Urine Ketones Negative (Negative); Urine Nitrite Negative (Negative); Urine Protein Negative (Negative); Urine Specific Gravity 1.021 (1.010-1.030); Urine Urobilinogen Negative (Negative)
[2018-09-05 21:19] LABS: Barbiturates Urine Screen None Detected (None Detect); Benzodiazepine Urine Screen None Detected (None Detect); Urine Cannabinoids Screen None Detected (None Detect)
[2018-09-05 21:33] LABS: ABS Basophils 0 10^3/ul (0-0.2); ABS Eosinophils 0.2 10^3/ul (0-0.6); ABS Lymphocytes 1.3 10^3/ul (1.0-4.8); ABS Monocytes 0.6 10^3/ul (0-0.8); ABS Neutrophils 6.2 10^3/ul (1.5-7.7); ABS Nucleated RBC 0 10^3/ul; Eosinophil % 2.3 %; Hematocrit 44 % (42-52); Hemoglobin 15.7 g/dl (14.0-18.0); Mean Corpuscular HGB Conc 36 g/dl (31-36); Mean Corpuscular Hemoglobin 31 pg (27-31); Mean Corpuscular Volume 87 fL (80-94); Mean Platelet Volume 6.5 fL (7.4-10.4); Nucleated Red Blood Cells % 0.1; Platelet Count 238 10^3/ul (150-450); Red Blood Count 5.09 10^6/ul (4.00-5.40); Red Cell Distribution Width 13 % (10.5-15); White Blood Count 8.3 10^3/ul (3.5-10.8)
[2018-09-05 21:37] LABS: ALT 252 U/L (7-52); AST 139 U/L (13-39); Albumin 4.6 g/dL (3.2-5.2); Albumin/Globulin Ratio 1.8 (1-3); Alkaline Phosphatase 92 U/L (34-104); Anion Gap 9 mmol/L (2-11); BUN/Creatinine Ratio 15.1 (8-20); Blood Urea Nitrogen 11 mg/dL (6-24); CO2 Carbon Dioxide 24 mmol/L (22-32); Calcium 9.6 mg/dL (8.6-10.3); Chloride 105 mmol/L (101-111); EGFR African American 142.6 (>60); EGFR Non-African American 117.8 (>60); Globulin 2.5 g/dL (2-4); Glucose 96 mg/dL (70-100); Potassium 3.6 mmol/L (3.5-5.0); Sodium 138 mmol/L (135-145); Total Protein 7.1 g/dL (6.4-8.9)
[2018-09-05] MEDS ORDERED: Acetylcysteine IV* 15,000 MG in D5W 250 ML BAG* 200 ML IVPB ONE (21:41)
[2018-09-05 21:52] LABS: Acetaminophen < 15 mcg/mL; Alcohol < 10 mg/dL (<10); Salicylate < 2.50 mg/dL (<30)
[2018-09-05] MEDS ORDERED: Albuterol 2.5 MG/3 ML NEB.SOL* (0.083%) INH PRN (22:20)
--- NOTE | 2018-09-05 22:31 | ADMNOTE ---
Subjective Date of Service: 09/05/18 Interval History: code status full this is admission h/p hpi this is a 43 yr old wm with hx of major depresison s/p first ect tx on 2017 at [facility] ---> does not like ect was broght in after he took 50 tabs of tylenol 500 mg at wed 8-9 am. pt currently lives with his parents because he and do not want their kids to see his mood swing change. called him on night at 7 pm and asked whether he felt safe---> pt told that he took tylenol to try to kill himself then himself called 911 to come in. this is the second suicidal attempt within one month. first time was on 08/11/2018 with benzo 50 tabs ---> ? bipolar disorder dxd by juanita here back 01/2018 was on lithium from 01/2018 until 04/2018---> did not like lithium and was off. ( was on depakote back 2013) pt's tylenol level was normal but lft was elevated to 200s. er and this caption writer both spoke with poision will start mucomyst infusion repeat lft at 5:30 pm/two hours after third bag is done due to elevated lft pt stated that he was reading on the web after he overdose with tylenol reg side effects and changed his mind that he is not suicidal anymore pt was given benzo for four tabs prior to his ect then said he had clonipin 1 mg ordered tid from juanita at [facility] but did not get it filled. pt was on multiple different anti depressive med besides benzo but currently on doxepin bid ( did not take his dose today prior to admission ) ast 139 but alt was 250 despite of undectable tyllenol level phx major depression anxiety hx of suicidal attempt twice in aug 2018 08/11/2018 with benzo overdose 09/05 tylenol overdose ? borderline personality disorder htn with a sig of whitecoat htn involvemnent pshx denied social hx no cig rare etoh no ivda stays with his parents but still with /kids unemployed fhx mom + dm Review of Systems - Measurements Intake and Output: Intake and Output Last 24 Hours 12/25/18 12/26/18 12/27/18 12/28/18 06:59 06:59 06:59 06:59 Weight 220 lb - Review of Systems General Comments: pertinent as per hpi Objective Active Medications: Albuterol (Ventolin 2.5 Mg/3 Ml Neb.Valeria*) 2.5 mg INH [id number] AWAKE PRN PRN Reason: sob/wheezing Enoxaparin Sodium (Lovenox(*)) 40 mg SUBCUT Q24H IRENE Acetylcysteine 15,000 mg/ (Dextrose) 275 mls @ 200 mls/hr IVPB ED ONCE ONE Stop: 09/05/18 23:03 Acetylcysteine 5,000 mg/ (Dextrose) 525 mls @ 131.25 mls/hr IVPB ONCE ONE; Protocol Stop: 09/06/18 03:14 Acetylcysteine 10,000 mg/ (Dextrose) 1,050 mls @ 65.625 mls/hr IVPB ONCE ONE; Protocol Stop: 09/06/18 19:14 Acetylcysteine 10,000 mg/ (Dextrose) 1,050 mls @ 62.5 mls/hr IVPB ONCE IRENE Non-Formulary Medication (Doxepin Hcl [Doxepin Hcl]) 50 mg PO BID [facility] Vital Signs - 8 hr 09/05/18 20:28 Temperature 98.3 F Pulse Rate 91 Respiratory 20 Rate Blood Pressure 135/96 (mmHg) O2 Sat by Pulse 97 Oximetry Oxygen Devices in Use Now: None Appearance: nad. psychomotor retardation has been improving within 15 min when he was interviewed Eyes: No Scleral Icterus, PERRLA Ears/Nose/Mouth/Throat: NL Teeth, Lips, Gums, Clear Oropharnyx, Mucous Membranes Moist Neck: NL Appearance and Movements; NL JVP, Trachea Midline, No Thyroid Enlargement, Masses Respiratory: Symmetrical Chest Expansion and Respiratory Effort, Clear to Auscultation Cardiovascular: NL Sounds; No Murmurs; No JVD, RRR Abdominal: NL Sounds; No Tenderness; No Distention Extremities: No Edema, - - able to raise ue and le against gravity Skin: No Rash or Ulcers Neurological: Alert and Oriented x 3, NL Sensation, NL Muscle Strength and Tone Result Diagrams: 09/05/18 21:09 09/05/18 21:09 EKG Data: ekg ns no acute st t change Assess/Plan/Problems-Billing Assessment: this is a 43 yr old wm with hx of majory depression anxiety had his second sudical attempt in aug with tylenol ---> took 50 tabs of tylenol 500 mg on sun 8 -9 am and decided to come in 7 pm ---> tylenol level is neg but alt 252 ast 139 but inr is wnl - Patient Problems (1) Major depressive disorder, severe Current Visit: No Status: Acute Priority: High Onset Date: 07/16/14 Code (s): F32.2 - MAJOR DEPRESSV DISORD, SINGLE EPSD, SEV W/O PSYCH FEATURES SNOMED Code(s): 581390528 Comment: will need psy in am to eval will call in his psychomotor retardation exam improved within 15 min since he was seen intially to 15 min later when he was paying attention to questions reg his phx 1:1 due to suicidal attempt ( pt stated that he changed his mind and is not suicidal when he was seen ---> is at bedside not sure he purposedly mentioned---> not a trustworthy storian since this is his second attmept within one month ) ck his tsh and free t4 (2) Tylenol overdose Current Visit: Yes Status: Acute Code(s): T39.1X1A - POISONING BY 4- AMINOPHENOL DERIVATIVES, ACCIDENTAL, INIT SNOMED Code(s): 589649683 Comment: mucomyst drip lft two hours ordered at 5:30 pm two hours prior as per poision (3) Elevated liver enzymes Current Visit: Yes Status: Acute Code(s): R74.8 - ABNORMAL LEVELS OF OTHER SERUM ENZYMES SNOMED Code(s): 814573617 Comment: moniter third left to be done at 530 pm (4) Anxiety disorder, unspecified Current Visit: No Status: Acute Code(s): F41.9 - ANXIETY DISORDER, UNSPECIFIED SNOMED Code(s): 921035237 Comment: on doxepin bid as per psy (5) Suicide attempt by substance overdose Current Visit: No Status: Acute Code(s): T65.92XA - TOXIC EFFECT OF UNSP SUBSTANCE, INTENTIONAL SELF-HARM, INIT SNOMED Code(s): 97715172 Comment: 1: 1 until psy eval (6) HTN (hypertension) Current Visit: Yes Status: Acute Code(s): I10 - ESSENTIAL (PRIMARY) HYPERTENSION SNOMED Code(s): 43943963 Comment: htn with a component of whitecoat htn initial 161/122 ---> 141/9 supportive care consider prn hydralazine if needed (7) Full code status Current Visit: Yes Status: Acute Code(s): Z78.9 - OTHER SPECIFIED HEALTH STATUS SNOMED Code(s): 871604549 (8) DVT prophylaxis Current Visit: Yes Status: Acute Code(s): AIJ0568 - SNOMED Code(s): 863831952 Comment: refused lovenox scd instead
[2018-09-05] MEDS ORDERED: Acetylcysteine IV* 10,000 MG in D5W 1000 ML BAG* 1,000 ML IVPB SCH (23:00)
[2018-09-05] MEDS ORDERED: Enoxaparin(*) 40 MG/0.4 ML SYR SUBCUT SCH (23:00)
[2018-09-05 23:08] LABS: INR 1.14 (0.77-1.02)
[2018-09-05] MEDS ORDERED: Acetylcysteine IV* 5,000 MG in D5W 500 ML BAG* 500 ML IVPB ONE (23:15)
[2018-09-06] MEDS ORDERED: diPHENhydraMINE PO* 50 MG PO PRN (00:17)
[2018-09-06] MEDS: diPHENhydraMINE PO* 50 MG PO PRN ×2 (00:25→21:18)
[2018-09-06] MEDS ORDERED: Ondansetron INJ* 2 MG/ML VIAL IV PRN (00:33)
[2018-09-06] MEDS ORDERED: Ketorolac INJ* 30 MG/ML 1 ML VIAL IV ONE (01:00)
[2018-09-06] MEDS: Melatonin 3 MG TAB PO PRN ×2 (01:48→21:18)
[2018-09-06] MEDS ORDERED: Acetylcysteine IV* 10,000 MG in D5W 1000 ML BAG* 1,000 ML IVPB ONE ×3 (03:15→22:30)
[2018-09-06] MEDS ORDERED: hydrALAZINE IV* 20 MG/ML VIAL IV SLOW PU PRN (04:22)
[2018-09-06 06:01] LABS: ABS Basophils 0 10^3/ul (0-0.2); ABS Eosinophils 0.2 10^3/ul (0-0.6); ABS Lymphocytes 1.4 10^3/ul (1.0-4.8); ABS Monocytes 0.9 10^3/ul (0-0.8); ABS Neutrophils 6.1 10^3/ul (1.5-7.7); ABS Nucleated RBC 0 10^3/ul; Eosinophil % 2.2 %; Hematocrit 44 % (42-52); Hemoglobin 15.5 g/dl (14.0-18.0); Lymphocyte % 16.1 %; Mean Corpuscular HGB Conc 36 g/dl (31-36); Mean Corpuscular Hemoglobin 31 pg (27-31); Mean Corpuscular Volume 87 fL (80-94); Mean Platelet Volume 6.8 fL (7.4-10.4); Nucleated Red Blood Cells % 0.1; Platelet Count 228 10^3/ul (150-450); Red Cell Distribution Width 14 % (10.5-15); White Blood Count 8.6 10^3/ul (3.5-10.8)
[2018-09-06 06:30] LABS: BUN/Creatinine Ratio 13.4 (8-20); Blood Urea Nitrogen 9 mg/dL (6-24); CO2 Carbon Dioxide 25 mmol/L (22-32); Calcium 9.2 mg/dL (8.6-10.3); Chloride 104 mmol/L (101-111); Cholesterol 156 mg/dL; EGFR African American 157.4 (>60); EGFR Non-African American 130.1 (>60); Glucose 104 mg/dL (70-100); HDL Cholesterol 31.2 mg/dL; LDL Cholesterol 95 mg/dL; Sodium 139 mmol/L (135-145); Triglycerides 150 mg/dL
[2018-09-06 06:36] LABS: TSH (Thyroid Stimulating Horm) 2.56 mcIU/mL (0.34-5.60)
[2018-09-06 06:54] LABS: Anion Gap 10 mmol/L (2-11)
[2018-09-06 08:18] LABS: ALT 392 U/L (7-52); Albumin 4.3 g/dL (3.2-5.2); Albumin/Globulin Ratio 1.9 (1-3); Alkaline Phosphatase 78 U/L (34-104); Globulin 2.3 g/dL (2-4); Total Protein 6.6 g/dL (6.4-8.9)
[2018-09-06] MEDS ORDERED: Ketorolac INJ* 30 MG/ML 1 ML VIAL IV PUSH ONE ×2 (08:21→19:42)
[2018-09-06 09:41] LABS: Potassium Redraw 3.5 mmol/L (3.5-5.0)
[2018-09-06] MEDS ORDERED: Enoxaparin(*) 40 MG/0.4 ML SYR SUBCUT SCH (10:00)
[2018-09-06] MEDS: DOXEPIN HCL 50 MG PO SCH ×2 (10:12→17:47)
[2018-09-06 11:13] LABS: Troponin I 0.01 ng/mL (<0.04)
[2018-09-06] MEDS: hydrOXYzine HCL TAB* 50 MG PO PRN (11:42)
--- NOTE | 2018-09-06 13:51 | PN ---
Subjective Date of Service: 09/06/18 Interval History: Pt seen and examined. Meds and labs reviewed. CC: Anxiety and chest pain radiating to left arm ROS: Denied CRONIN/dizziness, F/C, N/V, SOB, increased cough, sputum production, abd pain, diarrhea, constipation, dysuria, myalgias, arthralgias, throat pain, and new skin lesions. The rest of the 14 point ROS are unremarkable. PHYSICAL EXAM: GEN APPEARANCE: Awake, not in acute distress HEENT: NC/AT, PERRLA, moist oral mucosa, (-) throat erythema NECK: Soft, supple, (-) cervical LAD, (-)JVD HEART: S1S2 WNL, RRR, No MRG CHEST: CTA, BL, GAE, No W/R/R ABD: Soft, ND/NT, NABS 4x Q EXT: No C/C/E SKIN: Warm to touch PSYCH: No active psychosis, hallucinations, depression, SI/HI Objective Active Medications: Albuterol (Ventolin 2.5 Mg/3 Ml Neb.Valeria*) 2.5 mg INH [id number] AWAKE PRN PRN Reason: sob/wheezing Diphenhydramine HCl (Benadryl Po*) 50 mg PO BEDTIME PRN PRN Reason: INSOMNIA Last Admin: 09/06/18 00:25 Dose: 50 mg Hydralazine HCl (Apresoline Iv*) 5 mg IV SLOW PU Q6H PRN PRN Reason: BLOOD PRESSURE Hydroxyzine HCl (Atarax Tab*) 50 mg PO Q4H PRN PRN Reason: ANXIETY Last Admin: 09/06/18 11:42 Dose: 50 mg Acetylcysteine 10,000 mg/ (Dextrose) 1,050 mls @ 62.5 mls/hr IVPB ONCE ONE Stop: 09/06/18 20:02 Last Admin: 09/06/18 04:31 Dose: 62.5 mls/hr Melatonin (Melatonin) 3 mg PO BEDTIME PRN; Protocol PRN Reason: SLEEP Last Admin: 09/06/18 01:48 Dose: 3 mg Pto: (Doxepin Hcl [ (Doxepin Hcl] 50 Mg)) 50 mg PO 0800,1400 IRENE Last Admin: 09/06/18 10:12 Dose: 50 mg Ondansetron HCl (Zofran Inj*) 4 mg IV Q6H PRN PRN Reason: NAUSEA Last Admin: 09/06/18 01:15 Dose: 4 mg Vital Signs - 8 hr 09/06/18 09/06/18 09/06/18 06:00 06:04 06:11 Temperature Pulse Rate 85 Respiratory 17 27 20 Rate Blood Pressure 160/101 (mmHg) O2 Sat by Pulse 94 Oximetry 09/06/18 09/06/18 09/06/18 07:00 07:37 08:00 Temperature 98.9 F Pulse Rate 83 82 Respiratory 17 20 Rate Blood Pressure (mmHg) O2 Sat by Pulse 97 96 Oximetry 09/06/18 09/06/18 09/06/18 09:00 10:00 11:00 Temperature Pulse Rate 82 97 100 Respiratory 16 22 19 Rate Blood Pressure (mmHg) O2 Sat by Pulse 100 97 93 Oximetry 09/06/18 09/06/18 12:00 13:00 Temperature 99.2 F Pulse Rate 85 85 Respiratory 21 15 Rate Blood Pressure (mmHg) O2 Sat by Pulse 95 97 Oximetry Oxygen Devices in Use Now: None Result Diagrams: 09/06/18 05:36 09/06/18 09:15 Microbiology and Other Data: Microbiology 09/06/18 00:01 Nasal Screen MRSA (PCR) - Final Nasal Mrsa Not Detected EKG Data: ekg ns no acute st t change Assess/Plan/Problems-Billing Assessment: this is a 43 yr old wm with hx of majory depression anxiety had his second sudical attempt in aug with tylenol ---> took 50 tabs of tylenol 500 mg on sun 8 -9 am and decided to come in 7 pm ---> tylenol level is neg but alt 252 ast 139 but inr is wnl - Patient Problems (1) Chest pain Current Visit: Yes Status: Acute Code(s): R07.9 - CHEST PAIN, UNSPECIFIED SNOMED Code(s): 83607061 Comment: -Likely due to anxiety -EKG and CXR unremarkable -1st set of troponins (-)---Continue to trend x2 more -Placed on Hydroxyzine PRN (2) Anxiety disorder, unspecified Current Visit: No Status: Acute Code(s): F41.9 - ANXIETY DISORDER, UNSPECIFIED SNOMED Code(s): 445072298 Comment: -As above (3) Major depressive disorder, severe Current Visit: No Status: Acute Priority: High Onset Date: 07/16/14 Code (s): F32.2 - MAJOR DEPRESSV DISORD, SINGLE EPSD, SEV W/O PSYCH FEATURES SNOMED Code(s): 265781703 Comment: -Two suicidal attempts within a month -Left message at [facility] for pt to be seen and evaluated (4) Tylenol overdose Current Visit: Yes Status: Acute Code(s): T39.1X1A - POISONING BY 4- AMINOPHENOL DERIVATIVES, ACCIDENTAL, INIT SNOMED Code(s): 967576562 Comment: -Finish 3rd set of Acetylcysteine protocol IV -Continue to follow LFTs (5) HTN (hypertension) Current Visit: Yes Status: Acute Code(s): I10 - ESSENTIAL (PRIMARY) HYPERTENSION SNOMED Code(s): 16354083 Comment: -Continue PRN Hydralazine for now (6) DVT prophylaxis Current Visit: Yes Status: Acute Code(s): LPM6409 - SNOMED Code(s): 391248539 Comment: -Pt refused Lovenox on admission -Continue SCDs Status and Disposition: -As above
--- NOTE | 2018-09-06 16:24 | CONS ---
AMENDED REPORT NOW INCLUDES DATE OF CONSULT CONSULTATION REPORT: DATE OF CONSULT: 09/06/18 LOCATION: ICU Bed 2 CONSULTATION REQUESTED BY: Dr. Almaguer. REASON FOR CONSULT: Assess for need for psychiatric care following second suicide attempt twice in one month. HISTORY OF PRESENT ILLNESS: Mr. Asher left inpatient ECT treatment on . He attended appsplit dinner with his family and reported feeling distraught the next day. He was brought into the emergency department at about 2100 on 09/05/18 after having ingested 50 x 500 mg Tylenot. He remains on acetylcysteine drip in the ICU for treatment of upward trending liver enzymes. He did have complaint this morning of pressure in his chest and is cycling enzymes to rule out MN. Once medically cleared, he will be appropriate for admission to the mental health unit for continued care for his depressive disorder. For full details of his recent psychiatric history, please refer to the history and physical note from Dr. Richardson produced on 08/12/18. On that admission, the patient had attempted to kill himself with overdose of Ativan and a bottle of wine. He was referred after 8 days on the unit to inpatient ECT services. The patient reports that he does not want to continue the outpatient ECT series that had been scheduled for him due to memory loss and feeling that the treatment has been ineffective. MENTAL STATUS EXAMINATION: The patient has depressed affect and reports depressed mood. He is appropriately dressed with grooming adequate for his status as a patient in the ICU. He was interviewed supine in bed. He showed no sign of any thought disorder. He denied any hallucinations or paranoia. His insight appears to be fair, but with poor judgement. He had speech of regular rate, rhythm, and volume, but at times with extended latencies. I was unable to assess gait or other motor function. RECOMMENDATIONS: Given this potentially lethal suicide attempt and history of treatment for major depressive disorder, the patient is appropriate for readmission to the mental health unit once medically cleared, and should not be discharged from hospital prior to psychiatric care in a safe setting. Please notify the unit when the patient may be ready for a transfer to the [facility]. [id number]/[facility] #: [id number] JING
[2018-09-06] MEDS ORDERED: Acetaminophen TAB* 325 MG PO PRN (16:48)
[2018-09-06] MEDS: Ibuprofen TAB* 600 MG PO PRN (17:02)
[2018-09-06 18:07] LABS: INR 1.11 (0.77-1.02)
[2018-09-06 18:21] LABS: Albumin 4.3 g/dL (3.2-5.2); Albumin/Globulin Ratio 1.8 (1-3); Globulin 2.4 g/dL (2-4); Indirect Bilirubin 0.4 mg/dL (0.3-1.0); Total Bilirubin 0.5 mg/dL (0.2-1.0); Total Protein 6.7 g/dL (6.4-8.9)
[2018-09-06] MEDS ORDERED: Cyclobenzaprine TAB* 10 MG PO ONE (19:59)
[2018-09-06] MEDS ORDERED: Acetylcysteine IV* 10,000 MG in D5W 1000 ML BAG* 1,000 ML IVPB SCH (20:00)
[2018-09-06] MEDS ORDERED: Zolpidem TAB* 5 MG PO ONE (23:34)
[2018-09-07] MEDS: Lidocaine PATCH 5%* 1 PATCH TRANSDERM SCH (09:59)
[2018-09-07] MEDS: DOXEPIN HCL 50 MG PO SCH ×2 (09:59→15:20)
[2018-09-07 10:04] LABS: ABS Basophils 0 10^3/ul (0-0.2); ABS Eosinophils 0.3 10^3/ul (0-0.6); ABS Lymphocytes 1.3 10^3/ul (1.0-4.8); ABS Monocytes 0.6 10^3/ul (0-0.8); ABS Neutrophils 4.4 10^3/ul (1.5-7.7); ABS Nucleated RBC 0 10^3/ul; Hematocrit 43 % (42-52); Hemoglobin 14.8 g/dl (14.0-18.0); Mean Corpuscular HGB Conc 35 g/dl (31-36); Mean Corpuscular Hemoglobin 31 pg (27-31); Mean Corpuscular Volume 89 fL (80-94); Mean Platelet Volume 6.7 fL (7.4-10.4); Nucleated Red Blood Cells % 0; Platelet Count 205 10^3/ul (150-450); Red Blood Count 4.82 10^6/ul (4.00-5.40); Red Cell Distribution Width 14 % (10.5-15); White Blood Count 6.6 10^3/ul (3.5-10.8)
[2018-09-07 10:24] LABS: Albumin/Globulin Ratio 1.8 (1-3); BUN/Creatinine Ratio 11.1 (8-20); Calcium 9.2 mg/dL (8.6-10.3); EGFR African American 144.9 (>60); EGFR Non-African American 119.7 (>60); Globulin 2.2 g/dL (2-4); Indirect Bilirubin 0.5 mg/dL (0.3-1.0); Magnesium 1.8 mg/dL (1.9-2.7); Phosphorus 2.6 mg/dL (2.5-5.0); Potassium 3.8 mmol/L (3.5-5.0); Total Bilirubin 0.6 mg/dL (0.2-1.0); Total Protein 6.2 g/dL (6.4-8.9)
[2018-09-07] MEDS ORDERED: Magnesium Sulfate IV* 3 GM in NS 0.9% 100 ML* 100 ML IVPB ONE (11:30)
[2018-09-07] MEDS: Ibuprofen TAB* 600 MG PO PRN ×2 (11:59→18:14)
[2018-09-07] MEDS ORDERED: Vancomycin per Pharmacy* NOTE FOLLOW UP PRN (12:37)
[2018-09-07] MEDS: Gabapentin CAP(*) 100 MG PO SCH ×2 (12:40→21:41)
--- NOTE | 2018-09-07 13:55 | DS ---
CC: Dr. Adelita Ayon; Dr. Magen Lopez; Dr. Amy Richardson; Dr. Brennan Harvey; Dr. Jorge Bradford; Dr. Yoav Padilla* DISCHARGE SUMMARY: DATE OF ADMISSION: 09/05/18 DATE OF DISCHARGE: 09/07/18 DISCHARGE DIAGNOSES: As follows: 1. Intentional Tylenol overdose. 2. Major depressive disorder causing #1. 3. Chest pain, resolved, likely due to anxiety with a low pretest probability for coronary artery disease/acute coronary syndrome with TARIK score equals 0. DISCHARGE MEDICATIONS: As follows: 1. Diphenhydramine 50 mg p.o. q.h.s. 2. Doxepin 50 mg p.o. b.i.d. 3. Gabapentin 200 mg p.o. t.i.d. 4. Hydroxyzine 50 mg p.o. q.4 p.r.n. for anxiety. 5. Ibuprofen 600 mg p.o. q.6 p.r.n. 6. Lidocaine patch 5% one patch transdermally to lower back daily. 7. Melatonin 3 mg p.o. q.h.s. 8. Oxycodone 5 mg p.o. q.6 p.r.n., 12 tabs dispensed with 0 refills. HISTORY OF PRESENT ILLNESS/HOSPITAL COURSE: The patient is a 43-year-old gentleman with history of anxiety, major depressive disorder with history of multiple [facility] admissions for suicidal attempt as well as borderline personality disorder, who took 25,000 mg total of Tylenol and was subsequently found to have elevated LFTs on admission. He was placed on a [facility] protocol for acetylcysteine IV, which he will be finishing in about 2 hours. He was placed on a one-to-one on admission and had been seen by Dr. Brett Braden of the psych department who agreed that the patient will require inpatient psychiatric hospitalization and hence will be discharged once he finishes his acetylcysteine regimen. He has been hemodynamically stable in the ICU, and LFTs have subsequently improved as well for today. He had been advised to follow up and/or call his PCP within 3 days post discharge from the [facility] and to take his medications as prescribed. He had been advised to repeat his LFTs in 4 weeks, and if his symptoms resume or develop new ones or feel unwell for any reason, he was advised to call his PCP first. If his PCP cannot entertain him due to scheduling issues alone, [facility] was [facility] if the issue is considered nonemergent. He was advised to call my office regarding any questions, concerns, or further clarifications regarding his discharge plans and/or prescriptions and to take his medications as prescribed. REVIEW OF SYSTEMS: He does complain of chronic low back pain. P.r.n. oxycodone and ibuprofen have been added to his regimen. Other than this, he denied any headaches, dizziness, fevers, chills, nausea, vomiting, chest pain, shortness of breath, increased coughing or sputum production, abdominal pain, diarrhea, constipation, pain and/or increased frequency on urination, throat pain, or new skin lesions. The rest of the 14-point review of systems is otherwise unremarkable. PHYSICAL EXAMINATION: Shows the most recent vital signs of record with blood pressure of 132/78, 97 beats per minute heart rate, 16 per minute respiratory rate, saturating at 97% on room air. General Appearance: The patient is awake , alert, and oriented x3, not in acute distress. HEENT: Normocephalic, atraumatic. PERRLA. Extraocular muscles intact. Negative for icterus. Moist oral mucosa. Negative throat erythema. Neck is soft, supple with no cervical lymphadenopathy, no JVD. Heart: S1, S2 within normal limits. Regular rate and rhythm. No murmurs, rubs, or gallops. Chest: Clear to auscultation bilaterally. Good air entry. No wheezes, rales, or rhonchi. Abdomen is soft, nondistended, nontender. Normoactive bowel sounds x4 quadrants. Extremities: No cyanosis, clubbing, or edema. TIME SPENT: The total time spent evaluating the patient, reviewing pertinent data, and appropriate documentation is 55 minutes. [id number]/[facility] #: [id number] JING
[2018-09-07] MEDS ORDERED: Gabapentin CAP(*) 300 MG PO SCH (14:00)
[2018-09-07] MEDS ORDERED: Vancomycin(*) 1,000 MG in NS 0.9% 250 ML* 250 ML IVPB SCH (18:00)
[2018-09-07] MEDS: Lidocaine Patch REMOVE* 1 NOTE MISC PATCH OFF SCH (21:42)
[2018-09-07] MEDS: oxyCODONE TAB* 5 MG TAB PO PRN (22:27)
[2018-09-07] MEDS: diPHENhydraMINE PO* 50 MG PO PRN (23:00)
[2018-09-07] MEDS: Melatonin 3 MG TAB PO PRN (23:00)
[2018-09-08] MEDS: DOXEPIN HCL 50 MG PO SCH ×3 (01:33→14:25)
[2018-09-08] MEDS: oxyCODONE TAB* 5 MG TAB PO PRN ×3 (05:36→22:08)
[2018-09-08] MEDS: Gabapentin CAP(*) 100 MG PO SCH ×3 (08:14→20:38)
[2018-09-08 08:29] LABS: Hematocrit 42 % (42-52); Hemoglobin 14.7 g/dl (14.0-18.0); Mean Corpuscular HGB Conc 35 g/dl (31-36); Mean Corpuscular Hemoglobin 31 pg (27-31); Mean Corpuscular Volume 88 fL (80-94); Mean Platelet Volume 6.7 fL (7.4-10.4); Platelet Count 209 10^3/ul (150-450); Red Blood Count 4.76 10^6/ul (4.00-5.40); Red Cell Distribution Width 13 % (10.5-15); White Blood Count 6.2 10^3/ul (3.5-10.8)
[2018-09-08 08:31] LABS: Albumin 4.2 g/dL (3.2-5.2); Albumin/Globulin Ratio 1.8 (1-3); BUN/Creatinine Ratio 16.4 (8-20); Calcium 9.5 mg/dL (8.6-10.3); EGFR African American 142.6 (>60); EGFR Non-African American 117.8 (>60); Globulin 2.3 g/dL (2-4); Phosphorus 3.5 mg/dL (2.5-5.0); Potassium 3.9 mmol/L (3.5-5.0); Total Bilirubin 0.7 mg/dL (0.2-1.0); Total Protein 6.5 g/dL (6.4-8.9)
[2018-09-08] MEDS ORDERED: Vancomycin Trough Check NOTE FOLLOW UP ONE (09:30)
[2018-09-08] MEDS: Ibuprofen TAB* 600 MG PO PRN ×2 (12:06→23:38)
[2018-09-08] MEDS: Lidocaine PATCH 5%* 1 PATCH TRANSDERM SCH (12:06)
--- NOTE | 2018-09-08 18:40 | HP ---
HISTORY AND PHYSICAL: DATE OF ADMISSION: 09/05/18 IDENTIFYING DATA: Jet is a 43-year-old male, known to this unit from prior hospitalizations, who is currently unemployed and resides with his parents. CHIEF COMPLAINT: "I don't think I will ever get better." HISTORY OF PRESENT ILLNESS: Jet was last hospitalized to this unit on 10/28 and was transferred to [facility] on 08/19/18 for ECT. He was there up until 09/02/18 when he was discharged home after 6 treatments with a hope to continue outpatient ECT. Jet decided not to pursue anymore ECT, citing "no effect" from ECT. He then became severely depressed and once again attempted suicide by taking 50 of 500 mg Tylenol. He then called the suicide hotline and was brought to the emergency room. He was eventually admitted to ICU and received treatment as per protocol and was transferred to [facility] last evening after medical clearance. On today's evaluation, Jet continues to verbalize pessimistic thoughts believing that he cannot be helped and nothing will work for him. He says he had tried all kinds of antidepressants and finally ECT. Now he does not think that anything will help him. He continues to be severely depressed with depressed mood, anhedonia, lack of motivation, and lack of desire to live any longer. However, he denies any manic, hypomanic, or psychotic symptoms. According to collaterals, he may have had a brief episode of hypomanic symptoms in the past. PAST PSYCHIATRIC HISTORY: Remarkable for prior hospitalizations here. His last hospitalization on this unit was almost under similar circumstances when he overdosed on high doses of benzodiazepines. In the past, he was tried on Lexapro, Prozac, Paxil, citalopram, Wellbutrin, duloxetine, venlafaxine, Klonopin, diazepam, Ambien, Trintellix, Lamictal, Seroquel, and so on. According to Jet, nothing helped. Please refer to a detailed history on prior treatments in Dr. Reyes's admission note/H and P done on 08/11/18. SUBSTANCE USE HISTORY: Unremarkable. PAST MEDICAL HISTORY: Status post overdose on Tylenol followed by treatment on ICU. Otherwise, no history of acute or chronic physical health conditions. ALLERGIES: No known drug allergies. FAMILY PSYCHIATRIC HISTORY: None other than alcoholism on his paternal side of the family. PERSONAL AND SOCIAL HISTORY: Jet has a master's degree, but currently unemployed. He is , but lives with his parents away from his . He was born and raised in [facility]. Although Jet denied any substance abuse history at this time, he was arrested twice in the past for public intoxication. He has 2 sons ages 10 and 7. PHYSICAL EXAMINATION GENERAL: At this time, he does not appear to be in any acute physical distress. VITAL SIGNS: This morning show a blood pressure of 85/47, pulse 96, temperature 97.7, respirations 16, O2 sat 97% in room air. Physical exam was offered and deferred per the patient's request; however, he came directly from ICU after medical clearance. Please refer to discharge progress note and physical exam done by Dr. Adelita Ayon on 09/05/18, which appears to be unremarkable. MENTAL STATUS EXAMINATION: Well built, tall, healthy-appearing male , who is appropriately dressed and fairly groomed. He is alert and oriented to time, place and person, makes poor eye contact, soft-spoken, but speech is logical and goal directed. Describes his mood as depressed. Observed affect appears to be flat. Denies any hallucinations or delusions. Intelligence appears to be average as evidenced by his educational background, vocabulary, and fund of knowledge. Memory functions are intact in all spheres. Insight and judgment appears to be impaired evidenced by his inability to understand his mental health conditions and refusing appropriate treatments recommended by experts. SUMMARY: This 43-year-old , unemployed, male with repeated psychiatric hospitalizations in the context of serious suicide attempts, was readmitted to [facility] here following a serious suicide attempt once again. DIAGNOSTIC IMPRESSION: Mental Health Diagnosis: Major depressive disorder, recurrent, severe, without psychotic features. Physical Health Diagnosis: Status post suicide attempt by overdose on Tylenol. TREATMENT RECOMMENDATIONS: Jet will remain hospitalized on [facility] for his safety and stabilization of acute symptoms. His code status will remain full. Supportive milieu, individual, and group therapy will be initiated. He will be encouraged to participate in all groups. I will continue him on all his outpatient medications for now and defer at adjustment or changes to his assigned psychiatrist on the unit. [id number]/[facility] #: [id number] [facility] HOSPITALRosemary
[2018-09-08] MEDS: diPHENhydraMINE PO* 50 MG PO PRN (20:36)
[2018-09-08] MEDS: Melatonin 3 MG TAB PO PRN (20:36)
[2018-09-08] MEDS: Lidocaine Patch REMOVE* 1 NOTE MISC PATCH OFF SCH (20:38)
[2018-09-08] MEDS: hydrOXYzine HCL TAB* 50 MG PO PRN (22:10)
[2018-09-09] MEDS: DOXEPIN HCL 50 MG PO SCH ×2 (08:29→14:05)
[2018-09-09] MEDS: Gabapentin CAP(*) 100 MG PO SCH ×3 (08:29→20:24)
[2018-09-09] MEDS: Lidocaine PATCH 5%* 1 PATCH TRANSDERM SCH (09:51)
[2018-09-09] MEDS: oxyCODONE TAB* 5 MG TAB PO PRN ×2 (09:52→16:38)
[2018-09-09] MEDS: Ibuprofen TAB* 600 MG PO PRN ×2 (12:52→19:32)
--- NOTE | 2018-09-09 16:30 | PN ---
Subjective - Subjective Date of Service: 09/09/18 Service Type: 06002 Hosp care 25 min moderate complexity Subjective: Mr Grayson reports difficulty with sleep. He also reports having difficulty maintaining a train of thought, of onset after Ativan overdose, worse perhaps since ECT. 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 Objective - Appearance Appearance: Well Developed/Nourished Dysmorphic Features: No Hygiene: Normal Grooming: Disheveled - Behavior Psychomotor Activities: Abnormal-Decreased Exhibits Abnormal Movement: No - Attitude and Relatedness Attitude and Relatedness: Cooperative Eye Contact: Fair - Speech Quality: Unpressured Latencies: Normal Quantity: Appropriate - Mood Patient's Decription of Mood: "Sad" - Affect Observed Affect: Depressed Affect Consistent with: Dysphoria - Thought Process Patient's Thought Process: Coherent, Goal Directed Thought Content: Yes Passive Wish, No Suicidal Planning, No Homicidal Ideation, No Paranoid Ideation - Sensorium Experiencing Hallucinations: No, Sensorium is Clear - Level of Consciousness Level of Consciousness: Alert Orientation: Yes Intact, Yes Orientated to Time, Yes Orientated to Place, Yes Orientated to Person - Impulse Control Impulse Control: Intact - Insight and Judgement Insight and Judgement: Poor - Medication Management Medication Management Adherence: Yes Assessment - Assessment Merits Inpatient Hospitalization: For Immediate Safety, For Stabilization, For Discharge Planning, Pending Safe DC Plan Inpatient DSM-V Dx: F33.2 Clinical Impression: Mr Grayson is a 43 year-old man readmitted shortly after discharge from ECT at [facility] for safety, assessment and treatment following overdose on Tylenol, having been medically cleared in the ICU. He is doubtful that he can get better. He cites a neck injury at age 13 as the cause of his mood disorder these past 30 years. He has tried many antidepressants and now ECT. He has also been in psychotherapy. [place] to his recovery may be finding ways to live better with chronic pain. Plan - Plan Treatment Plan: Name: SHASHA GRAYSON Birthdate: 1975 [id number] Continue current meds. Had discussed Ativan for sleep as only med he can recall as helpful for sleep, but declined due to increased risk of dependence in combination with oxycodone, necessary for managing his pain. Encouraged groups and milieu. Aftercare depending on hospital course, most likely ultimate discharge home with increased outpatient services, but could be candidate for [facility] care. Continued Medication Management: Continue Outpt Medication Medications: Current Medications Albuterol (Ventolin 2.5 Mg/3 Ml Neb.Valeria*) 2.5 mg INH [id number] AWAKE PRN PRN Reason: sob/wheezing Diphenhydramine HCl (Benadryl Po*) 50 mg PO BEDTIME PRN PRN Reason: INSOMNIA Last Admin: 09/08/18 20:36 Dose: 50 mg Doxepin HCl (Doxepin (Nf)) 50 mg PO 0800,1400 [facility] Last Admin: 09/09/18 14:05 Dose: 50 mg Gabapentin (Neurontin Cap(*)) 200 mg PO TID [facility] Last Admin: 09/09/18 14:06 Dose: 200 mg Hydroxyzine HCl (Atarax Tab*) 50 mg PO Q4H PRN PRN Reason: ANXIETY Last Admin: 09/08/18 22:10 Dose: 50 mg Ibuprofen (Motrin Tab*) 600 mg PO Q6H PRN PRN Reason: PAIN Last Admin: 09/09/18 12:52 Dose: 600 mg Lidocaine (Lidoderm 5% Patch*) 1 patch TRANSDERM DAILY [facility] Last Admin: 09/09/18 09:51 Dose: 1 patch Melatonin (Melatonin) 3 mg PO BEDTIME PRN; Protocol PRN Reason: SLEEP Last Admin: 09/08/18 20:36 Dose: 3 mg Oxycodone HCl (Roxycodone Tab*) 5 mg PO Q6H PRN PRN Reason: Breakthrough pain Last Admin: 09/09/18 09:52 Dose: 5 mg Pharmacy Profile Note (Lidocaine Patch Remove*) 1 note PATCH OFF 2100 [facility] Last Admin: 09/08/18 20:38 Dose: 1 note - Discharge Plan Discharge Plan: Consider Longer Term Tx
[2018-09-09] MEDS: hydrOXYzine HCL TAB* 50 MG PO PRN (19:48)
[2018-09-09] MEDS: Melatonin 3 MG TAB PO PRN (20:23)
[2018-09-09] MEDS: diPHENhydraMINE PO* 50 MG PO PRN (20:23)
[2018-09-09] MEDS: Lidocaine Patch REMOVE* 1 NOTE MISC PATCH OFF SCH (22:43)
[2018-09-10] MEDS: DOXEPIN HCL 50 MG PO SCH ×2 (09:26→14:17)
[2018-09-10] MEDS: Gabapentin CAP(*) 100 MG PO SCH ×2 (09:26→14:17)
[2018-09-10] MEDS: Lidocaine PATCH 5%* 1 PATCH TRANSDERM SCH (09:50)
[2018-09-10] MEDS: oxyCODONE TAB* 5 MG TAB PO PRN ×2 (12:14→18:50)
[2018-09-10] MEDS: Ibuprofen TAB* 600 MG PO PRN ×2 (14:19→21:19)
--- NOTE | 2018-09-10 15:05 | PN ---
Subjective - Subjective Date of Service: 09/10/18 Service Type: 18408 Hosp care 15 min low complexity Subjective: No change in Shasha's mental status. He continues to verbalize depressive symptoms with sadness, lack of motivation, poor attention/concentration, ongoing confusion, ambivalence and self harming thoughts. He firmly believes that he will never get better. His mother and visited and he spoke to his sons. Stays inbed most of the time. Objective - Appearance Appearance: Healthy Appearing, Obese Dysmorphic Features: No Hygiene: Normal Grooming: Well Kept - Behavior Psychomotor Activities: Normal Exhibits Abnormal Movement: No - Attitude and Relatedness Attitude and Relatedness: Cooperative Eye Contact: Fair - Speech Quality: Unpressured Latencies: Normal Quantity: Appropriate - Mood Patient's Decription of Mood: "Terrible" - Affect Observed Affect: Constricted Affect Consistent with: Dysphoria - Thought Process Patient's Thought Process: Coherent, Goal Directed Thought Content: Yes Passive Wish, No Suicidal Planning, No Homicidal Ideation, No Paranoid Ideation - Sensorium Experiencing Hallucinations: No, Sensorium is Clear Type of Hallucinations: Visual: No, Auditory: No, Command: No - Level of Consciousness Level of Consciousness: Alert Orientation: Yes Intact, Yes Orientated to Time, Yes Orientated to Place, Yes Orientated to Person - Impulse Control Impulse Control: Tenuous - Insight and Judgement Insight and Judgement: Impaired - Group Participation Particating in Group Activities: No - Medication Management Medication Management Adherence: Yes Assessment - Assessment Merits Inpatient Hospitalization: For Immediate Safety, For Stabilization, Pending Safe DC Plan Inpatient DSM-V Dx: F33.2 Clinical Impression: Mr Grayson is a 43 year-old man readmitted shortly after discharge from ECT at [facility] for safety, assessment and treatment following overdose on Tylenol, having been medically cleared in the ICU. He is doubtful that he can get better. He cites a neck injury at age 13 as the cause of his mood disorder these past 30 years. He has tried many antidepressants and now ECT. He has also been in psychotherapy. Jennings to his recovery may be finding ways to live better with chronic pain. Plan - Plan Treatment Plan: Name: SHASHA GRAYSON Birthdate: 1975 [id number] Continue current meds. Had discussed Ativan for sleep as only med he can recall as helpful for sleep, but declined due to increased risk of dependence in combination with oxycodone, necessary for managing his pain. Encouraged groups and milieu. Aftercare depending on hospital course, most likely ultimate discharge home with increased outpatient services, but could be candidate for intermediate care. Continued Medication Management: Continue Outpt Medication Medications: Current Medications Albuterol (Ventolin 2.5 Mg/3 Ml Neb.Valeria*) 2.5 mg INH [id number] AWAKE PRN PRN Reason: sob/wheezing Diphenhydramine HCl (Benadryl Po*) 50 mg PO BEDTIME PRN PRN Reason: INSOMNIA Last Admin: 09/09/18 20:23 Dose: 50 mg Doxepin HCl (Doxepin (Nf)) 50 mg PO 0800,1400 [facility] Last Admin: 09/10/18 14:17 Dose: 50 mg Gabapentin (Neurontin Cap(*)) 200 mg PO TID [facility] Last Admin: 09/10/18 14:17 Dose: 200 mg Hydroxyzine HCl (Atarax Tab*) 50 mg PO Q4H PRN PRN Reason: ANXIETY Last Admin: 09/09/18 19:48 Dose: 50 mg Ibuprofen (Motrin Tab*) 600 mg PO Q6H PRN PRN Reason: PAIN Last Admin: 09/10/18 14:19 Dose: 600 mg Lidocaine (Lidoderm 5% Patch*) 1 patch TRANSDERM DAILY [facility] Last Admin: 09/10/18 09:50 Dose: 1 patch Melatonin (Melatonin) 3 mg PO BEDTIME PRN; Protocol PRN Reason: SLEEP Last Admin: 09/09/18 20:23 Dose: 3 mg Oxycodone HCl (Roxycodone Tab*) 5 mg PO Q6H PRN PRN Reason: Breakthrough pain Last Admin: 09/10/18 12:14 Dose: 5 mg Pharmacy Profile Note (Lidocaine Patch Remove*) 1 note PATCH OFF 2100 [facility] Last Admin: 09/09/18 22:43 Dose: 1 note - Discharge Plan Discharge Plan: Outpatient Follow Up Outpatient Program: [facility]
[2018-09-10] MEDS: CMC:Doxepin (NF) 25 MG CAP PO SCH (21:19)
[2018-09-10] MEDS: Gabapentin CAP(*) 300 MG PO SCH (21:19)
[2018-09-10] MEDS: diPHENhydraMINE PO* 50 MG PO PRN (21:19)
[2018-09-10] MEDS: Melatonin 3 MG TAB PO PRN (21:19)
[2018-09-10] MEDS: Lidocaine Patch REMOVE* 1 NOTE MISC PATCH OFF SCH (23:45)
[2018-09-11] MEDS: DOXEPIN HCL 50 MG PO SCH (08:16)
[2018-09-11] MEDS: Gabapentin CAP(*) 300 MG PO SCH ×2 (08:16→20:08)
[2018-09-11] MEDS: Lidocaine PATCH 5%* 1 PATCH TRANSDERM SCH (11:23)
[2018-09-11] MEDS: hydrOXYzine HCL TAB* 50 MG PO PRN (11:23)
[2018-09-11] MEDS ORDERED: Gabapentin CAP(*) 300 MG PO PRN (12:25)
[2018-09-11] MEDS: Propranolol TAB* 20 MG PO PRN (12:51)
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
[2018-09-11] MEDS: Docusate CAP* 100 MG PO SCH ×2 (14:12→20:08)
[2018-09-11] MEDS: Ibuprofen TAB* 600 MG PO PRN (16:17)
[2018-09-11] MEDS: Melatonin 3 MG TAB PO PRN (20:07)
[2018-09-11] MEDS: diPHENhydraMINE PO* 50 MG PO PRN (20:07)
[2018-09-11] MEDS: CMC:Doxepin (NF) 25 MG CAP PO SCH (20:08)
[2018-09-11] MEDS: Lidocaine Patch REMOVE* 1 NOTE MISC PATCH OFF SCH (20:32)
[2018-09-12] MEDS: Gabapentin CAP(*) 300 MG PO SCH ×2 (08:11→20:07)
[2018-09-12] MEDS: Ibuprofen TAB* 600 MG PO PRN ×3 (08:11→20:07)
[2018-09-12] MEDS: Docusate CAP* 100 MG PO SCH ×2 (08:11→20:08)
[2018-09-12] MEDS: Lidocaine PATCH 5%* 1 PATCH TRANSDERM SCH (10:12)
--- NOTE | 2018-09-12 13:03 | PN ---
Subjective - Subjective Date of Service: 09/12/18 Service Type: 86943 Hosp care 35 min high complexity Subjective: Patient is seclusive and refusing meals. He endorses failure to thrive r/t chronic right-sided pain. He states "I don't have hope, it's not going to get better." His mother visited during our conversation and provided more history. She reports patient has significantly decompensated over the past year. 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 patient denies any of the above were enjoyable to him and expresses much frustration that "my life is not what it was supposed to be." Objective - Appearance Appearance: Well Developed/Nourished Dysmorphic Features: Yes Hygiene: Dirty Grooming: Fairly Well Kept - Behavior Psychomotor Activities: Normal Exhibits Abnormal Movement: No - Attitude and Relatedness Attitude and Relatedness: Regressed Eye Contact: Poor - Speech Quality: Unpressured Latencies: Short Quantity: Terse - Mood Patient's Decription of Mood: "Anxious" - Affect Observed Affect: Tense Affect Consistent with: Dysphoria - Thought Process Patient's Thought Process: Circumstantial, Impoverished Thought Content: Yes Passive Wish, Yes Suicidal Planning, No Homicidal Ideation, No Paranoid Ideation - Sensorium Experiencing Hallucinations: No, Sensorium is Clear Type of Hallucinations: Visual: No, Auditory: No, Command: No - Level of Consciousness Level of Consciousness: Alert Orientation: Yes Intact, Yes Orientated to Time, Yes Orientated to Place, Yes Orientated to Person - Impulse Control Impulse Control: Poor - Insight and Judgement Insight and Judgement: Impaired - Group Participation Particating in Group Activities: No - Medication Management Medication Management Adherence: Yes Assessment - Assessment Merits Inpatient Hospitalization: For Immediate Safety, For Stabilization Inpatient DSM-V Dx: F33.2 Clinical Impression: Mr Grayson is a 43 year-old man readmitted shortly [facility] for safety, assessment and treatment following overdose on Tylenol, having been medically cleared in the ICU. He continues to endorse passive wish. Patient merits hospitalization for immediate safety and stabilization. Plan - Plan Treatment Plan: Name: SHASHA GRAYSON Birthdate: 1975 [id number] continue acute intensive psychiatric treatment. encourage patient to stay out of bed during day and to attend programming. DC oxycodone and decrease doxepin to hs only. utilize propranolol prn anxiety. refer to [facility] Continued Medication Management: Different Medication Medications: Current Medications Albuterol (Ventolin 2.5 Mg/3 Ml Neb.Valeria*) 2.5 mg INH [id number] AWAKE PRN PRN Reason: sob/wheezing Diphenhydramine HCl (Benadryl Po*) 50 mg PO BEDTIME PRN PRN Reason: INSOMNIA Last Admin: 09/11/18 20:07 Dose: 50 mg Docusate Sodium (Colace Cap*) 100 mg PO BID [facility] Last Admin: 09/12/18 08:11 Dose: 100 mg Doxepin HCl (Doxepin (Nf)) 50 mg PO BEDTIME [facility] Last Admin: 09/11/18 20:08 Dose: 50 mg Gabapentin (Neurontin Cap(*)) 600 mg PO BID [facility] Last Admin: 09/12/18 08:11 Dose: 600 mg Gabapentin (Neurontin Cap(*)) 300 mg PO DAILY PRN PRN Reason: pain/anxiety Hydroxyzine HCl (Atarax Tab*) 50 mg PO Q4H PRN PRN Reason: ANXIETY Last Admin: 09/11/18 11:23 Dose: 50 mg Ibuprofen (Motrin Tab*) 600 mg PO Q6H PRN PRN Reason: PAIN Last Admin: 09/12/18 08:11 Dose: 600 mg Lidocaine (Lidoderm 5% Patch*) 1 patch TRANSDERM DAILY [facility] Last Admin: 09/12/18 10:12 Dose: 1 patch Melatonin (Melatonin) 3 mg PO BEDTIME PRN; Protocol PRN Reason: SLEEP Last Admin: 09/11/18 20:07 Dose: 3 mg Pharmacy Profile Note (Lidocaine Patch Remove*) 1 note PATCH OFF 2100 [facility] Last Admin: 09/11/18 20:32 Dose: 1 note Propranolol HCl (Inderal Tab*) 20 mg PO Q6HR PRN PRN Reason: anxiety Last Admin: 09/11/18 12:51 Dose: 20 mg - Discharge Plan Discharge Plan: Inpatient Hospitalization
[2018-09-12] MEDS: Propranolol TAB* 20 MG PO PRN (15:39)
[2018-09-12] MEDS: diPHENhydraMINE PO* 50 MG PO PRN (20:07)
[2018-09-12] MEDS: Melatonin 3 MG TAB PO PRN (20:07)
[2018-09-12] MEDS: CMC:Doxepin (NF) 25 MG CAP PO SCH (20:08)
[2018-09-12] MEDS: Lidocaine Patch REMOVE* 1 NOTE MISC PATCH OFF SCH (20:10)
[2018-09-13] MEDS: hydrOXYzine HCL TAB* 50 MG PO PRN (01:20)
[2018-09-13] MEDS: Docusate CAP* 100 MG PO SCH ×2 (08:40→20:59)
[2018-09-13] MEDS: Gabapentin CAP(*) 300 MG PO SCH (08:40)
[2018-09-13] MEDS: Lidocaine PATCH 5%* 1 PATCH TRANSDERM SCH (09:52)
[2018-09-13] MEDS ORDERED: clonazePAM TAB(*) 1 MG PO PRN (13:31)
--- NOTE | 2018-09-13 13:45 | PN ---
Subjective - Subjective Date of Service: 09/13/18 Service Type: 06474 Hosp care 35 min high complexity Subjective: patient ate snack last evening and breakfast this morning. he reports having severe sciatic pain. we review medications and identify those that he is willing to trial. patient continues to endorse hopelessness and passive wish. patient is asked to identify what it means if treatment "works" as his consistent narrative is that "nothing has worked." he endorses expectation of end of pain and depression. he repeatedly states that his life is not what he wanted it to be. junior copywriter returned call to his , Cristiana at [phone]. She inquired about concern of not eating and informed of his intake. Cristiana reports having had a therapy appt this morning and talking about Santos's consistent narrative since they met. She states that even marriage, children and other life events have not changed this perspective. She states that despite everyone supporting him, he cannot enjoy life. 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 Of note, their eldest son is near the age Santos was at the time of his injury. Objective - Appearance Appearance: Well Developed/Nourished Dysmorphic Features: Yes Assessment - Assessment Inpatient DSM-V Dx: F33.2 Clinical Impression: Mr Grayson is a 43 year-old man readmitted shortly after discharge from ECT at [facility] for safety, assessment and treatment following overdose on Tylenol, having been medically cleared in the ICU. Patient merits hospitalization for immediate safety and stabilization. Plan - Plan Treatment Plan: Name: SHASHA GRAYSON Birthdate: 1975 [id number] continue acute intensive psychiatric treatment. encourage patient to stay out of bed during day and to attend programming. DC hydroxyzine, propranolol and scheduled gabapentin. DC doxepin and change to amitriptylline to better target pain, anxiety and sleep. add klonopin 1mg BID prn anxiety. refer to [facility] Continued Medication Management: Different Medication Medications: Current Medications Albuterol (Ventolin 2.5 Mg/3 Ml Neb.Valeria*) 2.5 mg INH [id number] AWAKE PRN PRN Reason: sob/wheezing Amitriptyline HCl (Elavil Tab*) 25 mg PO BEDTIME [facility] Clonazepam (Klonopin Tab(*)) 1 mg PO TID PRN PRN Reason: ANXIETY Diphenhydramine HCl (Benadryl Po*) 50 mg PO BEDTIME PRN PRN Reason: INSOMNIA Last Admin: 09/12/18 20:07 Dose: 50 mg Docusate Sodium (Colace Cap*) 100 mg PO BID IRENE Last Admin: 09/13/18 08:40 Dose: 100 mg Gabapentin (Neurontin Cap(*)) 300 mg PO DAILY PRN PRN Reason: pain/anxiety Last Admin: 09/12/18 14:15 Dose: 300 mg Ibuprofen (Motrin Tab*) 600 mg PO Q6H PRN PRN Reason: PAIN Last Admin: 09/12/18 20:07 Dose: 600 mg Lidocaine (Lidoderm 5% Patch*) 1 patch TRANSDERM DAILY [facility] TO [facility] Last Admin: 09/13/18 09:52 Dose: 1 patch Melatonin (Melatonin) 3 mg PO BEDTIME PRN; Protocol PRN Reason: SLEEP Last Admin: 09/12/18 20:07 Dose: 3 mg Pharmacy Profile Note (Lidocaine Patch Remove*) 1 note PATCH OFF 2100 [facility] Last Admin: 09/12/18 20:10 Dose: 1 note - Discharge Plan Discharge Plan: Consider Longer Term Tx
[2018-09-13] MEDS: Ibuprofen TAB* 600 MG PO PRN ×2 (14:13→21:00)
[2018-09-13] MEDS: clonazePAM TAB(*) 1 MG PO PRN (16:41)
[2018-09-13] MEDS: Amitriptyline TAB* 25 MG PO SCH (20:59)
[2018-09-13] MEDS: Lidocaine Patch REMOVE* 1 NOTE MISC PATCH OFF SCH (21:01)
[2018-09-14] MEDS: clonazePAM TAB(*) 1 MG PO PRN ×2 (08:11→20:44)
[2018-09-14] MEDS: Ibuprofen TAB* 600 MG PO PRN ×3 (08:14→20:44)
[2018-09-14] MEDS: Docusate CAP* 100 MG PO SCH ×2 (08:21→20:41)
[2018-09-14 08:25] LABS: Albumin 4.2 g/dL (3.2-5.2); Albumin/Globulin Ratio 1.6 (1-3); Calcium 9.4 mg/dL (8.6-10.3); EGFR African American 138.2 (>60); EGFR Non-African American 114.2 (>60); Globulin 2.6 g/dL (2-4); Potassium 4.2 mmol/L (3.5-5.0); Total Bilirubin 0.5 mg/dL (0.2-1.0); Total Protein 6.8 g/dL (6.4-8.9)
[2018-09-14] MEDS: Lidocaine PATCH 5%* 1 PATCH TRANSDERM SCH (11:37)
[2018-09-14] MEDS: Amitriptyline TAB* 25 MG PO SCH (20:41)
[2018-09-14] MEDS: Lidocaine Patch REMOVE* 1 NOTE MISC PATCH OFF SCH (21:25)
[2018-09-15] MEDS: clonazePAM TAB(*) 1 MG PO PRN ×2 (08:16→20:18)
[2018-09-15] MEDS: Ibuprofen TAB* 600 MG PO PRN ×2 (08:16→20:15)
[2018-09-15] MEDS: Docusate CAP* 100 MG PO SCH ×2 (08:16→20:34)
[2018-09-15] MEDS: Lidocaine PATCH 5%* 1 PATCH TRANSDERM SCH (08:25)
[2018-09-15] MEDS: Amitriptyline TAB* 25 MG PO SCH (20:34)
[2018-09-15] MEDS: Lidocaine Patch REMOVE* 1 NOTE MISC PATCH OFF SCH (20:35)
[2018-09-16] MEDS: Ibuprofen TAB* 600 MG PO PRN ×2 (08:44→19:57)
[2018-09-16] MEDS: Docusate CAP* 100 MG PO SCH ×2 (08:44→19:55)
[2018-09-16] MEDS: clonazePAM TAB(*) 1 MG PO PRN ×2 (08:47→19:58)
[2018-09-16] MEDS: Lidocaine PATCH 5%* 1 PATCH TRANSDERM SCH (09:27)
--- NOTE | 2018-09-16 17:00 | PN ---
Subjective - Subjective Date of Service: 09/16/18 Service Type: 06307 Hosp care 15 min low complexity Subjective: Patient continues to lie in bed with the exception of meals and medications. With much prompting, he joined JANE Marti and myself to speak in corner of milieu. Patient dysphoric, sobbing and repeatedly stating a few various statements, such as: "It was supposed to be like this," "Just let me be," "no one understands." He is reluctant to engage in any treatment planning or negotiation. Figueroa and myself explained progress of treatment including pursuing treatment over objection, if warranted. Patient has been heard to say that he is planning suicide after hospitalization. Objective - Appearance Appearance: Well Developed/Nourished Dysmorphic Features: Yes Hygiene: Mal-odorous Grooming: Disheveled - Behavior Psychomotor Activities: Abnormal-Decreased - psychomotor retardation Exhibits Abnormal Movement: Yes - Attitude and Relatedness Attitude and Relatedness: Regressed Eye Contact: Poor - Speech Quality: Unpressured Latencies: Short Quantity: Terse - Mood Patient's Decription of Mood: does not answer - Affect Observed Affect: Tearful Affect Consistent with: Dysphoria - Thought Process Patient's Thought Process: Circumstantial, Impoverished Thought Content: Yes Passive Wish, Yes Suicidal Planning, No Homicidal Ideation, No Paranoid Ideation - Sensorium Experiencing Hallucinations: No, Sensorium is Clear Type of Hallucinations: Visual: No, Auditory: No, Command: No - Level of Consciousness Level of Consciousness: Alert Orientation: Yes Intact, Yes Orientated to Time, Yes Orientated to Place, Yes Orientated to Person - Impulse Control Impulse Control: Impaired - Insight and Judgement Insight and Judgement: Impaired - Group Participation Particating in Group Activities: No - Medication Management Medication Management Adherence: Yes Assessment - Assessment Merits Inpatient Hospitalization: For Immediate Safety, For Stabilization, To Initiate Treatment Inpatient DSM-V Dx: F33.2 Clinical Impression: Mr Grayson is a 43 year-old man readmitted shortly after discharge from [facility] at [facility] for safety, assessment and treatment following overdose on Tylenol, having been medically cleared in the ICU. Patient merits hospitalization for immediate safety and stabilization. Plan - Plan Treatment Plan: Name: SHASHA GRAYSON Birthdate: 1975 [id number] continue acute intensive psychiatric treatment. encourage patient to stay out of bed during day and to attend programming. increase amitriptylline to 50mg qhs. pending referral to [facility] Continued Medication Management: Start Medication Medications: Current Medications Albuterol (Ventolin 2.5 Mg/3 Ml Neb.Valeria*) 2.5 mg INH [id number] AWAKE PRN PRN Reason: sob/wheezing Amitriptyline HCl (Elavil Tab*) 50 mg PO BEDTIME IRENE Clonazepam (Klonopin Tab(*)) 1 mg PO BID PRN PRN Reason: ANXIETY Last Admin: 09/16/18 08:47 Dose: 1 mg Diphenhydramine HCl (Benadryl Po*) 50 mg PO BEDTIME PRN PRN Reason: INSOMNIA Last Admin: 09/12/18 20:07 Dose: 50 mg Docusate Sodium (Colace Cap*) 100 mg PO BID [facility] Last Admin: 09/16/18 08:44 Dose: 100 mg Gabapentin (Neurontin Cap(*)) 300 mg PO DAILY PRN PRN Reason: pain/anxiety Last Admin: 09/12/18 14:15 Dose: 300 mg Ibuprofen (Motrin Tab*) 600 mg PO Q6H PRN PRN Reason: PAIN Last Admin: 09/16/18 08:44 Dose: 600 mg Lidocaine (Lidoderm 5% Patch*) 1 patch TRANSDERM DAILY [facility] Last Admin: 09/16/18 09:27 Dose: Not Given [place] Carbonate ([place] Carbonate Tab*) 300 mg PO BID [facility] Melatonin (Melatonin) 3 mg PO BEDTIME PRN; Protocol PRN Reason: SLEEP Last Admin: 09/12/18 20:07 Dose: 3 mg Pharmacy Profile Note (Lidocaine Patch Remove*) 1 note PATCH OFF 2100 [facility] Last Admin: 09/15/18 20:35 Dose: Not Given - Discharge Plan Discharge Plan: Consider Longer Term Tx
[2018-09-16] MEDS: Lithium Carbonate TAB* 300 MG PO SCH (19:56)
[2018-09-16] MEDS: Amitriptyline TAB* 50 MG PO SCH (19:56)
[2018-09-16] MEDS: Lidocaine Patch REMOVE* 1 NOTE MISC PATCH OFF SCH (19:59)
[2018-09-17] MEDS: Docusate CAP* 100 MG PO SCH ×2 (08:12→20:03)
[2018-09-17] MEDS: clonazePAM TAB(*) 1 MG PO PRN (08:12)
[2018-09-17] MEDS: Ibuprofen TAB* 600 MG PO PRN ×2 (08:12→20:03)
[2018-09-17] MEDS: Lithium Carbonate TAB* 300 MG PO SCH ×2 (08:13→20:39)
--- NOTE | 2018-09-17 11:46 | PN ---
Subjective - Subjective Date of Service: 09/17/18 Service Type: 80848 Hosp care 15 min low complexity Subjective: patient continues to refuse to engage in treatment. he is refusing lithium, accepting other medications. He tells staff he is safe here, continues to endorse plan to suicide. Pt notified of team decision to implement behavior modification plan. Objective - Appearance Appearance: Well Developed/Nourished Dysmorphic Features: Yes Hygiene: Mal-odorous Grooming: Fairly Well Kept - Behavior Psychomotor Activities: Normal Exhibits Abnormal Movement: No - Attitude and Relatedness Attitude and Relatedness: Regressed Eye Contact: Poor - Speech Quality: Unpressured Latencies: Short Quantity: Terse - Mood Patient's Decription of Mood: "Anxious" - Affect Observed Affect: Depressed Affect Consistent with: Dysphoria - Thought Process Patient's Thought Process: Impoverished Thought Content: Yes Passive Wish, Yes Suicidal Planning, No Homicidal Ideation, No Paranoid Ideation - Sensorium Experiencing Hallucinations: No, Sensorium is Clear Type of Hallucinations: Visual: No, Auditory: No, Command: No - Level of Consciousness Level of Consciousness: Alert Orientation: Yes Intact, Yes Orientated to Time, Yes Orientated to Place, Yes Orientated to Person - Impulse Control Impulse Control: Intact - Insight and Judgement Insight and Judgement: Impaired - Group Participation Particating in Group Activities: No - Medication Management Medication Management Adherence: Partial Assessment - Assessment Inpatient DSM-V Dx: F33.2 Clinical Impression: Mr Grayson is a 43 year-old man readmitted shortly after discharge from ECT at [facility] for safety, assessment and treatment following overdose on Tylenol, having been medically cleared in the ICU. Patient merits hospitalization for immediate safety and stabilization. Plan - Plan Treatment Plan: Name: SHASHA GRAYSON Birthdate: 1975 [id number] continue acute intensive psychiatric treatment. implement behavior modification plan. hold clonazepam. pending referral to [facility] Continued Medication Management: Start Medication Medications: Current Medications Albuterol (Ventolin 2.5 Mg/3 Ml Neb.Valeria*) 2.5 mg INH [id number] AWAKE PRN PRN Reason: sob/wheezing Amitriptyline HCl (Elavil Tab*) 50 mg PO BEDTIME IRENE Last Admin: 09/16/18 19:56 Dose: 50 mg Diphenhydramine HCl (Benadryl Po*) 50 mg PO BEDTIME PRN PRN Reason: INSOMNIA Last Admin: 09/12/18 20:07 Dose: 50 mg Docusate Sodium (Colace Cap*) 100 mg PO BID [facility] Last Admin: 09/17/18 08:12 Dose: 100 mg Gabapentin (Neurontin Cap(*)) 300 mg PO DAILY PRN PRN Reason: pain/anxiety Last Admin: 09/12/18 14:15 Dose: 300 mg Ibuprofen (Motrin Tab*) 600 mg PO Q6H PRN PRN Reason: PAIN Last Admin: 09/17/18 08:12 Dose: 600 mg Lidocaine (Lidoderm 5% Patch*) 1 patch TRANSDERM DAILY [facility] Last Admin: 09/16/18 09:27 Dose: Not Given [place] Carbonate ([place] Carbonate Tab*) 300 mg PO BID [facility] Last Admin: 09/17/18 08:13 Dose: Not Given Melatonin (Melatonin) 3 mg PO BEDTIME PRN; Protocol PRN Reason: SLEEP Last Admin: 09/12/18 20:07 Dose: 3 mg Pharmacy Profile Note (Lidocaine Patch Remove*) 1 note PATCH OFF 2100 [facility] Last Admin: 09/16/18 19:59 Dose: Not Given - Discharge Plan Discharge Plan: Consider Longer Term Tx
[2018-09-17] MEDS: Amitriptyline TAB* 50 MG PO SCH (20:03)
[2018-09-17] MEDS: Lidocaine Patch REMOVE* 1 NOTE MISC PATCH OFF SCH (20:04)
[2018-09-18] MEDS: Docusate CAP* 100 MG PO SCH ×2 (08:07→20:09)
[2018-09-18] MEDS: Ibuprofen TAB* 600 MG PO PRN ×2 (08:07→20:09)
[2018-09-18] MEDS: Lithium Carbonate TAB* 300 MG PO SCH ×2 (08:08→22:17)
[2018-09-18] MEDS: Lidocaine PATCH 5%* 1 PATCH TRANSDERM SCH (08:09)
--- NOTE | 2018-09-18 11:41 | PN ---
Subjective - Subjective Service Type: 13218 Psychotherapy - Individual Psychotherapy Note ([id number]) : Enrique initiated discussion after attending group led by this engineering technical writer. He expressed apprehension about impending transfer to a state facility, with discussion following regarding his sense of loss about self identity secondary to injury sustained to his arm while playing football when 13 years of age. 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 He describes a sense of hopelessness repeatedly and quite forcefully at times. Intervention discussed inhibited grieving process regarding his injury and subsequent diminshed self identity. He responded poorly to discussion addressing behavioral activation, expressing resentment about staff pulling his mattress, with follow up intervention addressing importance of social engagement and empathic response, especially in the context of his familial role. He remains profoundly despondent and hopeless at present. Assessment - Assessment Inpatient DSM-V Dx: F33.2 Clinical Impression: Mr Grayson is a 43 year-old man readmitted shortly after discharge from [facility] at [facility] for safety, assessment and treatment following overdose on Tylenol, having been medically cleared in the ICU. Patient merits hospitalization for immediate safety and stabilization. Plan - Plan Treatment Plan: Name: SHASHA GRAYSON Birthdate: 1975 [id number] continue acute intensive psychiatric treatment. implement behavior modification plan. hold clonazepam. pending referral to pending sale to [facility] Medications: Current Medications Albuterol (Ventolin 2.5 Mg/3 Ml Neb.Valeria*) 2.5 mg INH [id number] AWAKE PRN PRN Reason: sob/wheezing Amitriptyline HCl (Elavil Tab*) 50 mg PO BEDTIME [facility] Last Admin: 09/17/18 20:03 Dose: 50 mg Diphenhydramine HCl (Benadryl Po*) 50 mg PO BEDTIME PRN PRN Reason: INSOMNIA Last Admin: 09/12/18 20:07 Dose: 50 mg Docusate Sodium (Colace Cap*) 100 mg PO BID [facility] Last Admin: 09/18/18 08:07 Dose: 100 mg Gabapentin (Neurontin Cap(*)) 300 mg PO DAILY PRN PRN Reason: pain/anxiety Last Admin: 09/12/18 14:15 Dose: 300 mg Ibuprofen (Motrin Tab*) 600 mg PO Q6H PRN PRN Reason: PAIN Last Admin: 09/18/18 08:07 Dose: 600 mg Lidocaine (Lidoderm 5% Patch*) 1 patch TRANSDERM DAILY [facility] Last Admin: 09/18/18 08:09 Dose: Not Given [place] Carbonate ([place] Carbonate Tab*) 300 mg PO BID [facility] Last Admin: 09/18/18 08:08 Dose: Not Given Melatonin (Melatonin) 3 mg PO BEDTIME PRN; Protocol PRN Reason: SLEEP Last Admin: 09/12/18 20:07 Dose: 3 mg Pharmacy Profile Note (Lidocaine Patch Remove*) 1 note PATCH OFF 2100 [facility] Last Admin: 09/17/18 20:04 Dose: Not Given
--- NOTE | 2018-09-18 12:52 | PN ---
MHU: Group Therapy Note - Service Type Service Type: 99988 Group Psychotherapy - Cognitive Behavioral Group Therapy ( CBT):Patient attended CBT programming this morning and presented with flat affect that did not vary with discussion. Although responsive to direct prompts to respond to questions, patient did not engage in spontaneous conversation.
--- NOTE | 2018-09-18 16:15 | PN ---
Subjective - Subjective Date of Service: 09/18/18 Service Type: 67218 Hosp care 25 min moderate complexity Subjective: Patient notified of team pursuing treatment over objection and rationale. He asks further questions about legal proceedings and is referred to speak with [facility]. Patient's mother present at visiting hours and updated with treatment plan. She inquired about lithium and rfp writer informed of low dose with plan to titrate. Dietary Server phoned , Cristiana, at [phone]. Discussed above plan and rfp writer answered questions about her level of involvement in his care. She endorses feeling conflicted about visiting him and basically described fear of his condition worsening if she does not. Dietary Server encouraged Cristiana to visit when she is available and when is convenient for her and their children. Objective - Appearance Appearance: Well Developed/Nourished Dysmorphic Features: No Hygiene: Normal Grooming: Fairly Well Kept - Behavior Psychomotor Activities: Normal Exhibits Abnormal Movement: No - Attitude and Relatedness Attitude and Relatedness: Irritable Eye Contact: Poor - Speech Quality: Unpressured Latencies: Short Quantity: Terse - Mood Patient's Decription of Mood: "Upset" - Affect Observed Affect: Tense Affect Consistent with: Dysphoria - Thought Process Patient's Thought Process: Circumstantial, Impoverished Thought Content: Yes Passive Wish, Yes Suicidal Planning, No Homicidal Ideation, No Paranoid Ideation - Sensorium Experiencing Hallucinations: No, Sensorium is Clear Type of Hallucinations: Visual: No, Auditory: No, Command: No - Level of Consciousness Level of Consciousness: Alert Orientation: Yes Intact, Yes Orientated to Time, Yes Orientated to Place, Yes Orientated to Person - Impulse Control Impulse Control: Poor - Insight and Judgement Insight and Judgement: Impaired - Group Participation Particating in Group Activities: No - Medication Management Medication Management Adherence: Partial Assessment - Assessment Merits Inpatient Hospitalization: For Immediate Safety, For Stabilization Inpatient DSM-V Dx: F33.2 Clinical Impression: Mr Grayson is a 43 year-old man readmitted shortly after discharge from ECT at [facility] for safety, assessment and treatment following overdose on Tylenol, having been medically cleared in the ICU. Patient merits hospitalization for immediate safety and stabilization. Plan - Plan Treatment Plan: Name: SHASHA GRAYSON Birthdate: 1975 [id number] continue acute intensive psychiatric treatment. legal status converted to 9.27, 2PC. implement behavior modification plan. pending referral to [facility] pursue Treatment Over Objection. Continued Medication Management: Start Medication Medications: Current Medications Albuterol (Ventolin 2.5 Mg/3 Ml Neb.Valeria*) 2.5 mg INH [id number] AWAKE PRN PRN Reason: sob/wheezing Amitriptyline HCl (Elavil Tab*) 50 mg PO BEDTIME [facility] Last Admin: 09/17/18 20:03 Dose: 50 mg Diphenhydramine HCl (Benadryl Po*) 50 mg PO BEDTIME PRN PRN Reason: INSOMNIA Last Admin: 09/12/18 20:07 Dose: 50 mg Docusate Sodium (Colace Cap*) 100 mg PO BID [facility] Last Admin: 09/18/18 08:07 Dose: 100 mg Gabapentin (Neurontin Cap(*)) 300 mg PO DAILY PRN PRN Reason: pain/anxiety Last Admin: 09/12/18 14:15 Dose: 300 mg Ibuprofen (Motrin Tab*) 600 mg PO Q6H PRN PRN Reason: PAIN Last Admin: 09/18/18 08:07 Dose: 600 mg Lidocaine (Lidoderm 5% Patch*) 1 patch TRANSDERM DAILY [facility] Last Admin: 09/18/18 08:09 Dose: Not Given [place] Carbonate ([place] Carbonate Tab*) 300 mg PO BID [facility] Last Admin: 09/18/18 08:08 Dose: Not Given Melatonin (Melatonin) 3 mg PO BEDTIME PRN; Protocol PRN Reason: SLEEP Last Admin: 09/12/18 20:07 Dose: 3 mg Pharmacy Profile Note (Lidocaine Patch Remove*) 1 note PATCH OFF 2100 [facility] Last Admin: 09/17/18 20:04 Dose: Not Given - Discharge Plan Discharge Plan: Consider Longer Term Tx
[2018-09-18] MEDS: Amitriptyline TAB* 50 MG PO SCH (20:09)
[2018-09-18] MEDS: Lidocaine Patch REMOVE* 1 NOTE MISC PATCH OFF SCH (22:19)
[2018-09-19] MEDS: Lidocaine PATCH 5%* 1 PATCH TRANSDERM SCH ×2 (03:28→08:08)
[2018-09-19] MEDS: Ibuprofen TAB* 600 MG PO PRN ×2 (08:07→15:49)
[2018-09-19] MEDS: Docusate CAP* 100 MG PO SCH ×2 (08:08→20:09)
[2018-09-19] MEDS: Lithium Carbonate TAB* 300 MG PO SCH ×2 (08:08→20:10)
--- NOTE | 2018-09-19 12:08 | PN ---
MHU: Group Therapy Note - Service Type Service Type: 97181 Group Psychotherapy - Cognitive Behavioral Group Therapy ( CBT):Patient was attentive and participatory in CBT programming this morning, and remained in good behavioral control. Patient expressed positive insights regarding relevant treatment interventions and goals.
[2018-09-19] MEDS: Lidocaine Patch REMOVE* 1 NOTE MISC PATCH OFF SCH (20:00)
[2018-09-19] MEDS: Amitriptyline TAB* 50 MG PO SCH (20:09)
[2018-09-19] MEDS: Melatonin 3 MG TAB PO PRN (23:30)
[2018-09-19] MEDS: diPHENhydraMINE PO* 50 MG PO PRN (23:30)
[2018-09-20] MEDS: Ibuprofen TAB* 600 MG PO PRN ×3 (08:14→20:41)
[2018-09-20] MEDS: Docusate CAP* 100 MG PO SCH ×2 (08:14→20:41)
[2018-09-20] MEDS: Lithium Carbonate TAB* 300 MG PO SCH ×2 (08:14→20:41)
--- NOTE | 2018-09-20 11:22 | PN ---
MHU: Group Therapy Note - Service Type Service Type: [id number] Group Psychotherapy - Cognitive Behavioral Group Therapy ( CBT):Patient was attentive and participatory in CBT programming this morning, and remained in good behavioral control. Patient expressed positive insights regarding relevant treatment interventions and goals.
--- NOTE | 2018-09-20 13:20 | PN ---
Subjective - Subjective Service Type: 81714 Psychotherapy - Inidvidual Psychotherapy Note: Enrique initiated further discussion regarding subjective report of depression. He continues to perseverate on his injury, stating "I will not get better", remaining very defended in this belief when discussion encouraged him to consider the difference between maintaining this belief versus setting immediate goals for his recovery. Discussion addressed reasoning regarding referral to a [facility] for continuing treatment, citing concerns for his safety and perceived need for longer term treatment. He was encouraged to join a process of recovery, and initiate contact with family. Assessment - Assessment Inpatient DSM-V Dx: F33.2 Clinical Impression: Mr Grayson is a 43 year-old man readmitted shortly after discharge from [facility] at [facility] for safety, assessment and treatment following overdose on Tylenol, having been medically cleared in the ICU. Patient merits hospitalization for immediate safety and stabilization. Plan - Plan Treatment Plan: Name: SHASHA GRAYSON Birthdate: 1975 [id number] continue acute intensive psychiatric treatment. legal status converted to 9.27, 2PC. implement behavior modification plan. pending referral to [facility] pursue Treatment Over Objection. Medications: Current Medications Albuterol (Ventolin 2.5 Mg/3 Ml Neb.Valeria*) 2.5 mg INH [id number] AWAKE PRN PRN Reason: sob/wheezing Amitriptyline HCl (Elavil Tab*) 50 mg PO BEDTIME [facility] Last Admin: 09/19/18 20:09 Dose: 50 mg Diphenhydramine HCl (Benadryl Po*) 50 mg PO BEDTIME PRN PRN Reason: INSOMNIA Last Admin: 09/19/18 23:30 Dose: 50 mg Docusate Sodium (Colace Cap*) 100 mg PO BID [facility] Last Admin: 09/20/18 08:14 Dose: 100 mg Gabapentin (Neurontin Cap(*)) 300 mg PO DAILY PRN PRN Reason: pain/anxiety Last Admin: 09/12/18 14:15 Dose: 300 mg Ibuprofen (Motrin Tab*) 600 mg PO Q6H PRN PRN Reason: PAIN Last Admin: 09/20/18 08:14 Dose: 600 mg Lidocaine (Lidoderm 5% Patch*) 1 patch TRANSDERM DAILY [facility] Last Admin: 09/19/18 08:08 Dose: Not Given [place] Carbonate ([place] Carbonate Tab*) 300 mg PO BID [facility] Last Admin: 09/20/18 08:14 Dose: 300 mg Melatonin (Melatonin) 3 mg PO BEDTIME PRN; Protocol PRN Reason: SLEEP Last Admin: 09/19/18 23:30 Dose: 3 mg Pharmacy Profile Note (Lidocaine Patch Remove*) 1 note PATCH OFF 2100 [facility] Last Admin: 09/19/18 20:00 Dose: Not Given
--- NOTE | 2018-09-20 14:09 | PN ---
Subjective - Subjective Date of Service: 09/20/18 Service Type: 11922 Hosp care 15 min low complexity Subjective: Patient is showing increased participation in programming and agrees to continue to do so. He reports anxiety and inquires about provider's discontinuation of clonazepam. Much education done regarding past ineffective trials of benzodiazepine and potential for dependence. He is encouraged to utilize current prn medications and to continue to remain out of bed during the day. He states understanding of TOO process and state referral. Patient endorses a desire to "turn things around" and to eventually return to his family but is quick to relay that he does not think he is able to do so. He agrees to work on CBT cognitive distortions worksheets over the weekend. patient encouraged to utilize staff members to assist if needed. Objective - Appearance Appearance: Well Developed/Nourished Dysmorphic Features: Yes Hygiene: Normal Grooming: Fairly Well Kept - Behavior Psychomotor Activities: Normal Exhibits Abnormal Movement: No - Attitude and Relatedness Attitude and Relatedness: Cooperative Eye Contact: Fair - Speech Quality: Unpressured Latencies: Short Quantity: Terse - Mood Patient's Decription of Mood: "Okay" - Affect Observed Affect: Depressed Affect Consistent with: Dysphoria - Thought Process Patient's Thought Process: Impoverished Thought Content: Yes Passive Wish, No Suicidal Planning, No Homicidal Ideation, No Paranoid Ideation - Sensorium Experiencing Hallucinations: No, Sensorium is Clear Type of Hallucinations: Visual: No, Auditory: No, Command: No - Level of Consciousness Level of Consciousness: Alert Orientation: Yes Intact, Yes Orientated to Time, Yes Orientated to Place, Yes Orientated to Person - Impulse Control Impulse Control: Poor - Insight and Judgement Insight and Judgement: Impaired - Group Participation Particating in Group Activities: Yes - Medication Management Medication Management Adherence: Partial Assessment - Assessment Merits Inpatient Hospitalization: For Immediate Safety, For Stabilization Inpatient DSM-V Dx: F33.2 Clinical Impression: Mr Grayson is a 43 year-old man readmitted shortly after discharge from [facility] at [facility] for safety, assessment and treatment following overdose on Tylenol, having been medically cleared in the ICU. Patient merits hospitalization for immediate safety and stabilization. He is pending a referral to [facility] and [facility] is pursuing Treatment Over Objection. Plan - Plan Treatment Plan: Name: SHASHA GRAYSON Birthdate: 1975 [id number] continue acute intensive psychiatric treatment. legal status converted to 9.27, 2PC. increase HS dose amitriptyline and increase gabapentin to 300mg TID prn anxiety/ pain. continue behavior modification plan. pending referral to [facility] pursue Treatment Over Objection, court date assigned 09/25/18. Medications: Current Medications Albuterol (Ventolin 2.5 Mg/3 Ml Neb.Valeria*) 2.5 mg INH [id number] AWAKE PRN PRN Reason: sob/wheezing Amitriptyline HCl (Elavil Tab*) 50 mg PO BEDTIME [facility] Last Admin: 09/19/18 20:09 Dose: 50 mg Diphenhydramine HCl (Benadryl Po*) 50 mg PO BEDTIME PRN PRN Reason: INSOMNIA Last Admin: 09/19/18 23:30 Dose: 50 mg Docusate Sodium (Colace Cap*) 100 mg PO BID [facility] Last Admin: 09/20/18 08:14 Dose: 100 mg Gabapentin (Neurontin Cap(*)) 300 mg PO DAILY PRN PRN Reason: pain/anxiety Last Admin: 09/12/18 14:15 Dose: 300 mg Ibuprofen (Motrin Tab*) 600 mg PO Q6H PRN PRN Reason: PAIN Last Admin: 09/20/18 08:14 Dose: 600 mg Lidocaine (Lidoderm 5% Patch*) 1 patch TRANSDERM DAILY [facility] Last Admin: 09/19/18 08:08 Dose: Not Given [place] Carbonate ([place] Carbonate Tab*) 300 mg PO BID [facility] Last Admin: 09/20/18 08:14 Dose: 300 mg Melatonin (Melatonin) 3 mg PO BEDTIME PRN; Protocol PRN Reason: SLEEP Last Admin: 09/19/18 23:30 Dose: 3 mg Pharmacy Profile Note (Lidocaine Patch Remove*) 1 note PATCH OFF [address] [facility] Last Admin: 09/19/18 20:00 Dose: Not Given - Discharge Plan Discharge Plan: Consider Longer Term Tx
[2018-09-20] MEDS: Lidocaine PATCH 5%* 1 PATCH TRANSDERM SCH (15:17)
--- NOTE | 2018-09-20 17:44 | CONS ---
PSYCHOLOGICAL REPORT: DATE OF CONSULT: 09/20/18 CODE: [id number] REASON FOR REFERRAL: Jet was referred for further personality testing at the request of Dr. Wetzel in consideration for and transfer to [facility]. Questions revolve around severity of depression and characterological vulnerabilities, which may be contributing factors. TESTS ADMINISTERED: Jet completed the [place] Multiphasic Personality Inventory-2 (MMPI-2) and was given feedback in an individual conversation regarding rest results, which included comparison of his prior administration of the MMPI-2 in July 2014 during the prior admission at this facility. RELEVANT HISTORY: Jet is now 43 years of age and has been from his and 2 children, living with his parents. He has persisting depressive features including suicidality. He was admitted secondary to suicide attempt that involved taking 50 of 500 mg pills of Tylenol. However, he self-preserved and called the suicide hotline and was brought to the emergency department for evaluation and then admitted to this unit after being in the ICU after being medically cleared. During his initial several days on the unit, Jet remained very isolated in his room, only coming out for meals and medications. He avoided both groups as well as individual conversation. He became more active with repeated staff direction to come out of his room to some degree, but finally staff decided to pull his mattress from his room to compel him out of this isolation. Jet continues to present with very flat and invariable affect, presenting with a very intense relatedness with eye contact and repeated statements about not getting better. Jet remains very difficult to engage in forward thinking interventions, seeming to perseverate on an injury sustained when he was 14 years of age playing football. He describes still experiencing sequelae from this injury citing how his hands are often cold and he experiences pain on his right side. Further he describes his investment in wanting to be musician before the injury occurred. Apparently, the injury affected fine motor skills to the point where he could not play instruments as he had before. Jet tends to repeat a statement that "I am not who I am supposed to be," feeling that he should have been someone else and continues to remain dysphoric about his perceived loss of function and ability to express his creativity. Jet remains and has 2 children, ages 11 and 8. He describes his is historically being supportive, but he describes after felt like he could not function anymore. He continues to have visits with his , although he describes it is difficult for her to come in because she has to find people to watch the children. Jet has fairly recently obtained the masters degree in a creative writing program. He describes writing his theses about his walk on the [place] and writing of his depression. TEST RESULTS: Jet attained essentially equivocal scoring to his prior admission to the MMPI-2, which was reflective of high endorsement of cynical and pessimistic thoughts and beliefs which in turn elevates all of the clinical indices except the hypomania scale. Depression and anxiety remained the primary elevations, but the clinical indices where he scores in a very high range (T=105). He elevates the neurotic triad, which is reflective of his endorsement of his physical symptoms as well as propensity towards repression as his primary defence mechanism. Such persons often internalize negative affect and experience increased acute symptomatology in terms of endorsement of physical pain and discomfort. He elevates the psychoticism scales including 2 scales that are reflective of anger as well. In short, testing is thought to be reflective of concerns regarding narcissistic proclivities. IMPRESSION AND RECOMMENDATIONS: Jet moreland remains very stuck in his emphasis on the pervasive effect that this injury has had on his life in a very comprehensive fashion. In conversation, this theme becomes a perseveration. Confrontational interventions which Jet have encouraged him to began to think of future-oriented prospects and to change thematic content of his conversation. He became quite agitated in this conversation, but remains very intensely related, effecting a rather hostile dependency that is not constructive. Jet has great difficulty in effecting an empathic relation to staff and peers even when in the context of very intimate discussion of his relevant history and current thoughts and feelings. Other interventions have encouraged him to began to differentiate between what his beliefs are and what his possibilities are. For instance, he feels strongly that his football injury occurring at 14 years of age continues to have a debilitating effect on his prospects. He almost refuses to contemplate any other possibility at this point in time. Clinical recommendations have began the pivot towards long-term treatment secondary to ongoing concerns regarding lethality both in terms of Jet's presentation as well as his endorsement of continuing suicidal thoughts. His hopelessness particularly is quite jarring. DIAGNOSTIC IMPRESSION: Continues to support major depressive disorder, severe without psychosis, with narcissistic personality traits. [id number]/[facility] #: [id number] JING
[2018-09-20] MEDS: Gabapentin CAP(*) 300 MG PO PRN (19:26)
[2018-09-20] MEDS: Amitriptyline TAB* 25 MG PO SCH (20:39)
[2018-09-20] MEDS: Melatonin 3 MG TAB PO PRN (20:42)
[2018-09-20] MEDS: diPHENhydraMINE PO* 50 MG PO PRN (20:42)
[2018-09-21] MEDS: Ibuprofen TAB* 600 MG PO PRN ×2 (08:25→17:13)
[2018-09-21] MEDS: Docusate CAP* 100 MG PO SCH ×2 (08:25→20:27)
[2018-09-21] MEDS: Lithium Carbonate TAB* 300 MG PO SCH ×2 (08:25→20:27)
[2018-09-21] MEDS: diPHENhydraMINE PO* 50 MG PO PRN (20:26)
[2018-09-21] MEDS: Melatonin 3 MG TAB PO PRN (20:26)
[2018-09-21] MEDS: Amitriptyline TAB* 25 MG PO SCH (20:27)
[2018-09-22] MEDS: Docusate CAP* 100 MG PO SCH ×2 (08:20→20:21)
[2018-09-22] MEDS: Lithium Carbonate TAB* 300 MG PO SCH ×2 (08:20→20:21)
[2018-09-22] MEDS: Ibuprofen TAB* 600 MG PO PRN ×2 (10:30→20:20)
[2018-09-22] MEDS: Gabapentin CAP(*) 300 MG PO PRN (17:24)
[2018-09-22] MEDS: Amitriptyline TAB* 25 MG PO SCH (20:21)
[2018-09-22] MEDS: diPHENhydraMINE PO* 50 MG PO PRN (20:21)
[2018-09-22] MEDS: Melatonin 3 MG TAB PO PRN (20:21)
[2018-09-23] MEDS: Lithium Carbonate TAB* 300 MG PO SCH ×2 (08:18→20:04)
[2018-09-23] MEDS: Docusate CAP* 100 MG PO SCH ×2 (08:18→20:04)
[2018-09-23] MEDS: Ibuprofen TAB* 600 MG PO PRN ×2 (08:19→17:56)
--- NOTE | 2018-09-23 11:25 | PN ---
MHU: Group Therapy Note - Service Type Service Type: 84751 Group Psychotherapy - CBT group note: Jet was attentive and participatory in a small group with interactive discussion. He continues to endorse intrusive difficulties with depression and anxiety, describing an intractable sense of hopelessness, coupled with resentment regarding referral to longer term treatment facility.
[2018-09-23] MEDS: cloNIDine TAB* 0.1 MG PO SCH ×2 (12:59→20:04)
--- NOTE | 2018-09-23 14:01 | PN ---
Subjective - Subjective Date of Service: 09/23/18 Service Type: 22403 Hosp care 25 min moderate complexity Subjective: Santos reviewed some materials from weekend groups with proposal manager writer. He identifies ruminating about an interaction with previous employer that was "embarrassing." He is able to vocalize feedback he would give his son or friend in a similar scenario. We discuss impact of being overly critical of self and pt is receptive to this. He endorses difficulty reading and organizing thoughts. He reports some improvement in sleep. Patient reports sensation of numbness/tingling and hypersensitivity to cold in fingers. + Cap refill, warm to touch. color reflects adequate perfusion. Patient given feedback about improved presentation and validated for efforts. Objective - Appearance Appearance: Well Developed/Nourished Dysmorphic Features: Yes Hygiene: Normal Grooming: Well Kept - Behavior Psychomotor Activities: Normal Exhibits Abnormal Movement: No - Attitude and Relatedness Attitude and Relatedness: Cooperative Eye Contact: Fair - Speech Quality: Unpressured Latencies: Short Quantity: Appropriate - Mood Patient's Decription of Mood: "Anxious" - Affect Observed Affect: Depressed Affect Consistent with: Dysphoria - Thought Process Patient's Thought Process: Coherent, Goal Directed Thought Content: Yes Passive Wish, No Suicidal Planning, No Homicidal Ideation, No Paranoid Ideation - Sensorium Experiencing Hallucinations: No, Sensorium is Clear Type of Hallucinations: Visual: No, Auditory: No, Command: No - Level of Consciousness Level of Consciousness: Alert Orientation: Yes Intact, Yes Orientated to Time, Yes Orientated to Place, Yes Orientated to Person - Impulse Control Impulse Control: Intact - Insight and Judgement Insight and Judgement: Poor - Group Participation Particating in Group Activities: Yes - Medication Management Medication Management Adherence: Yes Assessment - Assessment Merits Inpatient Hospitalization: For Immediate Safety, For Stabilization Inpatient DSM-V Dx: F33.2 Clinical Impression: Mr Grayson is a 43 year-old man readmitted shortly after discharge from [facility] at [facility] for safety, assessment and treatment following overdose on Tylenol, having been medically cleared in the ICU. Patient merits hospitalization for immediate safety and stabilization. He is pending a referral to [facility] and [facility] is pursuing Treatment Over Objection. Plan - Plan Treatment Plan: Name: SHASHA GRAYSON Birthdate: 1975 [id number] continue acute intensive psychiatric treatment. legal status converted to 9.27, 2PC. add clonidine for anxiety. continue behavior modification plan. pending referral to [facility] pursue Treatment Over Objection, court date assigned 09/25/18. Continued Medication Management: Start Medication Medications: Current Medications Albuterol (Ventolin 2.5 Mg/3 Ml Neb.Valeria*) 2.5 mg INH [id number] AWAKE PRN PRN Reason: sob/wheezing Amitriptyline HCl (Elavil Tab*) 75 mg PO BEDTIME [facility] Last Admin: 09/22/18 20:21 Dose: 75 mg Clonidine HCl (Catapres Tab*) 0.1 mg PO BID [facility] Last Admin: 09/23/18 12:59 Dose: 0.1 mg Diphenhydramine HCl (Benadryl Po*) 50 mg PO BEDTIME PRN PRN Reason: INSOMNIA Last Admin: 09/22/18 20:21 Dose: 50 mg Docusate Sodium (Colace Cap*) 100 mg PO BID [facility] Last Admin: 09/23/18 08:18 Dose: 100 mg Gabapentin (Neurontin Cap(*)) 300 mg PO TID PRN PRN Reason: pain/anxiety Last Admin: 09/22/18 17:24 Dose: 300 mg Ibuprofen (Motrin Tab*) 600 mg PO Q6H PRN PRN Reason: PAIN Last Admin: 09/23/18 08:19 Dose: 600 mg [place] Carbonate ([place] Carbonate Tab*) 300 mg PO BID [facility] Last Admin: 09/23/18 08:18 Dose: 300 mg Melatonin (Melatonin) 3 mg PO BEDTIME PRN; Protocol PRN Reason: SLEEP Last Admin: 09/22/18 20:21 Dose: 3 mg - Discharge Plan Discharge Plan: Consider Longer Term Tx
[2018-09-23] MEDS: Gabapentin CAP(*) 300 MG PO PRN (14:29)
[2018-09-23] MEDS: Amitriptyline TAB* 25 MG PO SCH (20:03)
[2018-09-23] MEDS: diPHENhydraMINE PO* 50 MG PO PRN (20:04)
[2018-09-23] MEDS: Melatonin 3 MG TAB PO PRN (20:04)
[2018-09-24] MEDS: Docusate CAP* 100 MG PO SCH ×2 (08:21→20:29)
[2018-09-24] MEDS: cloNIDine TAB* 0.1 MG PO SCH (08:21)
[2018-09-24] MEDS: Lithium Carbonate TAB* 300 MG PO SCH (08:21)
[2018-09-24] MEDS: Ibuprofen TAB* 600 MG PO PRN ×2 (08:21→17:54)
--- NOTE | 2018-09-24 11:29 | PN ---
MHU: Group Therapy Note - Service Type Service Type: 48715 Group Psychotherapy - Cognitive Behavioral Group Therapy ( CBT):Patient was attentive and participatory in CBT programming this morning, and remained in good behavioral control. Patient expressed positive insights regarding relevant treatment interventions and goals.
[2018-09-24] MEDS ORDERED: Propranolol TAB* 20 MG PO ONE (12:59)
--- NOTE | 2018-09-24 13:06 | PN ---
Subjective - Subjective Date of Service: 09/24/18 Service Type: 37926 Hosp care 25 min moderate complexity Subjective: patient reports significant distress due to hand tremor and cold sensation in hands. We discussed medication changes and given feedback of multiple somatic complaints. He is encouraged to continue to actively engage in distraction and other coping skills. He is given cognitive distortion assignment and states understanding. notified of cancellation of TOO due to compliance. Objective - Appearance Appearance: Well Developed/Nourished Dysmorphic Features: Yes Hygiene: Normal Grooming: Well Kept - Behavior Psychomotor Activities: Normal Exhibits Abnormal Movement: No - Attitude and Relatedness Attitude and Relatedness: Superficially Cooperative Eye Contact: Fair - Speech Quality: Unpressured Latencies: Normal Quantity: Appropriate - Mood Patient's Decription of Mood: "Anxious" - Affect Observed Affect: Tense Affect Consistent with: Dysphoria - Thought Process Patient's Thought Process: Circumstantial Thought Content: Yes Passive Wish, Yes Suicidal Planning, No Homicidal Ideation, No Paranoid Ideation - Sensorium Experiencing Hallucinations: No, Sensorium is Clear Type of Hallucinations: Visual: No, Auditory: No, Command: No - Level of Consciousness Level of Consciousness: Alert Orientation: Yes Intact, Yes Orientated to Time, Yes Orientated to Place, Yes Orientated to Person - Impulse Control Impulse Control: Tenuous - Insight and Judgement Insight and Judgement: Poor - Group Participation Particating in Group Activities: Yes - Medication Management Medication Management Adherence: Yes Assessment - Assessment Merits Inpatient Hospitalization: For Immediate Safety, For Stabilization Inpatient DSM-V Dx: F33.2 Clinical Impression: Mr Grayson is a 43 year-old man readmitted shortly [facility] for safety, assessment and treatment following overdose on Tylenol, having been medically cleared in the ICU. Patient merits hospitalization for immediate safety and stabilization. He is pending a referral to [facility]. Plan - Plan Treatment Plan: Name: SHASHA GRAYSON Birthdate: 1975 [id number] continue acute intensive psychiatric treatment. legal status converted to 9.27, 2PC. medication changes: change lithium to 600mg ER at bedtime, change clonidine to propranolol to better target tremor, DC gabapentin due to intolerable side effect per patient. utilize hydroxyzine prn for anxiety. continue behavior modification plan. pending referral to [facility] relinquish appeal for TOO Continued Medication Management: Different Medication Medications: Current Medications Albuterol (Ventolin 2.5 Mg/3 Ml Neb.Valeria*) 2.5 mg INH [id number] AWAKE PRN PRN Reason: sob/wheezing Amitriptyline HCl (Elavil Tab*) 100 mg PO BEDTIME [facility] Diphenhydramine HCl (Benadryl Po*) 50 mg PO BEDTIME PRN PRN Reason: INSOMNIA Last Admin: 09/23/18 20:04 Dose: 50 mg Docusate Sodium (Colace Cap*) 100 mg PO BID [facility] Last Admin: 09/24/18 08:21 Dose: 100 mg Hydroxyzine HCl (Atarax Tab*) 100 mg PO Q4H PRN PRN Reason: ANXIETY Ibuprofen (Motrin Tab*) 600 mg PO Q6H PRN PRN Reason: PAIN Last Admin: 09/24/18 08:21 Dose: 600 mg [place] Carbonate ([place] Carbonate Er (Nf)) 600 mg PO BEDTIME [facility]; Protocol Melatonin (Melatonin) 3 mg PO BEDTIME PRN; Protocol PRN Reason: SLEEP Last Admin: 09/23/18 20:04 Dose: 3 mg Propranolol HCl (Inderal Tab*) 40 mg PO BID [facility] Propranolol HCl (Inderal Tab*) 20 mg PO ONCE ONE Stop: 09/24/18 13:00 - Discharge Plan Discharge Plan: Consider Longer Term Tx
[2018-09-24] MEDS: Amitriptyline TAB* 100 MG PO SCH (20:28)
[2018-09-24] MEDS: Lithium Carbonate ER (NF) 300 MG TAB.ER PO SCH (20:30)
[2018-09-24] MEDS: Propranolol TAB* 40 MG PO SCH (20:30)
[2018-09-25] MEDS: Propranolol TAB* 40 MG PO SCH ×2 (08:14→20:22)
[2018-09-25] MEDS: Docusate CAP* 100 MG PO SCH ×2 (08:14→20:22)
[2018-09-25] MEDS: Ibuprofen TAB* 600 MG PO PRN ×2 (09:52→20:26)
--- NOTE | 2018-09-25 10:59 | PN ---
MHU: Group Therapy Note - Service Type Service Type: 18458 Group Psychotherapy - Cognitive Behavioral Group Therapy ( CBT):Patient was attentive and participatory in CBT programming this morning, and remained in good behavioral control. Patient expressed positive insights regarding relevant treatment interventions and goals.
[2018-09-25] MEDS ORDERED: Gabapentin CAP(*) 400 MG PO ONE ×2 (13:50→14:01)
[2018-09-25] MEDS: Lithium Carbonate ER (NF) 300 MG TAB.ER PO SCH (20:21)
[2018-09-25] MEDS: Amitriptyline TAB* 100 MG PO SCH (20:22)
--- NOTE | 2018-09-25 20:32 | PN ---
Hospitalist Progress Note Date of Service: 09/25/18 S: Consult requested for Chest pressure radiating into the left arm. Patient states this has been going on intermittently since he was admitted here. Patient complains of no associated symptoms. Patient states he is rather anxious but that it is no worse today than other days. Patient is bothered by a new tremor and cold hands. Patient states this has been going on for 5 days and feels as if it corresponds to being started on Elavil and [place]. Patient has not other complaints. Patient denies palpitations, Shortness of breath, or dizziness. O: General: 43yo anxious male who appears stated age. Cardiac: Regularly irregular rhythm in couplets, consistent with bigeminy. 2+ pulses throughout. Resp: CTA B/L Neuro: High frequency, low amplitude tremor in B/L Hands Psychiatric: Anxious and fixated on somatic complaints A/P: Chest Pain: Patient had similar pain when admitted to the medical floor and was at that time ruled out for RI. EKG non-ischemic and unchanged from that time. Will repeat Troponin I now. Will repeat Troponin and EKG in AM. If these are negative, no further workup is needed. Discomfort likely related to Bigeminy. Tremor and Cold Hands: Likely adverse effects from psychiatric medications. Will defer to primary team. Thank you for this consult, will follow from afar pending results. Please feel free to call with any questions.
[2018-09-26] MEDS: Ibuprofen TAB* 600 MG PO PRN (10:08)
[2018-09-26] MEDS: Propranolol TAB* 40 MG PO SCH (10:08)
[2018-09-26] MEDS: Docusate CAP* 100 MG PO SCH ×2 (10:08→20:05)
--- NOTE | 2018-09-26 11:33 | PN ---
MHU: Group Therapy Note - Service Type Service Type: 38496 Group Psychotherapy - Cognitive Behavioral Group Therapy ( CBT):Patient attended CBT programming this morning and presented with flat affect that did not vary with discussion. Although responsive to direct prompts to respond to questions, patient did not engage in spontaneous conversation.
--- NOTE | 2018-09-26 11:39 | PN ---
Subjective - Subjective Service Type: 35524 Psychotherapy - Individual Psychotherapy Note: Enrique continues to fixate on belief that he is not who he was supposed to be secondary to the injury sustained playing footbal when 14 years of age. Interventions addressed what his continuing symptoms do for him, as well as positive reinforcement for continuing to experience suicidal rumination. Enrique become somewhat agitated in this conversation, but reverts to perseverative belief about the continuing effects the injury exerts, stating " if that just didn't happen". He continues to present with flat and unvarying affect, and remains intensely related, but unchanging. Assessment - Assessment Inpatient DSM-V Dx: F33.2 Clinical Impression: Mr Grayson is a 43 year-old man readmitted shortly after discharge from [facility] at [facility] for safety, assessment and treatment following overdose on Tylenol, having been medically cleared in the ICU. Patient merits hospitalization for immediate safety and stabilization. He is pending a referral to [facility] and [facility] is pursuing Treatment Over Objection. Plan - Plan Treatment Plan: Name: SHASHA GRAYSON Birthdate: 1975 [id number] continue acute intensive psychiatric treatment. legal status converted to 9.27, 2PC. medication changes: change lithium to 600mg ER at bedtime, change clonidine to propranolol to better target tremor, DC gabapentin due to intolerable side effect per patient. utilize hydroxyzine prn for anxiety. continue behavior modification plan. pending referral to [facility] relinquish appeal for TOO Medications: Current Medications Albuterol (Ventolin 2.5 Mg/3 Ml Neb.Valeria*) 2.5 mg INH [id number] AWAKE PRN PRN Reason: sob/wheezing Amitriptyline HCl (Elavil Tab*) 100 mg PO BEDTIME [facility] Last Admin: 09/25/18 20:22 Dose: 100 mg Diphenhydramine HCl (Benadryl Po*) 50 mg PO BEDTIME PRN PRN Reason: INSOMNIA Last Admin: 09/23/18 20:04 Dose: 50 mg Docusate Sodium (Colace Cap*) 100 mg PO BID [facility] Last Admin: 09/26/18 10:08 Dose: 100 mg Hydroxyzine HCl (Atarax Tab*) 100 mg PO Q4H PRN PRN Reason: ANXIETY Ibuprofen (Motrin Tab*) 600 mg PO Q6H PRN PRN Reason: PAIN Last Admin: 09/26/18 10:08 Dose: 600 mg [place] Carbonate ([place] Carbonate Er (Nf)) 600 mg PO BEDTIME [facility]; Protocol Last Admin: 09/25/18 20:21 Dose: 600 mg Melatonin (Melatonin) 3 mg PO BEDTIME PRN; Protocol PRN Reason: SLEEP Last Admin: 09/23/18 20:04 Dose: 3 mg Propranolol HCl (Inderal Tab*) 40 mg PO BID [facility] Last Admin: 09/26/18 10:08 Dose: 40 mg
--- NOTE | 2018-09-26 16:00 | PN ---
Subjective - Subjective Date of Service: 09/26/18 Service Type: 61894 Hosp care 25 min moderate complexity Subjective: Patient reports mild improvement in hand tremor. He is less focused on this and moreso on left sided pain r/t football injury. He is agreeable to PT consult to inquire about strengthening exercises. We review cognitive distortions assignment. Patient identifies anger and fear r/t childhood injury and subsequent depression. Objective - Appearance Appearance: Well Developed/Nourished Dysmorphic Features: Yes Hygiene: Normal Grooming: Well Kept - Behavior Psychomotor Activities: Abnormal-Increased - bilat hand tremor - Attitude and Relatedness Attitude and Relatedness: Superficially Cooperative Eye Contact: Fair - Speech Quality: Unpressured Latencies: Normal Quantity: Appropriate - Mood Patient's Decription of Mood: "depressed" - Affect Observed Affect: Depressed Affect Consistent with: Dysphoria - Thought Process Patient's Thought Process: Circumstantial, Impoverished Thought Content: Yes Passive Wish, Yes Suicidal Planning, No Homicidal Ideation, No Paranoid Ideation - Sensorium Experiencing Hallucinations: No, Sensorium is Clear Type of Hallucinations: Visual: No, Auditory: No, Command: No - Level of Consciousness Level of Consciousness: Alert Orientation: Yes Intact, Yes Orientated to Time, Yes Orientated to Place, Yes Orientated to Person - Impulse Control Impulse Control: Tenuous - Insight and Judgement Insight and Judgement: Poor - Group Participation Particating in Group Activities: Yes - Medication Management Medication Management Adherence: Yes Assessment - Assessment Merits Inpatient Hospitalization: For Immediate Safety, For Stabilization Inpatient DSM-V Dx: F33.2 Clinical Impression: Mr Grayson is a 43 year-old man readmitted shortly after discharge from ECT at [facility] for safety, assessment and treatment following overdose on Tylenol, having been medically cleared in the ICU. Patient merits hospitalization for immediate safety and stabilization. He is pending a referral to [facility]. Plan - Plan Treatment Plan: Name: SHASHA GRAYSON Birthdate: 1975 [id number] continue acute intensive psychiatric treatment. legal status converted to 9.27, 2PC. medication changes: increase propranolol to target anxiety and tremor. add lyrica 75mg BID for neuropathic pain. obtain PT consult continue behavior modification plan. pending referral to [facility] Continued Medication Management: Different Medication Medications: Current Medications Albuterol (Ventolin 2.5 Mg/3 Ml Neb.Valeria*) 2.5 mg INH [id number] AWAKE PRN PRN Reason: sob/wheezing Amitriptyline HCl (Elavil Tab*) 100 mg PO BEDTIME IRENE Last Admin: 09/25/18 20:22 Dose: 100 mg Diphenhydramine HCl (Benadryl Po*) 50 mg PO BEDTIME PRN PRN Reason: INSOMNIA Last Admin: 09/23/18 20:04 Dose: 50 mg Docusate Sodium (Colace Cap*) 100 mg PO BID IRENE Last Admin: 09/26/18 10:08 Dose: 100 mg Hydroxyzine HCl (Atarax Tab*) 100 mg PO Q4H PRN PRN Reason: ANXIETY Ibuprofen (Motrin Tab*) 600 mg PO Q6H PRN PRN Reason: PAIN Last Admin: 09/26/18 10:08 Dose: 600 mg [place] Carbonate ([place] Carbonate Er (Nf)) 600 mg PO BEDTIME IRENE; Protocol Last Admin: 09/25/18 20:21 Dose: 600 mg Melatonin (Melatonin) 3 mg PO BEDTIME PRN; Protocol PRN Reason: SLEEP Last Admin: 09/23/18 20:04 Dose: 3 mg Pregabalin (Lyrica Cap(*)) 75 mg PO BID IRENE Propranolol HCl (Inderal Tab*) 60 mg PO BID IRENE - Discharge Plan Discharge Plan: Consider Longer Term Tx
[2018-09-26] MEDS: Amitriptyline TAB* 100 MG PO SCH (20:04)
[2018-09-26] MEDS: Lithium Carbonate ER (NF) 300 MG TAB.ER PO SCH (20:04)
[2018-09-26] MEDS: Propranolol TAB* 60 MG PO SCH (20:07)
[2018-09-26] MEDS: Pregabalin CAP(*) 25 MG PO SCH (20:08)
[2018-09-27] MEDS: Pregabalin CAP(*) 25 MG PO SCH ×2 (09:26→20:21)
[2018-09-27] MEDS: Propranolol TAB* 60 MG PO SCH ×2 (09:27→20:21)
[2018-09-27] MEDS: Docusate CAP* 100 MG PO SCH ×2 (09:27→20:21)
[2018-09-27] MEDS: Ibuprofen TAB* 600 MG PO PRN ×2 (11:11→20:23)
--- NOTE | 2018-09-27 12:05 | PN ---
Subjective - Subjective Date of Service: 09/27/18 Service Type: 78428 Hosp care 15 min low complexity Subjective: patient c/o sciatic pain, vague left-sided pain and hand tremors. He agrees to PT consult to identify strengthening exercises. He endorses difficulty with concentration. He reports concern that he permanently damaged himself due to overdoses. Objective - Appearance Appearance: Well Developed/Nourished Dysmorphic Features: Yes Hygiene: Normal Grooming: Fairly Well Kept - Behavior Psychomotor Activities: Normal Exhibits Abnormal Movement: No - Attitude and Relatedness Attitude and Relatedness: Superficially Cooperative Eye Contact: Poor - Speech Quality: Unpressured Latencies: Normal Quantity: Appropriate - Mood Patient's Decription of Mood: "Okay" - Affect Observed Affect: Tense Affect Consistent with: Dysphoria - Thought Process Patient's Thought Process: Circumstantial, Impoverished Thought Content: Yes Passive Wish, No Suicidal Planning, No Homicidal Ideation, No Paranoid Ideation - Sensorium Experiencing Hallucinations: No, Sensorium is Clear Type of Hallucinations: Visual: No, Auditory: No, Command: No - Level of Consciousness Level of Consciousness: Alert Orientation: Yes Intact, Yes Orientated to Time, Yes Orientated to Place, Yes Orientated to Person - Impulse Control Impulse Control: Poor - Insight and Judgement Insight and Judgement: Impaired - Group Participation Particating in Group Activities: Yes - Medication Management Medication Management Adherence: Yes Assessment - Assessment Merits Inpatient Hospitalization: For Immediate Safety, For Stabilization Inpatient DSM-V Dx: F33.2 Clinical Impression: Mr Grayson is a 43 year-old man readmitted shortly after discharge from [facility] at [facility] for safety, assessment and treatment following overdose on Tylenol, having been medically cleared in the ICU. Patient merits hospitalization for immediate safety and stabilization. He is pending a referral to [facility]. Plan - Plan Treatment Plan: Name: SHASHA GRAYSON Birthdate: 1975 [id number] continue acute intensive psychiatric treatment. legal status converted to 9.27, 2PC. medication changes: increase propranolol to target anxiety and tremor. add lyrica 75mg BID for neuropathic pain. obtain PT consult continue behavior modification plan. pending referral to [facility] Continued Medication Management: Different Medication Medications: Current Medications Albuterol (Ventolin 2.5 Mg/3 Ml Neb.Valeria*) 2.5 mg INH [id number] AWAKE PRN PRN Reason: sob/wheezing Amitriptyline HCl (Elavil Tab*) 100 mg PO BEDTIME [facility] Last Admin: 09/26/18 20:04 Dose: 100 mg Diphenhydramine HCl (Benadryl Po*) 50 mg PO BEDTIME PRN PRN Reason: INSOMNIA Last Admin: 09/23/18 20:04 Dose: 50 mg Docusate Sodium (Colace Cap*) 100 mg PO BID [facility] Last Admin: 09/27/18 09:27 Dose: 100 mg Hydroxyzine HCl (Atarax Tab*) 100 mg PO Q4H PRN PRN Reason: ANXIETY Ibuprofen (Motrin Tab*) 600 mg PO Q6H PRN PRN Reason: PAIN Last Admin: 09/27/18 11:11 Dose: 600 mg [place] Carbonate ([place] Carbonate Er (Nf)) 600 mg PO BEDTIME [facility]; Protocol Last Admin: 09/26/18 20:04 Dose: 600 mg Melatonin (Melatonin) 3 mg PO BEDTIME PRN; Protocol PRN Reason: SLEEP Last Admin: 09/23/18 20:04 Dose: 3 mg Pregabalin (Lyrica Cap(*)) 75 mg PO BID [facility] Last Admin: 09/27/18 09:26 Dose: 75 mg Propranolol HCl (Inderal Tab*) 60 mg PO BID [facility] Last Admin: 09/27/18 09:27 Dose: 60 mg - Discharge Plan Discharge Plan: Consider Longer Term Tx
--- NOTE | 2018-09-27 13:26 | PN ---
Subjective - Subjective Service Type: 21279 Psychotherapy - Individual Psychotherapy Note: Enrique remains very fixated on his belief that his depression cannot improve secondary to his physical problems, again discussing the effects of the football injury from the age of 14, and worsened by his recent overdose attempt. He states he cannot think clearly anymore, and that the overdose has also effected fine motor skills. He engaged in picking his finger nails in an agitated fashion this morning, and was difficult to redirect, with attempts to calm being met with frustration and discussion of perceived somatic problems. Homework discussion encouraged Santos to engage in creative writing process over the weekend, encouraging him to engage in a therapeutic process while here, instead of simply waiting to be transferred to a state facility. Assessment - Assessment Inpatient DSM-V Dx: F33.2 Clinical Impression: Mr Grayson is a 43 year-old man readmitted shortly after discharge from [facility] at [facility] for safety, assessment and treatment following overdose on Tylenol, having been medically cleared in the ICU. Patient merits hospitalization for immediate safety and stabilization. He is pending a referral to [facility]. Plan - Plan Treatment Plan: Name: SHASHA GRAYSON Birthdate: 1975 [id number] continue acute intensive psychiatric treatment. legal status converted to 9.27, 2PC. medication changes: increase propranolol to target anxiety and tremor. add lyrica 75mg BID for neuropathic pain. obtain PT consult continue behavior modification plan. pending referral to [facility] Medications: Current Medications Albuterol (Ventolin 2.5 Mg/3 Ml Neb.Valeria*) 2.5 mg INH [id number] AWAKE PRN PRN Reason: sob/wheezing Amitriptyline HCl (Elavil Tab*) 100 mg PO BEDTIME IRENE Last Admin: 09/26/18 20:04 Dose: 100 mg Diphenhydramine HCl (Benadryl Po*) 50 mg PO BEDTIME PRN PRN Reason: INSOMNIA Last Admin: 09/23/18 20:04 Dose: 50 mg Docusate Sodium (Colace Cap*) 100 mg PO BID IRENE Last Admin: 09/27/18 09:27 Dose: 100 mg Hydroxyzine HCl (Atarax Tab*) 100 mg PO Q4H PRN PRN Reason: ANXIETY Ibuprofen (Motrin Tab*) 600 mg PO Q6H PRN PRN Reason: PAIN Last Admin: 09/27/18 11:11 Dose: 600 mg [place] Carbonate ([place] Carbonate Er (Nf)) 600 mg PO BEDTIME IRENE; Protocol Last Admin: 09/26/18 20:04 Dose: 600 mg Melatonin (Melatonin) 3 mg PO BEDTIME PRN; Protocol PRN Reason: SLEEP Last Admin: 09/23/18 20:04 Dose: 3 mg Pregabalin (Lyrica Cap(*)) 75 mg PO BID IRENE Last Admin: 09/27/18 09:26 Dose: 75 mg Propranolol HCl (Inderal Tab*) 60 mg PO BID IRENE Last Admin: 09/27/18 09:27 Dose: 60 mg
[2018-09-27] MEDS: Amitriptyline TAB* 100 MG PO SCH (20:21)
[2018-09-27] MEDS: Lithium Carbonate ER (NF) 300 MG TAB.ER PO SCH (22:07)
[2018-09-28] MEDS: Docusate CAP* 100 MG PO SCH ×2 (08:27→20:18)
[2018-09-28] MEDS: Propranolol TAB* 60 MG PO SCH ×2 (08:27→20:17)
[2018-09-28] MEDS: Pregabalin CAP(*) 25 MG PO SCH ×2 (11:39→20:18)
[2018-09-28] MEDS: Ibuprofen TAB* 600 MG PO PRN ×2 (11:51→22:57)
[2018-09-28] MEDS: hydrOXYzine HCL TAB* 50 MG PO PRN ×2 (18:14→22:57)
[2018-09-28] MEDS: Amitriptyline TAB* 100 MG PO SCH (20:17)
[2018-09-28] MEDS: diPHENhydraMINE PO* 50 MG PO PRN (20:18)
[2018-09-28] MEDS: Melatonin 3 MG TAB PO PRN (20:18)
[2018-09-28] MEDS: Lithium Carbonate ER (NF) 300 MG TAB.ER PO SCH (20:19)
[2018-09-29] MEDS: Pregabalin CAP(*) 25 MG PO SCH ×2 (08:41→20:15)
[2018-09-29] MEDS: Propranolol TAB* 60 MG PO SCH ×2 (08:41→20:09)
[2018-09-29] MEDS: Docusate CAP* 100 MG PO SCH ×2 (08:41→20:08)
[2018-09-29] MEDS: Ibuprofen TAB* 600 MG PO PRN (11:12)
[2018-09-29] MEDS: hydrOXYzine HCL TAB* 50 MG PO PRN ×2 (14:14→18:29)
[2018-09-29] MEDS: Lithium Carbonate ER (NF) 300 MG TAB.ER PO SCH (20:08)
[2018-09-29] MEDS: Amitriptyline TAB* 100 MG PO SCH (20:08)
[2018-09-29] MEDS: Melatonin 3 MG TAB PO PRN (20:16)
[2018-09-29] MEDS: diPHENhydraMINE PO* 50 MG PO PRN (20:16)
[2018-09-30] MEDS: Pregabalin CAP(*) 25 MG PO SCH ×2 (08:23→20:21)
[2018-09-30] MEDS: Propranolol TAB* 60 MG PO SCH ×2 (08:23→20:20)
[2018-09-30] MEDS: Docusate CAP* 100 MG PO SCH ×2 (08:23→20:21)
[2018-09-30] MEDS: Ibuprofen TAB* 600 MG PO PRN ×2 (10:10→20:24)
--- NOTE | 2018-09-30 13:49 | PN ---
Subjective - Subjective Date of Service: 09/30/18 Service Type: 49577 Hosp care 15 min low complexity Subjective: Patient seen for Diane Winter NP. The patient reported that his hands and arms still feel shaky. He reported attending group. and has had adequate appetite. No overnight events. He reports getting 4-6 hours of sleep. Patient denied suicidal and or homicidal ideation intent or plan. He denied auditory and or visual hallucinations Objective - Appearance Appearance: Healthy Appearing Dysmorphic Features: No Hygiene: Normal Grooming: Fairly Well Kept - Behavior Psychomotor Activities: Normal Exhibits Abnormal Movement: Yes - Attitude and Relatedness Attitude and Relatedness: Cooperative Eye Contact: Fair - Speech Quality: Unpressured - Mood Patient's Decription of Mood: "Fine" - Affect Observed Affect: Non-labile Affect Consistent with: Euthymia - Thought Process Patient's Thought Process: Coherent Thought Content: No Passive Wish, No Suicidal Planning, No Homicidal Ideation, No Paranoid Ideation - Sensorium Experiencing Hallucinations: No, Sensorium is Clear Type of Hallucinations: Visual: No, Auditory: No, Command: No - Level of Consciousness Level of Consciousness: Alert Orientation: Yes Intact, Yes Orientated to Time, Yes Orientated to Place, Yes Orientated to Person - Impulse Control Impulse Control: Impaired - Insight and Judgement Insight and Judgement: Poor - Group Participation Particating in Group Activities: Yes - Medication Management Medication Management Adherence: Yes Assessment - Assessment Inpatient DSM-V Dx: F33.2 Clinical Impression: Mr Grayson is a 43 year-old man readmitted shortly after discharge from ECT at [facility] for safety, assessment and treatment following overdose on Tylenol, having been medically cleared in the ICU. Patient merits hospitalization for immediate safety and stabilization. He is pending a referral to [facility]. Plan - Plan Treatment Plan: Name: SHASHA GRAYSON Birthdate: 1975 [id number] Continue scheduled medications of lithium, amitriptyline, propranolol and lyrica Patient continues to require inpatient hospitalization at this time. Continue PT Continued Medication Management: Continue Outpt Medication Medications: Current Medications Albuterol (Ventolin 2.5 Mg/3 Ml Neb.Valeria*) 2.5 mg INH [id number] AWAKE PRN PRN Reason: sob/wheezing Amitriptyline HCl (Elavil Tab*) 100 mg PO BEDTIME IRENE Last Admin: 09/29/18 20:08 Dose: 100 mg Diphenhydramine HCl (Benadryl Po*) 50 mg PO BEDTIME PRN PRN Reason: INSOMNIA Last Admin: 09/29/18 20:16 Dose: 50 mg Docusate Sodium (Colace Cap*) 100 mg PO BID IRENE Last Admin: 09/30/18 08:23 Dose: 100 mg Hydroxyzine HCl (Atarax Tab*) 100 mg PO Q4H PRN PRN Reason: ANXIETY Last Admin: 09/29/18 18:29 Dose: 100 mg Ibuprofen (Motrin Tab*) 600 mg PO Q6H PRN PRN Reason: PAIN Last Admin: 09/30/18 10:10 Dose: 600 mg [place] Carbonate ([place] Carbonate Er (Nf)) 600 mg PO BEDTIME IRENE; Protocol Last Admin: 09/29/18 20:08 Dose: 600 mg Melatonin (Melatonin) 3 mg PO BEDTIME PRN; Protocol PRN Reason: SLEEP Last Admin: 09/29/18 20:16 Dose: 3 mg Pregabalin (Lyrica Cap(*)) 75 mg PO BID IRENE Last Admin: 09/30/18 08:23 Dose: 75 mg Propranolol HCl (Inderal Tab*) 60 mg PO BID IRENE Last Admin: 09/30/18 08:23 Dose: 60 mg - Discharge Plan Discharge Plan: Inpatient Hospitalization
[2018-09-30] MEDS: hydrOXYzine HCL TAB* 50 MG PO PRN (16:30)
[2018-09-30] MEDS: Lithium Carbonate ER (NF) 300 MG TAB.ER PO SCH (20:20)
[2018-09-30] MEDS: Amitriptyline TAB* 100 MG PO SCH (20:20)
[2018-09-30] MEDS: Melatonin 3 MG TAB PO PRN (20:25)
[2018-09-30] MEDS: diPHENhydraMINE PO* 50 MG PO PRN (20:25)
[2018-10-01] MEDS: Pregabalin CAP(*) 25 MG PO SCH ×2 (08:28→20:23)
[2018-10-01] MEDS: Docusate CAP* 100 MG PO SCH ×2 (08:28→20:20)
[2018-10-01] MEDS: Propranolol TAB* 60 MG PO SCH ×2 (08:28→20:23)
[2018-10-01] MEDS: Ibuprofen TAB* 600 MG PO PRN ×2 (10:36→20:25)
[2018-10-01] MEDS: Amitriptyline TAB* 100 MG PO SCH (20:21)
[2018-10-01] MEDS: Lithium Carbonate ER (NF) 300 MG TAB.ER PO SCH (20:22)
[2018-10-01] MEDS: Melatonin 3 MG TAB PO PRN (20:24)
[2018-10-01] MEDS: diPHENhydraMINE PO* 50 MG PO PRN (20:25)
[2018-10-02] MEDS: Pregabalin CAP(*) 25 MG PO SCH ×2 (09:49→20:52)
[2018-10-02] MEDS: Propranolol TAB* 60 MG PO SCH ×2 (09:50→20:10)
[2018-10-02] MEDS: Docusate CAP* 100 MG PO SCH ×2 (09:50→20:10)
--- NOTE | 2018-10-02 11:56 | PN ---
Subjective - Subjective Date of Service: 10/02/18 Service Type: 93096 Hosp care 25 min moderate complexity Subjective: Patient notified of bed assignment for tomorrow at [facility]. Patient given feedback about avoiding and deflection. He is encouraged to challenge cognitive distortions via assignments, continue PT exercises and participation in programming. He is increasingly agitated when experiences disappointment and often exhibits help-rejection. Patient's , Cristiana notified of pending transfer tomorrow. Objective - Appearance Appearance: Well Developed/Nourished Dysmorphic Features: Yes Hygiene: Normal Grooming: Well Kept - Behavior Psychomotor Activities: Normal Exhibits Abnormal Movement: No - Attitude and Relatedness Attitude and Relatedness: Irritable Eye Contact: Poor - Speech Quality: Unpressured Latencies: Normal Quantity: Terse - Mood Patient's Decription of Mood: "Terrible" - Affect Observed Affect: Depressed Affect Consistent with: Dysphoria - Thought Process Patient's Thought Process: Circumstantial Thought Content: Yes Passive Wish, No Suicidal Planning, No Homicidal Ideation, No Paranoid Ideation - Sensorium Experiencing Hallucinations: No, Sensorium is Clear Type of Hallucinations: Visual: No, Auditory: No, Command: No - Level of Consciousness Level of Consciousness: Alert Orientation: Yes Intact, Yes Orientated to Time, Yes Orientated to Place, Yes Orientated to Person - Impulse Control Impulse Control: Poor - Insight and Judgement Insight and Judgement: Poor - Group Participation Particating in Group Activities: Yes - Medication Management Medication Management Adherence: Yes Assessment - Assessment Merits Inpatient Hospitalization: For Immediate Safety, For Stabilization Inpatient DSM-V Dx: F33.2 Clinical Impression: Mr Grayson is a 43 year-old man readmitted shortly after discharge from ECT at [facility] for safety, assessment and treatment following overdose on Tylenol, having been medically cleared in the ICU. Patient merits hospitalization for immediate safety and stabilization. He is pending a referral to [facility]. Plan - Plan Treatment Plan: Name: SHASHA GRAYSON Birthdate: 1975 [id number] continue psychiatric hospitalization, pending transfer to [facility] 10/03/18. increase hs dose of amitriptylline. continue other medications. Medications: Current Medications Albuterol (Ventolin 2.5 Mg/3 Ml Neb.Valeria*) 2.5 mg INH [id number] AWAKE PRN PRN Reason: sob/wheezing Amitriptyline HCl (Elavil Tab*) 125 mg PO BEDTIME IRENE Diphenhydramine HCl (Benadryl Po*) 50 mg PO BEDTIME PRN PRN Reason: INSOMNIA Last Admin: 10/01/18 20:25 Dose: 50 mg Docusate Sodium (Colace Cap*) 100 mg PO BID IRENE Last Admin: 10/02/18 09:50 Dose: 100 mg Hydroxyzine HCl (Atarax Tab*) 100 mg PO Q4H PRN PRN Reason: ANXIETY Last Admin: 09/30/18 16:30 Dose: 100 mg Ibuprofen (Motrin Tab*) 600 mg PO Q6H PRN PRN Reason: PAIN Last Admin: 10/01/18 20:25 Dose: 600 mg [place] Carbonate ([place] Carbonate Er (Nf)) 600 mg PO BEDTIME IRENE; Protocol Last Admin: 10/01/18 20:22 Dose: 600 mg Melatonin (Melatonin) 3 mg PO BEDTIME PRN; Protocol PRN Reason: SLEEP Last Admin: 10/01/18 20:24 Dose: 3 mg Pregabalin (Lyrica Cap(*)) 75 mg PO BID IRENE Last Admin: 10/02/18 09:49 Dose: 75 mg Propranolol HCl (Inderal Tab*) 60 mg PO BID IRENE Last Admin: 10/02/18 09:50 Dose: 60 mg - Discharge Plan Discharge Plan: Consider Longer Term Tx
--- NOTE | 2018-10-02 11:58 | PN ---
[facility]: Group Therapy Note - Service Type Service Type: 96280 Group Psychotherapy - Cognitive Behavioral Group Therapy ( CBT):Patient was attentive and participatory in CBT programming this morning, and remained in good behavioral control. Patient expressed positive insights regarding relevant treatment interventions and goals.
[2018-10-02] MEDS: Ibuprofen TAB* 600 MG PO PRN (20:10)
[2018-10-02] MEDS: Lithium Carbonate ER (NF) 300 MG TAB.ER PO SCH (20:10)
[2018-10-02] MEDS: Melatonin 3 MG TAB PO PRN (20:10)
[2018-10-02] MEDS: diPHENhydraMINE PO* 50 MG PO PRN (20:11)
[2018-10-02] MEDS ORDERED: Amitriptyline TAB* 100 MG PO SCH (21:00)
[2018-10-02] MEDS ORDERED: Amitriptyline TAB* 25 MG PO SCH (21:00)
[2018-10-03] MEDS: Pregabalin CAP(*) 25 MG PO SCH (08:18)
[2018-10-03] MEDS: Propranolol TAB* 60 MG PO SCH (08:18)
[2018-10-03] MEDS: Docusate CAP* 100 MG PO SCH (08:18)
[2018-10-03] MEDS ORDERED: LORazepam TAB(*) 1 MG ONE (09:14)
[2018-10-03 10:06] VITALS: BP 129/70
[2018-10-03] MEDS ORDERED: LORazepam TAB(*) 1 MG PO ONE ×2 (10:33→11:00)
--- NOTE | 2018-10-07 21:18 | DS ---
CC: [facility]; Dr. Otilio Malin DISCHARGE SUMMARY: DATE OF ADMISSION: 09/05/18 DATE OF DISCHARGE: 10/04/18 SUPERVISING PSYCHIATRIST: Dr. Yoav Padilla. JUSTIFICATION FOR ADMISSION: The patient presented to the emergency department after an overdose of Tylenol in suicide attempt. HISTORY OF PRESENT ILLNESS: Jet was last hospitalized to this unit on 08/21/18 and was transfer red to [facility] on 08/19/18 for ECT. He was there until 09/02/18 when discharged h ome after 6 treatments with the hope to continue outpatient ECT. Jet decided not to pursue anym ore ECTs citing "no effect." He then became severely depressed and once again attempted suicide by t aking 50 of 500 mg acetaminophen. He called the Suicide Hotline and he was brought to the emergency room. He was admitted to ICU and received treatment per protocol. He was transferred to the [facility] on 09/05/18 after medical clearance. CONDITION AT TIME OF DISCHARGE: Guarded. The patient continues to endorse severe depressive symptom s and anxiety. He endorses passive wish. He has told staff and peers that he continues to con template suicide, but knows that he cannot do so in this environment. MENTAL STATUS EXAM: Tall, healthy-appearing male, who is appropriately dressed in his own clothing and well groomed. He is alert and oriented x3. Makes poor eye contact. Speech is loud at times, otherwise soft and articulate. His mood is irritable. Affect is flat. The patient denies au ditory or visual hallucinations. There are no perceptual disturbances noted. His thought content is significant for passive wish. Thought process is impoverished and circumstantial. Insight an d judgment are impaired. Fund of knowledge is adequate. INSTRUCTIONS GIVEN TO THE PATIENT: A. Medications: 1. Amitriptyline 125 mg p.o. at bedtime. 2. Docusate 100 mg p.o. b.i.d. 3. Hydroxyzine 100 mg q.4 hours p.r.n. anxiety. 4. [place] [facility] 600 mg at bedtime. 5. Lyrica 75 mg p.o. b.i.d. 6. Propranolol 60 mg p.o. b.i.d. B. Diet: Regular. C. Activity: Ambulation as tolerated. Tobacco cessation is not applicable. There are no pending la bs or diagnostic studies. D. Followup care: The patient is being transferred to [facility] for a longer term stabilization. He can follow up with his primary care provider, Dr. Otilio Malin as needed. E. Substance use: Followup is not applicable. HOSPITAL COURSE: Part A: Reason for admission: As stated above, the patient presented to the emerge ncy department after an intentional overdose on Tylenol. 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 The patient verbalized symptoms of sadness, lack of motivation , poor attention, concentration, ongoing confusion, ambivalence and thoughts of self-harm. He firmly believes he will never get better. The patient stays in bed most of the time. The patient was incr easingly seclusive. He refused meals and endorsed failure to thrive related to chronic right-sided p ain. His mother visited often. She reported the patient had significantly decompensated over the st year. 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 On the week of 09/16/18, the patient continued to lie in bed with the exception of meals and medicati on. He was given much feedback by various staff members and expert to participate in milieu. He did not engage in conversation, but simply presented as dysphoric, sobbing inconsolably and repeating va rious few statements such as "it was not supposed to be like this, just let me be and no one understa nds." He was explained the process of treatment over objection to be pursued if warranted. The laurence ent had been heard to say that he is planning suicide after a hospitalization. We pursued treatment over objection at this point including behavior modification plan. Collateral information obtained f rom the patient's regarding consistent narrative of his life not turning out the way he thought it was supposed to be due to a football injury. She reported concern about recent benzodiazepine dep endence. The patient was given multiple CBT worksheets to assist in negative thinking pattern. The patient continued to avoid treatment including lying on the mattress continually despite instructions to refrain from doing so. Due to the patient's poor insight and judgement, treatment team discussed intensive behavior modification planning including removing the mattress from his bed during the day time hours. The patient was irritable and expressed opposition. He was given much feedback about no t participating in treatment. Towards the end of this week, he showed increased participation in pro gramming and continued to do so. He reported anxiety, inquired about providers discontinuation of cl onazepam, much education done regarding path and effective trials and potential for dependence, as we ll as contraindicated due to his current presentation. The patient was compliant with medications an d increasingly participated in programming. Treatment over objection was canceled. Week of 09/23/18 , patient was complained of hand tremor and cold sensation in hands. He is encouraged to continue to actively engage in distraction and other coping skills. We trialed gabapentin which he reported caus ed worsening symptoms. He reported left side chest pressure and that this had been going on intermit tently. The patient complains of no associated symptoms. He was seen by hospitalist and cardiac inv olvement was ruled out at this time. We titrated propranolol due to tremor likely due to lithium or due to generalized anxiety. After he was no longer complaining of hand tremor and cold sensitivity, he was less focussed on this and more so on the chronic pain related to football injury at age 13. Dallas harris received a physical therapy consult to discuss strengthening exercises for these. The patient was accepted to [facility] and we continued to titrate medications including adding lithium and Lyrica for both suicidal ideation and subjective feeling of pain. On the day of transfe r, the patient sat on the stretcher and initially refused to cooperate. He phoned and was noti fied no further action necessary for the patient. With the assistance of [facility] security an jesus service or work dispatcher, the patient was verbally deescalated and cooperative with transfer. In all of the above, his and his mother were notified and kept abreast of treatment planning. ARSH CARRASCO, JIMI [id number]/[facility] #: [id number]
== END 2018-10-03 12:20 | disposition short-term general hospital (02) | DRG 751 ==
LOC: ED 20:25 → ICU 22:20 → BSU 09-07 16:30
PROVIDERS: ADMIT Internal Medicine; ATTEND Psychiatry & Neurology Psychiatry
PROC: GZHZZZZ Group Psychotherapy (ICD-10-PCS; principal; 2018-09-18)
DX: F33.2 Major depressive disorder, recurrent severe without psychotic features (principal); T39.1X2A Poisoning by 4-Aminophenol derivatives, intentional self-harm, initial encounter; F41.9 Anxiety disorder, unspecified; I10 Essential (primary) hypertension; R07.9 Chest pain, unspecified; G89.29 Other chronic pain; R25.1 Tremor, unspecified; G62.9 Polyneuropathy, unspecified; F60.3 Borderline personality disorder; M54.9 Dorsalgia, unspecified; Z83.3 Family history of diabetes mellitus; Z81.8 Family history of other mental and behavioral disorders; Z87.891 Personal history of nicotine dependence; Y92.009 Unspecified place in unspecified non-institutional (private) residence as the place of occurrence of the external cause; Z91.5 Personal history of self-harm; Z56.0 Unemployment, unspecified
CPT/HCPCS: 36415; 71045; 80048; 80053; 80061; 80076; 80307; 80320; 80329; 81003; 82248; 83036; 83605; 83735; 84100; 84443; 84484; 85025; 85027; 85610; 87641; 90832; 90834; 90853; 93005; 96130; 99222; 99231; 99232; 99233; 99238; 99283; A9270-GY; G0480; G8978-GP-CH; G8979-GP-CH; G8980-GP-CH; J0132; J0360; J1650; J1885; J2405; J3370; J3475; J7060

== ENCOUNTER 2019-07-12 10:49 | Emergency (ER) | payer MEDICAID, OTHER ==
--- OUTSIDE RECORDS SUMMARY | 2019-07-12 10:55 | XMS REPORT | Continuity of Care Document ---
:1975 External Reference #:[id number] Author Name ELSA Lentz Address [address] [place] [id number] Problems Active Problems Provider Date Anxiety disorder Onset: 09/24/2017 Vitamin D deficiency Onset: 09/12/2017 Posttraumatic stress disorder Onset: 12/03/2014 Social History Type Date Description Comments Sex Unknown Allergies, Adverse Reactions, Alerts Active Allergies Reaction Severity Comments Date Fluoxetine Suicidal ideation Severe 05/16/2019 [place] Blurry vision, tremor Moderate 05/16/2019 Wellbutrin agitation 05/16/2019 Medications Active Medications SIG Qnty Indications Ordering Provider Date Amitriptyline HCL 2 tab by mouth 60tabs ELSA Lentz 06/11/2019 100mg every day at Tablets bedtime Clonazepam 1 tab by mouth 60tabs ELSA Lentz 06/11/2019 1mg Tablets twice a day as needed KP Melatonin tab by mouth 30tabs ELSA Lentz 06/11/2019 3mg Tablets every day at bedtime Vitamin D3 Complete 1 tab by mouth 30tabs ELSA Lentz 06/11/2019 every day Tablets Immunizations CPT Code Status Date Vaccine Lot # [id number] Given 09/15/2010 Tdap - Boostrix/Adacel [id number] Given 09/15/2010 Influenza Virus Vaccine, Quadrivalent, Split, Im Use 0.25ML [id number] Given 09/15/2010 Influenza Virus Vaccine, Split Virus, Preservative Free Im 0.5ML [id number] Refused 09/05/2017 Influenza Virus Vaccine, Quadrivalent, Split, Im Use 0.25ML [id number] Refused 08/19/2014 Influenza Virus Vaccine, Quadrivalent, Split, Im Use 0.25ML [id number] Refused 05/23/2013 Influenza Virus Vaccine, Quadrivalent, Split, Im Use 0.25ML Vital Signs Date Vital Result Comment 06/11/2019 9:09am BP Systolic 134 mmHg left arm BP Diastolic 76 mmHg left arm Height 73 inches 6'1" Weight 254.00 lb Heart Rate 116 /min Body Temperature 97.5 F O2 % BldC Oximetry 95 % BMI (Body Mass Index) 33.5 kg/m2 04/16/2018 10:54am BP Systolic 138 mmHg Height 72.50 inches 6'0.50" Weight 243.00 lb Heart Rate 105 /min Body Temperature 97.1 F O2 % BldC Oximetry 97 % BMI (Body Mass Index) 32.50 kg/m2 Results Description No Information Available Procedures Description No Information Available Medical Devices Description No Information Available Encounters Type Date Location Provider Dx Diagnosis Office Visit 06/11/2019 9:15a [facility] ELSA Lentz F33.40 Major depressive disorder, recurrent, in remission, unsp Z68.33 Body mass index (BMI) 33.0-33.9, adult Assessments Date Code Description Provider 06/11/2019 F33.40 Major depressive disorder, recurrent, in remission, ELSA Lentz unspecified 06/11/2019 Z68.33 Body mass index (BMI) 33.0-33.9, adult ELSA Lentz Plan of Treatment Future Appointment(s):09/16/2019 9:15 am - ELSA Lentz at [facility] - ELSA LentzF33.40 Major depressive disorder, recurrent, in remission , unspecifiedComments:discussed continuing regualr medications and followup with [facility] on 06/13/19 for med mnagement and counseling discussed support services in the community avaiable-suicide prevention, crisis text hotlinedisussed stresss and triggers during transition back home to [facility] continue regular exercise and diet to manage mood and weight refuses influenza imm today will return for AWC in 1-3 months and as [id number] Body mass index (BMI) 33.0-33.9, adultAllNew Medication: Amitriptyline HCL 100 mg - 2 tab by mouth every day at bedtimeClonazepam 1 mg - 1 tab by mouth twice a day as neededKP Melatonin 3 mg - tab by mouth every day at bedtimeVitamin D3 Complete - 1 tab by mouth every day Functional Status Description No Information Available Mental Status Description No Information Available Referrals Description No Information Available
[2019-07-12 11:03] VITALS: BP 144/94
--- NOTE | 2019-07-12 11:19 | UC ---
UC General HPI - HPI Summary HPI Summary: 44-year-old male comes in with chief complaint of bodyaches and headache for one week. Patient saw his primary care physician on July 09, 2019. They recommended that if he did not improve her got worse he should get checked for causes of the symptoms to include the possibility of Lyme disease. Today the patient woke up and the body aches and headache or worse than prior times. He does take ibuprofen which helped some. No fevers or chills no sore throat no cough chest congestion or abdominal pain. No dysuria or urinary symptoms no diarrhea or abnormal stools. No rash no known tick bite. He has generalized body aches which included his neck and his back which are no worse than the generalized body aches. - History of Current Complaint Chief Complaint: UCGeneralIllness Stated Complaint: ACHES, AND HEADACHE Time Seen by Provider: 07/12/19 11:03 Pain Intensity: 6 - Allergy/Home Medications Allergies/Adverse Reactions: Allergies Allergy/AdvReac Type Severity Reaction Status Date / Time No Known Allergies Allergy Verified 07/12/19 10:54 Home Medications: Home Medications Ibuprofen TAB* [Motrin TAB* 400 MG] 400 mg PO Q6H PRN 07/12/19 [History Confirmed 07/12/19] clonazePAM TAB(*) [KlonoPIN TAB(*)] 1 mg PO BID PRN 07/12/19 [History Confirmed 07/12/19] PMH/Surg Hx/FS Hx/Imm Hx Previously Healthy: Yes Psychological History: Anxiety, Bipolar Disorder - Surgical History Surgical History: None - Family History Known Family History: Positive: Diabetes, Other - negative mental health, depression - Social History Alcohol Use: None Substance Use Type: None Substance Use Comment - Amount & Last Used: CBD oil Smoking Status (MU): Never Smoked Tobacco Type: Cigarettes Have You Smoked in the Last Year: Yes - reports he smokes "on occasion", identifying one cigarette "every so often" When Did the Patient Quit Smoking/Using Tobacco: last used a cigarette in June, - Immunization History Most Recent Influenza Vaccination: has not received Most Recent Tetanus Shot: up to date Most Recent Pneumonia Vaccination: n/a Review of Systems All Other Systems Reviewed And Are Negative: Yes Constitutional: Positive: Other - SEE HPI Skin: Positive: Negative Eyes: Positive: Negative ENT: Positive: Negative Respiratory: Positive: Negative Cardiovascular: Positive: Negative Gastrointestinal: Positive: Negative Genitourinary: Positive: Negative Motor: Positive: Negative Neurovascular: Positive: Negative Musculoskeletal: Positive: Myalgia Neurological: Positive: Headache Psychological: Positive: Negative Is Patient Immunocompromised?: No Physical Exam Triage Information Reviewed: Yes Appearance: Well-Appearing, No Pain Distress, Well-Nourished Vital Signs: Initial Vital Signs Temp 98.1 F 07/12/19 10:57 Pulse 105 07/12/19 10:57 Resp 16 07/12/19 10:57 BP 144/94 07/12/19 10:57 Pulse Ox 98 07/12/19 10:57 Vital Signs Reviewed: Yes Eye Exam: Normal Eyes: Positive: Conjunctiva Clear ENT: Positive: Pharynx normal, TMs normal Neck: Positive: Supple, Other: - Neck is supple with full range of motion. Some tenderness to palpation bilateral CVA areas but patient reports that is no different and tenderness than anywhere else. Respiratory: Positive: Lungs clear, Normal breath sounds, No respiratory distress Cardiovascular: Positive: RRR Abdomen Description: Positive: Nontender, Soft Musculoskeletal: Positive: Strength Intact, ROM Intact Neurological: Positive: Alert, Muscle Tone Normal Psychological: Positive: Age Appropriate Behavior Skin Exam: Normal Course/Dx - Course Course Of Treatment: Here in clinic the patient does not appear ill. His neck is supple with full range of motion. No fevers. Lyme disease is a possibility for his symptoms. CRP CBC CMP Monospot and Lyme screen of all been drawn here in clinic. Patient reports that his primary care wanted to hear from him on Sunday, July 14, 2019. He is planning to contact them and follow-up with them. We discussed the signs and symptoms of meningitis which the patient does clinically not have at this time. I let the patient know that if his symptoms worsened or he had any symptoms of meningitis he needs to get evaluation right away in the emergency department. - Diagnoses Provider Diagnosis: Myalgia, Headache Discharge ED - Sign-Out/Discharge Documenting (check all that apply): Patient Departure All imaging exams completed and their final reports reviewed: No Studies - Discharge Plan Condition: Stable Disposition: HOME Patient Education Materials: Lyme Disease (ED), Acute Headache (ED), Musculoskeletal Pain (ED) Referrals: Otilio Malin MD [Primary Care Provider] - Additional Instructions: FOLLOW UP WITH YOUR DOCTOR 07/14/19. BLOOD WORK DRAWN TODAY IN CLINIC; CRP, CBC, CMP, MONOSPOT, LYME SCREEN. GO TO THE EMERGENCY DEPARTMENT IF WORSE; FEVERS, SIGNS OF MENINGITIS, YOU FEEL ILL OR ANY QUESTIONS OR CONCERNS. - Billing Disposition and Condition Condition: STABLE Disposition: Home
[2019-07-12 15:05] LABS: ABS Eosinophils 0.3 10^3/ul (0-0.6); ABS Lymphocytes 1.9 10^3/ul (1.0-4.8); ABS Monocytes 0.7 10^3/ul (0-0.8); Eosinophil % 4.2 %; Hematocrit 46 % (42-52); Hemoglobin 16.1 g/dL (14.0-18.0); Lymphocyte % 31.9 %; Mean Corpuscular HGB Conc 35 g/dL (31-36); Mean Corpuscular Hemoglobin 31 pg (27-31); Mean Corpuscular Volume 89 fL (80-94); Mean Platelet Volume 7.5 fL (7.4-10.4); Nucleated Red Blood Cells % 0.2; Platelet Count 254 10^3/uL (150-450); Red Cell Distribution Width 14 % (10-15)
[2019-07-12 15:11] LABS: Albumin 4.6 g/dL (3.2-5.2); Potassium 4.6 mmol/L (3.5-5.0); Total Bilirubin 0.4 mg/dL (0.2-1.0)
[2019-07-12 15:17] LABS: Albumin/Globulin Ratio 1.8 (1-3); BUN/Creatinine Ratio 16.9 (8-20); C Reactive Protein 3.02 mg/L (<8.01); EGFR African American 122.4 (>60); EGFR Non-African American 101.1 (>60); Globulin 2.6 g/dL (2-4); Total Protein 7.2 g/dL (6.4-8.9)
[2019-07-15 15:17] LABS: EBV Capsid Ag IgG Ab Positive (Negative); EBV Capsid Ag IgM Ab Negative (Negative); Epstein-Barr Nuclear Antigen Positive (Negative)
== END 2019-07-12 11:27 | disposition home or self-care (01) ==
LOC: UCEAST 10:49
DX: R51 Headache (principal); M79.10 Myalgia, unspecified site; F41.9 Anxiety disorder, unspecified; F31.9 Bipolar disorder, unspecified
CPT/HCPCS: 36415; 80053; 85025; 86140; 86308; 86618; 86664; 86665; 99211; G0463

== ENCOUNTER 2019-08-09 11:07 | Emergency (ER) | payer MEDICAID ==
[2019-08-09 11:55] VITALS: BP 158/97
--- NOTE | 2019-08-09 13:01 | UC ---
Headache HPI - HPI Summary HPI Summary: 44-year-old male comes in with a chief complaint of a headache. Been going on for about 6 weeks. It is usually is a 4-6 out of 10 pain. No fevers or chills. No rhinorrhea. No focal weakness or numbness or change in vision or speech. Is also been having some body aches. At night he's been having GERD symptoms with waking up with burning sensation in his throat and vomiting. He has tried some [id number] Maalox with minimal relief of the GERD symptoms. No neck stiffness. On July 12 he was tested for Lyme which was negative. He did follow-up with his primary care physician after his visit here on July 12, 2019. Patient reports he recently changed jobs and it's hard for him to get into see his primary care physician. - History Of Current Complaint Chief Complaint: UCGeneralIllness Stated Complaint: HEADACHE Time Seen by Provider: 08/09/19 12:33 Pain Intensity: 6 - Allergies/Home Medications Allergies/Adverse Reactions: Allergies Allergy/AdvReac Type Severity Reaction Status Date / Time No Known Allergies Allergy Verified 08/09/19 11:55 Home Medications: Home Medications Multivitamin [Multivitamins] 1 each PO DAILY 08/09/19 [History Confirmed ] PMH/Surg Hx/FS Hx/Imm Hx Previously Healthy: Yes - Surgical History Surgical History: None - Family History Known Family History: Positive: Diabetes, Other - negative mental health, depression - Social History Alcohol Use: None Substance Use Type: None Substance Use Comment - Amount & Last Used: CBD oil Smoking Status (MU): Never Smoked Tobacco Type: Cigarettes Have You Smoked in the Last Year: Yes - reports he smokes "on occasion", identifying one cigarette "every so often" When Did the Patient Quit Smoking/Using Tobacco: last used a cigarette in June, - Immunization History Most Recent Influenza Vaccination: has not received Most Recent Tetanus Shot: up to date Most Recent Pneumonia Vaccination: n/a Review of Systems All Other Systems Reviewed And Are Negative: Yes Constitutional: Positive: Other - SEE HPI Skin: Positive: Negative Eyes: Positive: Negative ENT: Positive: Other - SEE HPI Respiratory: Positive: Negative Cardiovascular: Positive: Negative Gastrointestinal: Positive: Vomiting - SEE HPI Genitourinary: Positive: Negative Motor: Positive: Negative Neurovascular: Positive: Negative Musculoskeletal: Positive: Negative Neurological: Positive: Headache Psychological: Positive: Negative Is Patient Immunocompromised?: No Physical Exam Triage Information Reviewed: Yes Appearance: Well-Appearing, No Pain Distress, Well-Nourished Vital Signs: Initial Vital Signs Temp 98.7 F 08/09/19 11:50 Pulse 101 08/09/19 11:50 Resp 16 08/09/19 11:50 BP 158/97 08/09/19 11:50 Pulse Ox 99 08/09/19 11:50 Vital Signs Reviewed: Yes Eye Exam: Normal Eyes: Positive: Conjunctiva Clear ENT: Positive: Pharynx normal, TMs normal Neck: Positive: Supple Respiratory: Positive: Lungs clear, Normal breath sounds, No respiratory distress Cardiovascular: Positive: RRR Musculoskeletal: Positive: Strength Intact, ROM Intact Neurological: Positive: Alert, Muscle Tone Normal Psychological: Positive: Age Appropriate Behavior Skin Exam: Normal Headache Course/Dx - Course Course Of Treatment: No focal neurologic deficits by history on exam today. We discussed possible causes of the headache and at this time we will treat with an antibiotic for the potential of a sphenoid or ethmoid sinusitis. Patient reports he's had problems with amoxicillin in the past therefore chose Omnicef. We discussed hypertension patient to follow-up his primary care for that. Also having nighttime GERD symptoms and will treat for that. There is a potential for the GERD at night to be causing sleep disturbances which could contribute to the headache also. Plan is to follow-up his primary care doctor if anything gets worse he she get further evaluation emergency Department. - Differential Dx/Diagnosis Provider Diagnosis: Headache, GERD (gastroesophageal reflux disease), Elevated blood pressure reading Discharge ED - Sign-Out/Discharge Documenting (check all that apply): Patient Departure All imaging exams completed and their final reports reviewed: No Studies - Discharge Plan Condition: Stable Disposition: HOME Prescriptions: Cefdinir [Cefdinir 300 MG CAP] 300 mg PO BID #20 cap Omeprazole 20 mg PO BID #30 capsule. Patient Education Materials: Sinusitis (ED), Gastroesophageal Reflux Disease ( ED), Hypertension (ED), General Headache (ED) Referrals: Otilio Malin MD [Primary Care Provider] - Additional Instructions: FOLLOW UP WITH YOUR DOCTOR. GET REEVALUATED SOONER IF NOT IMPROVED OR WORSE OR ANY QUESTIONS OR CONCERNS. - Billing Disposition and Condition Condition: STABLE Disposition: Home
== END 2019-08-09 13:05 | disposition home or self-care (01) ==
LOC: UCEAST 11:07
DX: R51 Headache (principal); K21.9 Gastro-esophageal reflux disease without esophagitis; R03.0 Elevated blood-pressure reading, without diagnosis of hypertension; R11.10 Vomiting, unspecified
CPT/HCPCS: 99212; G0463